=== PATIENT | female | born 1935 | race Caucasian/White ===

== ENCOUNTER 2018-02-26 10:01 | Inpatient (IN) ==
--- NOTE | 2018-02-26 10:15 | ED ---
HPI General Chief Complaint: Altered Mental Status Stated Complaint: Poss AMS Time Seen by Provider: 02/26/18 10:09 History of Present Illness HPI narrative: Patient is 82-year-old male was brought from longterm. Mental status, patient is responsible for pain stimuli, lethargic, oriented to her name only. She has history of dementia COPD CHF. Presented to us saturation of 84 on room air. She complained about pain all over. She has diminished breath sounds in both sides. Poor historian. Related Data Home Medications Medication Instructions Recorded Confirmed acetaminophen [Tylenol] 650 mg PO Q4H PRN 02/26/18 02/26/18 amlodipine [Norvasc] 5 mg PO DAILY 02/26/18 02/26/18 bisacodyl [Dulcolax (bisacodyl)] 10 mg MI DAILY PRN 02/26/18 02/26/18 furosemide [Lasix] 20 mg PO DAILY 02/26/18 02/26/18 ipratropium-albuterol 3 ml INHALATION BID 02/26/18 02/26/18 magnesium citrate [Citroma] 296 ml PO DAILY PRN 02/26/18 02/26/18 magnesium hydroxide [Milk Of 30 ml PO HS PRN 02/26/18 02/26/18 Magnesia Concentrated] mupirocin calcium [Bactroban Nasal] 1 applic INTRANASAL BID 02/26/18 02/26/18 nitroglycerin 0.4 mg SUBLINGUAL Q5-15M PRN 02/26/18 02/26/18 omeprazole 20 mg PO DAILY 02/26/18 02/26/18 quetiapine [Seroquel] 25 mg PO HS 02/26/18 02/26/18 sodium phosphates [Enema 118 ml MI DAILY PRN 02/26/18 02/26/18 Disposable] Allergies Allergy/AdvReac Type Severity Reaction Status Date / Time No Known Allergies Allergy Unverified 02/26/18 10:10 Review of Systems ROS: all other systems reviewed are negative Respiratory Reports as per HPI and Reports dyspnea PMFSH Medical History Medical History Sarbjit's disease (Acute) Adrenocortical insufficiency (Acute) Anxiety (Acute) Atrial fibrillation (Acute) COPD (chronic obstructive pulmonary disease) (Acute) Chronic kidney disease (Acute) 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) Constipation (Acute) Dementia (Acute) Dysphagia (Acute) GERD (gastroesophageal reflux disease) (Acute) Gastritis (Acute) HTN (hypertension) (Acute) Hyperlipidemia (Acute) Hypothyroidism (Acute) Pneumonia (Acute) Sleep apnea (Acute) Surgical history unknown (Acute) Social History Social History Substance History: Unable to Obtain Smoking Status: Unknown if ever smoked How Often Do You Have a Drink Containing Alcohol: Unable to Obtain Recent Travel in [facility] within the Last 8 Weeks: No Recent Out of Country Travel within the Last 8 Weeks: No Exam Narrative Exam Narrative: GENERAL: [-Patient is a 83-year-old female, altered, in respiratory distress] SKIN: Focused skin assessment warm/dry. HEAD: Atraumatic. Normocephalic. EYES: Pupils equal and round. No scleral icterus. No injection or drainage. ENT: No nasal bleeding or discharge. Mucous membranes pink and moist. NECK: Trachea midline. No JVD. CARDIOVASCULAR: Regular rate and rhythm. No murmur appreciated. RESPIRATORY: No accessory muscle use. Diffuse rhonchi no wheezing. Breath sounds diminished bilaterally. GASTROINTESTINAL: Abdomen soft, non-tender, nondistended. Hepatic and splenic margins not palpable. MUSCULOSKELETAL: No obvious deformities. No clubbing. No cyanosis. No edema. NEUROLOGICAL: Awake and alert. No obvious cranial nerve deficits. Motor grossly within normal limits. Normal speech. PSYCHIATRIC: Appropriate mood and affect; insight and judgment normal. Course Initial Documented Vital Signs Pulse Rate 91 H 02/26/18 10:06 Respiratory Rate 24 02/26/18 10:06 Pulse Oximetry 86 L 02/26/18 10:06 Last Documented Vital Signs Temperature 98.5 F 02/26/18 10:15 Pulse Rate 85 02/26/18 12:15 Respiratory Rate 26 H 02/26/18 12:15 Blood Pressure 78/56 L 02/26/18 12:15 Pulse Oximetry 100 02/26/18 12:15 Critical Care Time Critical Care Time: Yes Total Critical Care Time: 35 Attestation: Patient is septic, needs attention to vitals, 2 L of IV fluids given, blood pressure improved, patient was admitted for further evaluation and treatment. Case discussed with Dr. Mayen team, Dr. Aparicio oncologist. Medical Decision Making MDM Narrative Medical decision making narrative: Patient presented in respiratory distress Respiratory therapist will treat with DuoNeb Labs ordered Chest x-ray ordered Patient is septic most likely due to UTI and pneumonia treated with IV fluids and antibiotics Case discussed with Dr. Don team, accepted for admission Also spoke with Dr. Aparicio who was covering Dr. Zamorano patient oncologist and informing both admission Medical Screen Exam Complete: Yes Emergency Medical Condition: Yes Differential Diagnosis Differential Diagnosis: Pneumonia versus COPD exacerbation versus CHF exacerbation versus UTI versus CVA Lab Data Result diagrams: 02/26/18 10:50 02/26/18 10:50 Lab Results 02/26/18 02/26/18 02/26/18 Range/Units 10:15 10:45 10:50 WBC 6.6 (4.0-11.0) th/mm3 RBC 2.30 L (4.00-5.30) mil/mm3 Hgb 8.0 L (11.6-15.3) gm/dL Hct 24.4 L (35.0-46.0) % MCV 106.1 H (80.0-100.0) fL MCH 34.9 H (27.0-34.0) pg MCHC 32.9 (32.0-36.0) % RDW 26.0 H (11.6-17.2) % Plt Count 290 (150-450) th/mm3 MPV 9.4 (7.0-11.0) fL Prelim Diff (Auto) Slide review pending Neut % (Auto) 76.6 H (16.0-70.0) % Lymph % (Auto) 16.6 (9.0-44.0) % [place] % (Auto) 3.4 (0.0-8.0) % Eos % (Auto) 1.9 (0.0-4.0) % Baso % (Auto) 1.5 (0.0-2.0) % Neut # (Auto) 5.0 (1.8-7.7) th/mm3 Lymph # (Auto) 1.1 (1.0-4.8) th/mm3 [place] # (Auto) 0.2 (0.0-0.9) th/mm3 Eos # (Auto) 0.1 (0.0-0.4) th/mm3 Baso # (Auto) 0.1 (0.0-0.2) th/mm3 WBC Differential Manual diff final Seg Neuts % (Manual) 61 (16-70) % Band Neuts % (Manual) 24 H (0-6) % Lymphocytes % (Manual) 12 (9-44) % Eosinophils % (Manual) 1 (0-4) % Basophils % (Manual) 1 (0-2) % Myelocytes % (Man) 1 H (0-0) % Abs Neuts (Manual) 5.7 (1.8-7.7) th/mm3 Differential Comment . Platelet Estimate Normal (Normal) Platelet Morphology Enlarged H (Normal) Ovalocytes 1+ H (None) Keratocytes Occ H (None) PT (9.8-11.6) sec INR Ratio APTT (24.3-30.1) sec Puncture Site Right brachial Patient Temperature 98.6 O2 Saturation 98 (90-100) % ABG pH 7.47 H (7.380-7.420) ABG pCO2 46 H (38-42) mmHg ABG pO2 272 H (61-120) mmHg ABG HCO3 33 H (22-26) mmol/L ABG O2 Content 11.7 L (12.0-20.0) Vol % ABG Base Excess 8.9 H (-2-2) mmol/L ABG Methemoglobin 0.5 (0-2) % Betito Test Y Hemoglobin 8.0 L (12.0-16.0) G/DL Carboxyhemoglobin 1.5 (0-4) % O2 Delivery Device Nrb Liter Flow 15.00 L/M Critical Value No Sodium (136-145) meq/L Potassium (3.5-5.1) meq/L Chloride (98-107) meq/L Carbon Dioxide (21.0-32.0) meq/L Anion Gap (5-15) meq/L BUN (7-18) mg/dL Creatinine (0.50-1.00) mg/dL Estimated GFR (>89) mL/min POC Glucose (68-110) mg/dl Random Glucose (74-106) mg/dL Lactic Acid (0.4-2.0) mmol/L Calcium (8.5-10.1) mg/dL Total Bilirubin (0.2-1.0) mg/dL AST (15-37) U/L ALT (10-53) U/L Alkaline Phosphatase (45-117) U/L Troponin I (0.02-0.05) ng/mL B-Natriuretic Peptide (0-100) pg/mL Total Protein (6.4-8.2) g/dL Albumin (3.4-5.0) g/dL Urine Color Vickie (Yellw/Straw) Urine Clarity Hazy H (Clear) Urine pH 5.0 (5.0-8.5) Ur Specific [place] 1.013 (1.002-1.035) Urine Protein Negative (Neg-Trace) mg/dL Urine Glucose (UA) Negative (Negative) mg/dL Urine Ketones Negative (Negative) mg/dL Urine Occult Blood Negative (Negative) Urine Nitrate Negative (Negative) Urine Bilirubin Negative (Negative) Urine Urobilinogen Less than 2 (Less than 2) mg/dL Ur Leukocyte Esterase Moderate H (Negative) Urine RBC 2 (0-3) /hpf Urine WBC 28 H (0-5) /hpf Urine WBC Clumps Few H (None) Ur Squamous Epith Cells 9 (0-5) /hpf Ur Transition Epith Cell 4 (None) /hpf Amorphous Sediment Few H (None) /hpf Urine Bacteria Few H (None) /hpf Hyaline Casts 19 (0-3) /lpf Urine Mucus Few H (Occasional) /lpf Micro UA Comment Cath-culture ind Ur Microscopic Review Not Reportable Urine Culture Comments Cath-cult indicated 02/26/18 02/26/18 02/26/18 Range/Units 10:50 10:50 10:50 WBC (4.0-11.0) th/mm3 RBC (4.00-5.30) mil/mm3 Hgb (11.6-15.3) gm/dL Hct (35.0-46.0) % MCV (80.0-100.0) fL MCH (27.0-34.0) pg MCHC (32.0-36.0) % RDW (11.6-17.2) % Plt Count (150-450) th/mm3 MPV (7.0-11.0) fL Prelim Diff (Auto) Neut % (Auto) (16.0-70.0) % Lymph % (Auto) (9.0-44.0) % [place] % (Auto) (0.0-8.0) % Eos % (Auto) (0.0-4.0) % Baso % (Auto) (0.0-2.0) % Neut # (Auto) (1.8-7.7) th/mm3 Lymph # (Auto) (1.0-4.8) th/mm3 [place] # (Auto) (0.0-0.9) th/mm3 Eos # (Auto) (0.0-0.4) th/mm3 Baso # (Auto) (0.0-0.2) th/mm3 WBC Differential Seg Neuts % (Manual) (16-70) % Band Neuts % (Manual) (0-6) % Lymphocytes % (Manual) (9-44) % Eosinophils % (Manual) (0-4) % Basophils % (Manual) (0-2) % Myelocytes % (Man) (0-0) % Abs Neuts (Manual) (1.8-7.7) th/mm3 Differential Comment Platelet Estimate (Normal) Platelet Morphology (Normal) Ovalocytes (None) Keratocytes (None) PT 11.8 H (9.8-11.6) sec INR 1.2 Ratio APTT 29.1 (24.3-30.1) sec Puncture Site Patient Temperature O2 Saturation (90-100) % ABG pH (7.380-7.420) ABG pCO2 (38-42) mmHg ABG pO2 (61-120) mmHg ABG HCO3 (22-26) mmol/L ABG O2 Content (12.0-20.0) Vol % ABG Base Excess (-2-2) mmol/L ABG Methemoglobin (0-2) % Betito Test Hemoglobin (12.0-16.0) G/DL Carboxyhemoglobin (0-4) % O2 Delivery Device Liter Flow L/M Critical Value Sodium 142 (136-145) meq/L Potassium 2.8 L* (3.5-5.1) meq/L Chloride 100 (98-107) meq/L Carbon Dioxide 32.0 (21.0-32.0) meq/L Anion Gap 10 (5-15) meq/L BUN 17 (7-18) mg/dL Creatinine 2.97 H (0.50-1.00) mg/dL Estimated GFR 15 L (>89) mL/min POC Glucose (68-110) mg/dl Random Glucose 120 H (74-106) mg/dL Lactic Acid 0.5 (0.4-2.0) mmol/L Calcium 7.5 L (8.5-10.1) mg/dL Total Bilirubin 0.6 (0.2-1.0) mg/dL AST 11 L (15-37) U/L ALT 18 (10-53) U/L Alkaline Phosphatase 59 (45-117) U/L Troponin I 0.03 (0.02-0.05) ng/mL B-Natriuretic Peptide (0-100) pg/mL Total Protein 5.9 L (6.4-8.2) g/dL Albumin 2.6 L (3.4-5.0) g/dL Urine Color (Yellw/Straw) Urine Clarity (Clear) Urine pH (5.0-8.5) Ur Specific [place] (1.002-1.035) Urine Protein (Neg-Trace) mg/dL Urine Glucose (UA) (Negative) mg/dL Urine Ketones (Negative) mg/dL Urine Occult Blood (Negative) Urine Nitrate (Negative) Urine Bilirubin (Negative) Urine Urobilinogen (Less than 2) mg/dL Ur Leukocyte Esterase (Negative) Urine RBC (0-3) /hpf Urine WBC (0-5) /hpf Urine WBC Clumps (None) Ur Squamous Epith Cells (0-5) /hpf Ur Transition Epith Cell (None) /hpf Amorphous Sediment (None) /hpf Urine Bacteria (None) /hpf Hyaline Casts (0-3) /lpf Urine Mucus (Occasional) /lpf Micro UA Comment Ur Microscopic Review Urine Culture Comments 02/26/18 02/26/18 Range/Units 10:50 10:50 WBC (4.0-11.0) th/mm3 RBC (4.00-5.30) mil/mm3 Hgb (11.6-15.3) gm/dL Hct (35.0-46.0) % MCV (80.0-100.0) fL MCH (27.0-34.0) pg MCHC (32.0-36.0) % RDW (11.6-17.2) % Plt Count (150-450) th/mm3 MPV (7.0-11.0) fL Prelim Diff (Auto) Neut % (Auto) (16.0-70.0) % Lymph % (Auto) (9.0-44.0) % [place] % (Auto) (0.0-8.0) % Eos % (Auto) (0.0-4.0) % Baso % (Auto) (0.0-2.0) % Neut # (Auto) (1.8-7.7) th/mm3 Lymph # (Auto) (1.0-4.8) th/mm3 [place] # (Auto) (0.0-0.9) th/mm3 Eos # (Auto) (0.0-0.4) th/mm3 Baso # (Auto) (0.0-0.2) th/mm3 WBC Differential Seg Neuts % (Manual) (16-70) % Band Neuts % (Manual) (0-6) % Lymphocytes % (Manual) (9-44) % Eosinophils % (Manual) (0-4) % Basophils % (Manual) (0-2) % Myelocytes % (Man) (0-0) % Abs Neuts (Manual) (1.8-7.7) th/mm3 Differential Comment Platelet Estimate (Normal) Platelet Morphology (Normal) Ovalocytes (None) Keratocytes (None) PT (9.8-11.6) sec INR Ratio APTT (24.3-30.1) sec Puncture Site Patient Temperature O2 Saturation (90-100) % ABG pH (7.380-7.420) ABG pCO2 (38-42) mmHg ABG pO2 (61-120) mmHg ABG HCO3 (22-26) mmol/L ABG O2 Content (12.0-20.0) Vol % ABG Base Excess (-2-2) mmol/L ABG Methemoglobin (0-2) % [place] Test Hemoglobin (12.0-16.0) G/DL Carboxyhemoglobin (0-4) % O2 Delivery Device Liter Flow L/M Critical Value Sodium (136-145) meq/L Potassium (3.5-5.1) meq/L Chloride (98-107) meq/L Carbon Dioxide (21.0-32.0) meq/L Anion Gap (5-15) meq/L BUN (7-18) mg/dL Creatinine (0.50-1.00) mg/dL Estimated GFR (>89) mL/min POC Glucose 131 H (68-110) mg/dl Random Glucose (74-106) mg/dL Lactic Acid (0.4-2.0) mmol/L Calcium (8.5-10.1) mg/dL Total Bilirubin (0.2-1.0) mg/dL AST (15-37) U/L ALT (10-53) U/L Alkaline Phosphatase (45-117) U/L Troponin I (0.02-0.05) ng/mL B-Natriuretic Peptide 10 (0-100) pg/mL Total Protein (6.4-8.2) g/dL Albumin (3.4-5.0) g/dL Urine Color (Yellw/Straw) Urine Clarity (Clear) Urine pH (5.0-8.5) Ur Specific [place] (1.002-1.035) Urine Protein (Neg-Trace) mg/dL Urine Glucose (UA) (Negative) mg/dL Urine Ketones (Negative) mg/dL Urine Occult Blood (Negative) Urine Nitrate (Negative) Urine Bilirubin (Negative) Urine Urobilinogen (Less than 2) mg/dL Ur Leukocyte Esterase (Negative) Urine RBC (0-3) /hpf Urine WBC (0-5) /hpf Urine WBC Clumps (None) Ur Squamous Epith Cells (0-5) /hpf Ur Transition Epith Cell (None) /hpf Amorphous Sediment (None) /hpf Urine Bacteria (None) /hpf Hyaline Casts (0-3) /lpf Urine Mucus (Occasional) /lpf Micro UA Comment Ur Microscopic Review Urine Culture Comments Imaging Data Radiologist's impression: Chest X-Ray 02/26/18 10:15 CONCLUSION: Mild pulmonary vascular congestion. Heart is enlarged. Head CT 02/26/18 10:15 CONCLUSION: 1. 1.1 x 0.8 cm hyperdense mass in the right CP angle which likely reflects a meningioma. This does not have the typical appearance for hemorrhage although hemorrhage cannot be entirely excluded. Comparisons with prior exams if they can be made available would be beneficial in further evaluation. Alternatively, MRI examination with contrast may be obtained for better characterization. . Discharge Plan Discharge Disposition Patient Disposition: 30 Still Patient Discharge Condition Condition: Serious Discharge Details Diagnosis: Altered mental status, Sepsis, Aspiration pneumonia, Acute UTI Physicians Team ED Provider: Wilbert Kim Primary Care Provider: Woody Don Rxs /Orders / Referrals /Forms Prescriptions: No Action quetiapine [Seroquel] 25 mg Tablet 25 mg PO HS RF: 0 acetaminophen [Tylenol] 325 mg Tablet 650 mg PO Q4H PRN (Reason: Pain/Temp elevation) RF: 0 ipratropium-albuterol 0.5 mg-3 mg(2.5 mg base)/3 mL Solution For Nebulization 3 ml INHALATION BID RF: 0 amlodipine [Norvasc] 5 mg Tablet 5 mg PO DAILY RF: 0 bisacodyl [Dulcolax (bisacodyl)] 10 mg Suppository 10 mg MI DAILY PRN (Reason: If no reults 1 day after MOM) RF: 0 sodium phosphates [Enema Disposable] 19-7 gram/118 mL Enema 118 ml MI DAILY PRN (Reason: If no results 1 day after supp) RF: 0 nitroglycerin 0.4 mg Tablet, Sublingual 0.4 mg SUBLINGUAL Q5-15M PRN (Reason: Chest Pain) RF: 0 magnesium citrate [Citroma] Solution 296 ml PO DAILY PRN (Reason: If no results from enema) RF: 0 furosemide [Lasix] 20 mg Tablet 20 mg PO DAILY RF: 0 mupirocin calcium [Bactroban Nasal] 2 % Ointment 1 applic INTRANASAL BID RF: 0 magnesium hydroxide [Milk Of Magnesia Concentrated] 2,400 mg/10 mL Suspension 30 ml PO HS PRN (Reason: If no BM in 3 days) RF: 0 omeprazole 20 mg Tablet,Delayed Release (Dr/Ec) 20 mg PO DAILY RF: 0 Discharge Interventions Interventions: Vital Signs Last Done: 02/26/18 12:15 Status ED Status: With Doctor
[2018-02-26] MEDS ORDERED: Piperacil/Tazo 3.375 GM Premix 50 ML IV.SIG ONE (10:23)
[2018-02-26] MEDS: Sod Chloride 0.9% Inj 1,000 ML IV.CONT SCH ×8 (10:26→21:15)
[2018-02-26] MEDS ORDERED: Sod Chloride 0.9% Inj 1,000 ML IV.CONT SCH (10:30)
--- NOTE | 2018-02-26 10:45 | XR ---
EXAM DATE: 02/26/2018 10:41 AM EDT AGE/SEX: 82 years / Female INDICATIONS: Unresponsive CLINICAL DATA: This is the patient's initial encounter. Patient reports that signs and symptoms have been present for 1 day and indicates a pain score of Nonresponsive. MEDICAL/SURGICAL HISTORY: Chronic obstructive pulmonary disease. Non-responsive. COMPARISON: No prior exams available for comparison. FINDINGS: Single view the chest centered the heart is enlarged. There is mild pulmonary vascular prominence. Th ere is no visible pneumothorax. No infiltrate or mass is seen. Marked osteoarthritis left shoulder CONCLUSION: Mild pulmonary vascular congestion. Heart is enlarged. Electronically signed by: Aurelio Vera MD 02/26/2018 10:44 AM EDT
[2018-02-26 10:57] LABS: ABG Base Excess 8.9 mmol/L (-2-2); ABG PCO2 46 mmHg (38-42); ABG PO2 272 mmHg (61-120)
[2018-02-26] MEDS: Vancomycin Inj 1,000 MG in Sodium Chlor 0.9% Inj 250 ML IV.SIG SCH ×2 (11:06→23:42)
[2018-02-26 11:25] LABS: Amorphous Sediment,Urine Few /hpf; Bacteria,Urine Few /hpf; Bilirubin,Urine Negative (Negative); Color,Urine Amber (Yellw/Straw); Glucose,Urine (UA) Negative (Negative); Hyaline Casts,Urine 19 /lpf (0-3); Leukocyte Esterase,Urine Moderate (Negative); Mucus,Urine Few /lpf (Occasional); Nitrite,Urine Negative (Negative); Specific Gravity,Urine 1.013 (1.002-1.035); Squamous Epithelial Cell,Urine 9 /hpf (0-5); Transitional Epi Cells,Urine 4 /hpf
[2018-02-26 11:26] LABS: Clarity,Urine Hazy (Clear)
[2018-02-26 11:27] LABS: Baso # (Auto) 0.1 th/mm3 (0.0-0.2); Baso % (Auto) 1.5 % (0.0-2.0); Eos # (Auto) 0.1 th/mm3 (0.0-0.4); Eos % (Auto) 1.9 % (0.0-4.0); Hematocrit 24.4 % (35.0-46.0); Lymph # (Auto) 1.1 th/mm3 (1.0-4.8); Lymph % (Auto) 16.6 % (9.0-44.0); Mean Corpuscular HGB Conc 32.9 % (32.0-36.0); Mean Corpuscular Hemoglobin 34.9 pg (27.0-34.0); Mean Corpuscular Volume 106.1 fL (80.0-100.0); Mean Platelet Volume 9.4 fL (7.0-11.0); Mono # (Auto) 0.2 th/mm3 (0.0-0.9); Mono % (Auto) 3.4 % (0.0-8.0); Neut % (Auto) 76.6 % (16.0-70.0); Platelet Count 290 th/mm3 (150-450); White Blood Count 6.6 th/mm3 (4.0-11.0)
[2018-02-26 11:29] LABS: Activated Partial Thrombo Time 29.1 sec (24.3-30.1); INR 1.2 Ratio; Prothrombin Time 11.8 sec (9.8-11.6)
--- NOTE | 2018-02-26 11:41 | CT ---
EXAM DATE: 02/26/2018 11:35 AM EDT AGE/SEX: 82 years / Female INDICATIONS: Altered mental status CLINICAL DATA: This is the patient's initial encounter. Patient reports that signs and symptoms have been present for 1 day and indicates a pain score of Nonresponsive. MEDICAL/SURGICAL HISTORY: Chronic obstructive pulmonary disease. Dementia. None. RADIATION DOSE: 33.68 CTDI (mGy) COMPARISON: No prior exams available for comparison. TECHNIQUE: CT of the head without contrast. Using automated exposure control and adjustment of the mA and/or kV according to patient size, radiation dose was kept as low as reasonably achievable to ob tain optimal diagnostic quality images. DICOM format image data is available electronically for revi ew and comparison. FINDINGS: Cerebrum: Moderate diffuse cerebral atrophy. The ventricles are normal for degree of atrophy. Modera te periventricular white matter hypodensities. No evidence of midline shift, mass lesion, hemorrhage or acute infarction. No extraaxial fluid collections are seen. Posterior Fossa: There is a 1.1 x 0.8 cm hyperdense mass in the right CP angle which is incompletely imaged due to motion artifact. Does appear to potentially have a dural tail superiorly. The cerebell um and brainstem are intact. The 4th ventricle is midline. The cerebellopontine angle is unremarkab le. Extracranial: The visualized portion of the orbits is intact. Skull: The calvaria is intact. No evidence of skull fracture. CONCLUSION: 1. 1.1 x 0.8 cm hyperdense mass in the right CP angle which likely reflects a meningioma. This does not have the typical appearance for hemorrhage although hemorrhage cannot be entirely excluded. Fabio risons with prior exams if they can be made available would be beneficial in further evaluation. Alte rnatively, MRI examination with contrast may be obtained for better characterization. . Electronically signed by: Anthony De La Paz MD 02/26/2018 11:40 AM EDT
[2018-02-26 11:53] LABS: Albumin 2.6 g/dL (3.4-5.0); Anion Gap 10 meq/L (5-15); Aspartate Aminotransferase 11 U/L (15-37); Blood Urea Nitrogen 17 mg/dL (7-18); Calcium 7.5 mg/dL (8.5-10.1); Chloride 100 meq/L (98-107); Glomerular Filtration Rate 15 mL/min (>89); Glucose,Random 120 mg/dL (74-106); Sodium 142 meq/L (136-145)
[2018-02-26 11:58] LABS: Potassium 2.8 meq/L (3.5-5.1)
[2018-02-26 12:15] LABS: Alanine Aminotransferase 18 U/L (10-53); Alkaline Phosphatase 59 U/L (45-117); Total Protein 5.9 g/dL (6.4-8.2); Troponin I 0.03 ng/mL (0.02-0.05)
[2018-02-26 12:17] LABS: Eosinophils 1 % (0-4); Lymphocytes 12 % (9-44); Myelocytes 1 % (0-0)
[2018-02-26] MEDS ORDERED: Potassium Chlor 40 mEq Premix 40 MEQ/100 ML PIGGYBACK IV.SIG ONE (12:17)
[2018-02-26 12:20] LABS: Ovalocytes 1+; Platelet Estimate Normal (Normal)
[2018-02-26] MEDS ORDERED: Nitroglycerin SL (Override) 0.4 MG Tab SL PRN (13:18)
[2018-02-26] MEDS: Potassium Chlor 10 mEq Premix 10 MEQ/100 ML PIGGYBACK IV.SIG SCH ×4 (14:06→18:22)
[2018-02-26] MEDS ORDERED: Bisacodyl 10 MG Supp RECTAL PRN (14:38)
--- NOTE | 2018-02-26 17:33 | P.HPFP ---
History of Present Illness Service: [facility] Primary Care Physician: Woody Don DO Chief Complaint: altered mental status confused History of Present Illness: pt has had recurrent pneumoniae may be aspiration or a resistant organism not identified - Diagnosis (1) Aspiration pneumonia Inpatient Certification: I certify that the inpatient services were ordered in accordance with Medicare regulations governing the order. This includes certification that hospital inpatient services are reasonable and necessary and in the case of services not specified as inpatient-only under 42 CFR 419.22(n), that they are appropriately provided as inpatient services in accordance to with the 2-midnight benchmark under 43 CFR 412.3(e) Estimated Total Length of Stay (Days): 3 Plans for Post Hospital Care: SNF Review of Systems All other systems reviewed negative except as stated in HPI Respiratory: Reports cough, Reports shortness of breath PMFSH - History History Provided By: Medical Record - Medical History Medical History: Medical History (Last Updated 02/26/18 @ 10:52 by Meera Rhodes) Sarbjit's disease Adrenocortical insufficiency Anxiety Atrial fibrillation COPD (chronic obstructive pulmonary disease) Chronic kidney disease Congenital stenosis and stricture of esophagus Constipation Dementia Dysphagia GERD (gastroesophageal reflux disease) Gastritis HTN (hypertension) Hyperlipidemia Hypothyroidism Pneumonia Sleep apnea Surgical history unknown - Tobacco History Smoking Status: Unknown if ever smoked - Alcohol History How Often Do You Have a Drink Containing Alcohol: Unable to Obtain - Substance Use History Substance History: Unable to Obtain - Travel History Recent Travel in the [place] Within the Last 8 Weeks: No Recent Travel Out of the Country Within the Last 8 Weeks: No - Immunization History Tetanus Immunization: Unable to Assess Hx Influenza Vaccine This Season: Unable to Assess Medications and Allergies Active Medications: Active Medications Acetaminophen (Tylenol) 650 mg PO Q4H PRN PRN Reason: Pain 1-10/Temp elevation Albuterol (Duoneb Neb (Mirian)) 1 ampul NEB BID NEB [facility] Bisacodyl (Dulcolax Supp) 10 mg RECTAL DAILY PRN PRN Reason: If no reults 1 day after MOM Sodium Chloride (Ns Inj) 1,000 mls @ 150 mls/hr IV.CONT .Q6H40M [facility] Last Admin: 02/26/18 10:26 Dose: 125 mls/hr Vancomycin HCl 1,000 mg/ (Sodium Chloride) 250 mls @ 250 mls/hr IV.SIG Q12H [facility] Stop: 02/26/18 23:59 Last Infusion: 02/26/18 12:15 Dose: Infused Sodium Chloride (Ns Inj) 1,000 mls @ 1,000 mls/hr IV.CONT .Q1H [facility] Last Admin: 02/26/18 17:18 Dose: Not Given Nitroglycerin (Nitrostat Sl (Override)) 0.4 mg SL Q5M PRN PRN Reason: Chest Pain Pantoprazole Sodium (Protonix) 20 mg PO DAILY [facility]IAN Quetiapine Fumarate (Seroquel) 25 mg PO HS [facility] Sodium Chloride (Ns Flush) 2 ml IV.FLUSH PRN PRN PRN Reason: FLUSH AFTER USING IV ACCESS Sodium Chloride (Ns Flush) 2 ml IV.FLUSH PRN PRN PRN Reason: FLUSH AFTER USING IV ACCESS Allergies Allergy/AdvReac Type Severity Reaction Status Date / Time No Known Allergies Allergy Unverified 02/26/18 10:10 Home Medications Medication Instructions Recorded Confirmed Type acetaminophen [Tylenol] 650 mg PO Q4H PRN 02/26/18 02/26/18 History amlodipine [Norvasc] 5 mg PO DAILY 02/26/18 02/26/18 History bisacodyl [Dulcolax (bisacodyl)] 10 mg MI DAILY PRN 02/26/18 02/26/18 History furosemide [Lasix] 20 mg PO DAILY 02/26/18 02/26/18 History ipratropium-albuterol 3 ml INHALATION BID 02/26/18 02/26/18 History magnesium citrate [Citroma] 296 ml PO DAILY PRN 02/26/18 02/26/18 History magnesium hydroxide [Milk Of 30 ml PO HS PRN 02/26/18 02/26/18 History Magnesia Concentrated] mupirocin calcium [Bactroban Nasal] 1 applic INTRANASAL BID 02/26/18 02/26/18 History nitroglycerin 0.4 mg SUBLINGUAL Q5-15M PRN 02/26/18 02/26/18 History omeprazole 20 mg PO DAILY 02/26/18 02/26/18 History quetiapine [Seroquel] 25 mg PO HS 02/26/18 02/26/18 History sodium phosphates [Enema 118 ml MI DAILY PRN 02/26/18 02/26/18 History Disposable] Exam Vital signs: Vital Signs 02/26/18 10:06 02/26/18 10:15 02/26/18 10:25 Temperature 98.5 F Pulse Rate 91 H 93 H 98 H Respiratory Rate 24 24 14 Blood Pressure 74/45 L Pulse Oximetry 86 L 96 02/26/18 10:30 02/26/18 10:32 02/26/18 10:55 Temperature Pulse Rate 87 Respiratory Rate 24 24 Blood Pressure 109/54 L Pulse Oximetry 96 97 97 02/26/18 11:00 02/26/18 11:53 02/26/18 12:15 Temperature Pulse Rate 82 82 85 Respiratory Rate 26 H 26 H 26 H Blood Pressure 93/62 L 102/50 L 78/56 L Pulse Oximetry 98 98 100 02/26/18 12:30 02/26/18 13:30 02/26/18 14:00 Temperature Pulse Rate 80 82 91 H Respiratory Rate 24 24 24 Blood Pressure 84/47 L 94/54 L 113/56 L Pulse Oximetry 100 100 100 02/26/18 15:08 02/26/18 15:27 Temperature Pulse Rate 85 Respiratory Rate 22 21 Blood Pressure 104/68 Pulse Oximetry 100 Intake & Output 02/25/18 02/26/18 02/26/18 18:59 06:59 18:59 Intake Total 1450 / 1450 Balance 1450 / 1450 Weight 77.111 kg Intake: IV 1450 / 1450 NS Inj 1,000 ML @ 1000 mls/hr 1000 / 1000 IV.CONT .Q1H [facility] Rx#:[id number] KCl 10 mEq Premix Inj 10 meq In 200 / 200 100 ml @ 100 mls/hr IV.SIG Q1H [facility] Rx#:[id number] Vancomycin Inj 1,000 MG In NS 250 / 250 Inj 250 ML @ 250 mls/hr IV.SIG Q12H [facility] Rx#:[id number] - Routine Neurological Exam Present: altered mental status Results - Labs Result diagrams: 02/26/18 10:50 02/26/18 10:50 Abnormal lab results 02/26/18 02/26/18 02/26/18 Range/Units 10:15 10:45 10:50 RBC 2.30 L (4.00-5.30) mil/mm3 Hgb 8.0 L (11.6-15.3) gm/dL Hct 24.4 L (35.0-46.0) % MCV 106.1 H (80.0-100.0) fL MCH 34.9 H (27.0-34.0) pg RDW 26.0 H (11.6-17.2) % Neut % (Auto) 76.6 H (16.0-70.0) % Band Neuts % (Manual) 24 H (0-6) % Myelocytes % (Man) 1 H (0-0) % Platelet Morphology Enlarged H (Normal) Ovalocytes 1+ H (None) Keratocytes Occ H (None) PT (9.8-11.6) sec ABG pH 7.47 H (7.380-7.420) ABG pCO2 46 H (38-42) mmHg ABG pO2 272 H (61-120) mmHg ABG HCO3 33 H (22-26) mmol/L ABG O2 Content 11.7 L (12.0-20.0) Vol % ABG Base Excess 8.9 H (-2-2) mmol/L Hemoglobin 8.0 L (12.0-16.0) G/DL Potassium (3.5-5.1) meq/L Creatinine (0.50-1.00) mg/dL Estimated GFR (>89) mL/min POC Glucose (68-110) mg/dl Random Glucose (74-106) mg/dL Calcium (8.5-10.1) mg/dL AST (15-37) U/L Total Protein (6.4-8.2) g/dL Albumin (3.4-5.0) g/dL Urine Clarity Hazy H (Clear) Ur Leukocyte Esterase Moderate H (Negative) Urine WBC 28 H (0-5) /hpf Urine WBC Clumps Few H (None) Amorphous Sediment Few H (None) /hpf Urine Bacteria Few H (None) /hpf Urine Mucus Few H (Occasional) /lpf 02/26/18 02/26/18 02/26/18 Range/Units 10:50 10:50 10:50 RBC (4.00-5.30) mil/mm3 Hgb (11.6-15.3) gm/dL Hct (35.0-46.0) % MCV (80.0-100.0) fL MCH (27.0-34.0) pg RDW (11.6-17.2) % Neut % (Auto) (16.0-70.0) % Band Neuts % (Manual) (0-6) % Myelocytes % (Man) (0-0) % Platelet Morphology (Normal) Ovalocytes (None) Keratocytes (None) PT 11.8 H (9.8-11.6) sec ABG pH (7.380-7.420) ABG pCO2 (38-42) mmHg ABG pO2 (61-120) mmHg ABG HCO3 (22-26) mmol/L ABG O2 Content (12.0-20.0) Vol % ABG Base Excess (-2-2) mmol/L Hemoglobin (12.0-16.0) G/DL Potassium 2.8 L* (3.5-5.1) meq/L Creatinine 2.97 H (0.50-1.00) mg/dL Estimated GFR 15 L (>89) mL/min POC Glucose 131 H (68-110) mg/dl Random Glucose 120 H (74-106) mg/dL Calcium 7.5 L (8.5-10.1) mg/dL AST 11 L (15-37) U/L Total Protein 5.9 L (6.4-8.2) g/dL Albumin 2.6 L (3.4-5.0) g/dL Urine Clarity (Clear) Ur Leukocyte Esterase (Negative) Urine WBC (0-5) /hpf Urine WBC Clumps (None) Amorphous Sediment (None) /hpf Urine Bacteria (None) /hpf Urine Mucus (Occasional) /lpf Short CBC 02/26/18 Range/Units 10:50 WBC 6.6 (4.0-11.0) th/mm3 Hgb 8.0 L (11.6-15.3) gm/dL Hct 24.4 L (35.0-46.0) % Plt Count 290 (150-450) th/mm3 BMP 02/26/18 10:50 Sodium 142 Potassium 2.8 L* Chloride 100 Carbon Dioxide 32.0 BUN 17 Creatinine 2.97 H Calcium 7.5 L Cardiac Enzymes 02/26/18 Range/Units 10:50 Troponin I 0.03 (0.02-0.05) ng/mL Liver Function 02/26/18 Range/Units 10:50 Total Bilirubin 0.6 (0.2-1.0) mg/dL AST 11 L (15-37) U/L ALT 18 (10-53) U/L Alkaline Phosphatase 59 (45-117) U/L Albumin 2.6 L (3.4-5.0) g/dL Urine 02/26/18 Range/Units 10:45 Urine Color Vickie (Yellw/Straw) Urine Clarity Hazy H (Clear) Urine pH 5.0 (5.0-8.5) Ur Specific [place] 1.013 (1.002-1.035) Urine Protein Negative (Neg-Trace) mg/dL Urine Glucose (UA) Negative (Negative) mg/dL - Imaging Impressions Chest X-Ray 02/26/18 10:15 CONCLUSION: Mild pulmonary vascular congestion. Heart is enlarged. Head CT 02/26/18 10:15 CONCLUSION: 1. 1.1 x 0.8 cm hyperdense mass in the right CP angle which likely reflects a meningioma. This does not have the typical appearance for hemorrhage although hemorrhage cannot be entirely excluded. Comparisons with prior exams if they can be made available would be beneficial in further evaluation. Alternatively, MRI examination with contrast may be obtained for better characterization. . Caprini VTE Risk Assessment Caprini VTE Risk Assessment: No/Low Risk (score <= 1) Caprini Risk Assessment Model: Point Value = 1 Point Value = 2 Point Value = 3 Point Value = 5 Age 41-60 Minor surgery BMI > 25 kg/m2 Swollen legs Varicose veins or History of unexplained or recurrent spontaneous Oral contraceptives or hormone replacement Sepsis (< 1 month) Serious lung disease, including pneumonia (< 1 month) Abnormal pulmonary function Acute myocardial infarction Congestive heart failure (< 1 month) History of inflammatory bowel disease Medical patient at bed rest Age 61-74 Arthroscopic surgery Major open surgery (> 45 min) Laparoscopic surgery (> 45 min) Malignancy Confined to bed (> 72 hours) Immobilizing plaster cast Central venous access Age >= 75 History of VTE Family history of VTE Factor V Leiden Prothrombin [id number] Lupus anticoagulant Anticardiolipin antibodies Elevated serum homocysteine Heparin-induced thrombocytopenia Other congenital or acquired thrombophilia Stroke (< 1 month) Elective arthroplasty Hip, pelvis, or leg fracture Acute spinal cord injury (< 1 month) Prophylaxis Regimen: Total Risk Factor Score Risk Level Prophylaxis Regimen 0-1 Low Early ambulation 2 Moderate Order ONE of the following: *Sequential Compression Device (SCD) *Heparin 5000 units SQ BID 3-4 Higher Order ONE of the following medications: *Heparin 5000 units SQ TID *Enoxaparin/Lovenox 40 mg SQ daily (WT < 150 kg, CrCl > 30 mL/min) *Enoxaparin/Lovenox 30 mg SQ daily (WT < 150 kg, CrCl > 10-29 mL/min) *Enoxaparin/Lovenox 30 mg SQ BID (WT < 150 kg, CrCl > 30 mL/min) AND/OR *Sequential Compression Device (SCD) 5 or more Highest Order ONE of the following medications: *Heparin 5000 units SQ TID (Preferred with Epidurals) *Enoxaparin/Lovenox 40 mg SQ daily (WT < 150 kg, CrCl > 30 mL/min) *Enoxaparin/Lovenox 30 mg SQ daily (WT < 150 kg, CrCl > 10-29 mL/min) *Enoxaparin/Lovenox 30 mg SQ BID (WT < 150 kg, CrCl > 30 mL/min) AND *Sequential Compression Device (SCD) Assessment and Plan - Assessment (1) Aspiration pneumonia Code(s): J69.0 - Pneumonitis due to inhalation of food and vomit Status: Acute - Assessment and Plan iv abx pulmonary and ID consult
--- NOTE | 2018-02-26 17:40 | ECG ---
Date Performed: 02/26/2018 Time Performed: 10:40:33 PTAGE: 82 years EKG: Sinus rhythm ST DEVIATION AND MODERATE T-WAVE ABNORMALITY, CONSIDER ANTEROLATERAL ISCHEMIA ABNORMAL ECG NO PREVIOUS TRACING DOCTOR: Sae German Interpretating Date/Time 02/26/2018 17:37:30
[2018-02-26 20:05] LABS: Hematocrit 26.1 % (35.0-46.0); Hemoglobin 8.3 gm/dL (11.6-15.3); Mean Corpuscular Hemoglobin 34.8 pg (27.0-34.0); Mean Corpuscular Volume 108.7 fL (80.0-100.0); Mean Platelet Volume 9.9 fL (7.0-11.0); Platelet Count 280 th/mm3 (150-450); Red Cell Distribution Width 26.3 % (11.6-17.2); White Blood Count 6.7 th/mm3 (4.0-11.0)
[2018-02-26 20:20] LABS: Calcium 6.8 mg/dL (8.5-10.1); Carbon Dioxide 31.7 meq/L (21.0-32.0); Potassium 3.4 meq/L (3.5-5.1)
[2018-02-26 20:38] LABS: Total Protein 6.3 g/dL (6.4-8.2)
[2018-02-26] MEDS ORDERED: QUEtiapine 25 MG Tablet PO SCH (21:00)
--- NOTE | 2018-02-26 21:31 | MB ---
cc: Romario Wilks MD DATE: 02/26/2018 REQUESTING PHYSICIAN: Woody Don DO REASON FOR CONSULTATION: Pneumonia. HISTORY OF PRESENT ILLNESS: Mrs. Cano is an 82-year-old female who lives in the residential. She was brought from the residential because of less responsiveness. She was very lethargic, barely responding to painful stimuli. The patient was evaluated in the emergency room. She had a workup done. Her CBC shows WBC count of 6.6, hemoglobin 8, hematocrit 24.4, MCV 96, platelet count 290. Sodium 142, potassium 2.8, chloride 100, CO2 32, BUN 17, creatinine 2.97. Blood gas on 15 liter nonrebreather mask, pH 7.47, pCO2 of 46, pO2 272, bicarbonate 33, saturation 98%. Her chest x-ray shows mild vascular congestion and cardiomegaly. She had a CT scan of the head done, which shows moderate diffuse cerebral atrophy. The patient is obtunded. There is some response to sternal rubs. PAST MEDICAL HISTORY: As per record is significant for history of chronic obstructive pulmonary disease, CHF, recurrent pneumonia, dementia. MEDICATIONS: She is currently takin. Tylenol 2. Albuterol. 3. Atrovent nebulizer treatment. 4. Nitroglycerin. 4. Protonix 20 mg a day. 5. Seroquel 25 mg a day. 6. Vancomycin IV. 7. Zosyn IV. ALLERGIES: NO KNOWN DRUG ALLERGIES. FAMILY HISTORY: Noncontributory. PHYSICAL EXAMINATION: GENERAL: Elderly female, minimal response to sternal rub. VITAL SIGNS: Her blood pressure 104/68, heart rate 84, respirations 22, saturation 100%. HEENT: Pupils reactive to light. NECK: Supple. JVD not raised. CHEST: Equal bilaterally. No rhonchi. HEART: S1, S2 normal. ABDOMEN: Soft, nondistended. Bowel sounds are present. EXTREMITIES: No edema. IMPRESSION: 1. Respiratory failure. 2. Pneumonia, possible aspiration. 3. Dementia. 4. Anemia. 5. Renal insufficiency. 6. Hypokalemia. PLAN: We will continue antibiotics vancomycin and Zosyn. Check her cultures. Supplemental oxygen and wean oxygen to keep the saturation greater than 90%. Her potassium is being replaced. Monitor electrolytes. Further treatment pending the course in the hospital. Thank you Dr. Don for this consult. MD GIL Almeida/ns/do , 05:47 PM , 05:56 PM HERMILA
[2018-02-26] MEDS ORDERED: Custom Consult Pharmacy OTHER PRN (21:45)
[2018-02-26 21:48] LABS: Eosinophils 4 % (0-4); Lymphocytes 7 % (9-44); Metamyelocytes 1 % (0-1); Monocytes 2 % (0-8)
[2018-02-26] MEDS ORDERED: Calcium Chloride Inj 1 GM in Sodium Chlor 0.9% Inj 100 ML IV.SIG ONE (22:00)
[2018-02-26 22:13] LABS: Dimorphic RBC Present
[2018-02-26 22:15] LABS: Platelet Estimate Normal (Normal)
[2018-02-27] MEDS: Sod Chloride 0.9% Inj 1,000 ML IV.CONT SCH ×3 (02:23→16:45)
[2018-02-27 07:39] LABS: Calcium 7.6 mg/dL (8.5-10.1); Carbon Dioxide 28.2 meq/L (21.0-32.0); Potassium 3.4 meq/L (3.5-5.1)
[2018-02-27 07:51] LABS: Hematocrit 25.6 % (35.0-46.0); Hemoglobin 8.2 gm/dL (11.6-15.3); Mean Corpuscular HGB Conc 31.8 % (32.0-36.0); Mean Corpuscular Hemoglobin 34.4 pg (27.0-34.0); Mean Corpuscular Volume 108.1 fL (80.0-100.0); Mean Platelet Volume 9.7 fL (7.0-11.0); Platelet Count 235 th/mm3 (150-450); Red Blood Count 2.37 mil/mm3 (4.00-5.30); Red Cell Distribution Width 26.8 % (11.6-17.2); White Blood Count 5.7 th/mm3 (4.0-11.0)
[2018-02-27] MEDS: Pantoprazole Sodium 20 MG DR Tablet PO SCH ×2 (08:53→11:12)
--- NOTE | 2018-02-27 08:57 | P.PNFP ---
Subjective Interval history: No apparent distress Somnolent Results - Labs Result diagrams: 02/27/18 07:06 02/27/18 07:06 Abnormal lab results 02/26/18 02/26/18 02/26/18 Range/Units 10:15 10:45 10:50 RBC 2.30 L (4.00-5.30) mil/mm3 Hgb 8.0 L (11.6-15.3) gm/dL Hct 24.4 L (35.0-46.0) % MCV 106.1 H (80.0-100.0) fL MCH 34.9 H (27.0-34.0) pg MCHC (32.0-36.0) % RDW 26.0 H (11.6-17.2) % Neut % (Auto) 76.6 H (16.0-70.0) % Band Neuts % (Manual) 24 H (0-6) % Lymphocytes % (Manual) (9-44) % Myelocytes % (Man) 1 H (0-0) % Platelet Morphology Enlarged H (Normal) Dimorphic RBCs (None) Basophilic Stippling (None) Ovalocytes 1+ H (None) Keratocytes Occ H (None) PT (9.8-11.6) sec ABG pH 7.47 H (7.380-7.420) ABG pCO2 46 H (38-42) mmHg ABG pO2 272 H (61-120) mmHg ABG HCO3 33 H (22-26) mmol/L ABG O2 Content 11.7 L (12.0-20.0) Vol % ABG Base Excess 8.9 H (-2-2) mmol/L Hemoglobin 8.0 L (12.0-16.0) G/DL Sodium (136-145) meq/L Potassium (3.5-5.1) meq/L Creatinine (0.50-1.00) mg/dL Estimated GFR (>89) mL/min POC Glucose (68-110) mg/dl Random Glucose (74-106) mg/dL Calcium (8.5-10.1) mg/dL Prot Corrected Calcium (8.5-10.1) mg/dL AST (15-37) U/L Total Protein (6.4-8.2) g/dL Albumin (3.4-5.0) g/dL Urine Clarity Hazy H (Clear) Ur Leukocyte Esterase Moderate H (Negative) Urine WBC 28 H (0-5) /hpf Urine WBC Clumps Few H (None) Amorphous Sediment Few H (None) /hpf Urine Bacteria Few H (None) /hpf Urine Mucus Few H (Occasional) /lpf 02/26/18 02/26/18 02/26/18 Range/Units 10:50 10:50 10:50 RBC (4.00-5.30) mil/mm3 Hgb (11.6-15.3) gm/dL Hct (35.0-46.0) % MCV (80.0-100.0) fL MCH (27.0-34.0) pg MCHC (32.0-36.0) % RDW (11.6-17.2) % Neut % (Auto) (16.0-70.0) % Band Neuts % (Manual) (0-6) % Lymphocytes % (Manual) (9-44) % Myelocytes % (Man) (0-0) % Platelet Morphology (Normal) Dimorphic RBCs (None) Basophilic Stippling (None) Ovalocytes (None) Keratocytes (None) PT 11.8 H (9.8-11.6) sec ABG pH (7.380-7.420) ABG pCO2 (38-42) mmHg ABG pO2 (61-120) mmHg ABG HCO3 (22-26) mmol/L ABG O2 Content (12.0-20.0) Vol % ABG Base Excess (-2-2) mmol/L Hemoglobin (12.0-16.0) G/DL Sodium (136-145) meq/L Potassium 2.8 L* (3.5-5.1) meq/L Creatinine 2.97 H (0.50-1.00) mg/dL Estimated GFR 15 L (>89) mL/min POC Glucose 131 H (68-110) mg/dl Random Glucose 120 H (74-106) mg/dL Calcium 7.5 L (8.5-10.1) mg/dL Prot Corrected Calcium (8.5-10.1) mg/dL AST 11 L (15-37) U/L Total Protein 5.9 L (6.4-8.2) g/dL Albumin 2.6 L (3.4-5.0) g/dL Urine Clarity (Clear) Ur Leukocyte Esterase (Negative) Urine WBC (0-5) /hpf Urine WBC Clumps (None) Amorphous Sediment (None) /hpf Urine Bacteria (None) /hpf Urine Mucus (Occasional) /lpf 02/26/18 02/26/18 02/27/18 Range/Units 19:17 19:17 07:06 RBC 2.40 L 2.37 L (4.00-5.30) mil/mm3 Hgb 8.3 L 8.2 L (11.6-15.3) gm/dL Hct 26.1 L 25.6 L (35.0-46.0) % MCV 108.7 H 108.1 H (80.0-100.0) fL MCH 34.8 H 34.4 H (27.0-34.0) pg MCHC 31.8 L (32.0-36.0) % RDW 26.3 H 26.8 H (11.6-17.2) % Neut % (Auto) (16.0-70.0) % Band Neuts % (Manual) 19 H (0-6) % Lymphocytes % (Manual) 7 L (9-44) % Myelocytes % (Man) (0-0) % Platelet Morphology (Normal) Dimorphic RBCs Present H (None) Basophilic Stippling Faint H (None) Ovalocytes (None) Keratocytes Occ H (None) PT (9.8-11.6) sec ABG pH (7.380-7.420) ABG pCO2 (38-42) mmHg ABG pO2 (61-120) mmHg ABG HCO3 (22-26) mmol/L ABG O2 Content (12.0-20.0) Vol % ABG Base Excess (-2-2) mmol/L Hemoglobin (12.0-16.0) G/DL Sodium (136-145) meq/L Potassium 3.4 L (3.5-5.1) meq/L Creatinine 2.88 H (0.50-1.00) mg/dL Estimated GFR 16 L (>89) mL/min POC Glucose (68-110) mg/dl Random Glucose 124 H (74-106) mg/dL Calcium 6.8 L* (8.5-10.1) mg/dL Prot Corrected Calcium 7.2 L* (8.5-10.1) mg/dL AST (15-37) U/L Total Protein 6.3 L (6.4-8.2) g/dL Albumin (3.4-5.0) g/dL Urine Clarity (Clear) Ur Leukocyte Esterase (Negative) Urine WBC (0-5) /hpf Urine WBC Clumps (None) Amorphous Sediment (None) /hpf Urine Bacteria (None) /hpf Urine Mucus (Occasional) /lpf 02/27/18 Range/Units 07:06 RBC (4.00-5.30) mil/mm3 Hgb (11.6-15.3) gm/dL Hct (35.0-46.0) % MCV (80.0-100.0) fL MCH (27.0-34.0) pg MCHC (32.0-36.0) % RDW (11.6-17.2) % Neut % (Auto) (16.0-70.0) % Band Neuts % (Manual) (0-6) % Lymphocytes % (Manual) (9-44) % Myelocytes % (Man) (0-0) % Platelet Morphology (Normal) Dimorphic RBCs (None) Basophilic Stippling (None) Ovalocytes (None) Keratocytes (None) PT (9.8-11.6) sec ABG pH (7.380-7.420) ABG pCO2 (38-42) mmHg ABG pO2 (61-120) mmHg ABG HCO3 (22-26) mmol/L ABG O2 Content (12.0-20.0) Vol % ABG Base Excess (-2-2) mmol/L Hemoglobin (12.0-16.0) G/DL Sodium 146 H (136-145) meq/L Potassium 3.4 L (3.5-5.1) meq/L Creatinine 2.39 H (0.50-1.00) mg/dL Estimated GFR 19 L (>89) mL/min POC Glucose (68-110) mg/dl Random Glucose 118 H (74-106) mg/dL Calcium 7.6 L D (8.5-10.1) mg/dL Prot Corrected Calcium (8.5-10.1) mg/dL AST (15-37) U/L Total Protein (6.4-8.2) g/dL Albumin (3.4-5.0) g/dL Urine Clarity (Clear) Ur Leukocyte Esterase (Negative) Urine WBC (0-5) /hpf Urine WBC Clumps (None) Amorphous Sediment (None) /hpf Urine Bacteria (None) /hpf Urine Mucus (Occasional) /lpf Short CBC 02/26/18 02/26/18 02/27/18 Range/Units 10:50 19:17 07:06 WBC 6.6 6.7 5.7 (4.0-11.0) th/mm3 Hgb 8.0 L 8.3 L 8.2 L (11.6-15.3) gm/dL Hct 24.4 L 26.1 L 25.6 L (35.0-46.0) % Plt Count 290 280 235 (150-450) th/mm3 BMP 02/26/18 02/26/18 02/27/18 10:50 19:17 07:06 Sodium 142 142 146 H Potassium 2.8 L* 3.4 L 3.4 L Chloride 100 102 106 Carbon Dioxide 32.0 31.7 28.2 BUN 17 17 16 Creatinine 2.97 H 2.88 H 2.39 H Calcium 7.5 L 6.8 L* 7.6 L D Cardiac Enzymes 02/26/18 Range/Units 10:50 Troponin I 0.03 (0.02-0.05) ng/mL Liver Function 02/26/18 Range/Units 10:50 Total Bilirubin 0.6 (0.2-1.0) mg/dL AST 11 L (15-37) U/L ALT 18 (10-53) U/L Alkaline Phosphatase 59 (45-117) U/L Albumin 2.6 L (3.4-5.0) g/dL Urine 02/26/18 Range/Units 10:45 Urine Color Vickie (Yellw/Straw) Urine Clarity Hazy H (Clear) Urine pH 5.0 (5.0-8.5) Ur Specific [place] 1.013 (1.002-1.035) Urine Protein Negative (Neg-Trace) mg/dL Urine Glucose (UA) Negative (Negative) mg/dL - Imaging Impressions Chest X-Ray 02/26/18 10:15 CONCLUSION: Mild pulmonary vascular congestion. Heart is enlarged. Head CT 02/26/18 10:15 CONCLUSION: 1. 1.1 x 0.8 cm hyperdense mass in the right CP angle which likely reflects a meningioma. This does not have the typical appearance for hemorrhage although hemorrhage cannot be entirely excluded. Comparisons with prior exams if they can be made available would be beneficial in further evaluation. Alternatively, MRI examination with contrast may be obtained for better characterization. . Physical Exam Vital signs: Vital Signs 02/26/18 10:06 02/26/18 10:15 02/26/18 10:25 Temperature 98.5 F Pulse Rate 91 H 93 H 98 H Respiratory Rate 24 24 14 Blood Pressure 74/45 L Pulse Oximetry 86 L 96 02/26/18 10:30 02/26/18 10:32 02/26/18 10:55 Temperature Pulse Rate 87 Respiratory Rate 24 24 Blood Pressure 109/54 L Pulse Oximetry 96 97 97 02/26/18 11:00 02/26/18 11:53 02/26/18 12:15 Temperature Pulse Rate 82 82 85 Respiratory Rate 26 H 26 H 26 H Blood Pressure 93/62 L 102/50 L 78/56 L Pulse Oximetry 98 98 100 02/26/18 12:30 02/26/18 13:30 02/26/18 14:00 Temperature Pulse Rate 80 82 91 H Respiratory Rate 24 24 24 Blood Pressure 84/47 L 94/54 L 113/56 L Pulse Oximetry 100 100 100 02/26/18 15:08 02/26/18 15:27 02/26/18 16:00 Temperature 97.5 F L Pulse Rate 85 78 Respiratory Rate 22 21 18 Blood Pressure 104/68 110/56 L Pulse Oximetry 100 96 02/26/18 20:00 02/26/18 20:50 02/26/18 21:05 Temperature 97.1 F L Pulse Rate 81 82 Respiratory Rate 16 17 Blood Pressure 99/50 L Pulse Oximetry 100 98 02/26/18 23:44 02/27/18 00:00 02/27/18 04:00 Temperature 97.1 F L 97.1 F L Pulse Rate 75 75 85 Respiratory Rate 16 16 Blood Pressure 122/58 L 98/56 L Pulse Oximetry 100 98 02/27/18 08:29 Temperature Pulse Rate 68 Respiratory Rate Blood Pressure Pulse Oximetry 99 Intake & Output 02/26/18 02/27/18 02/27/18 18:59 06:59 18:59 Intake Total 2600 / 2600 2460 / 2460 1000 / 1000 Output Total 200 / 200 Balance 2600 / 2600 2260 / 2260 1000 / 1000 Weight 77.111 kg 77.1 kg Intake: IV 2600 / 2600 2460 / 2460 1000 / 1000 NS Inj 1,000 ML @ 150 mls/hr IV 2000 / 2000 1000 / 1000 1000 / 1000 .CONT .Q6H40M [facility] Rx#:[id number] Calcium Chloride Inj 1 GM In NS 110 / 110 Inj 100 ML @ 110 mls/hr IV.SIG ONCE ONE Rx#:[id number] KCl 10 mEq Premix Inj 10 meq In 300 / 300 100 / 100 100 ml @ 100 mls/hr IV.SIG Q1H [facility] Rx#:[id number] Vancomycin Inj 1,000 MG In NS 250 / 250 250 / 250 Inj 250 ML @ 250 mls/hr IV.SIG Q12H [facility] Rx#:[id number] Output: Urine Amount (Catheter) 200 / 200 Indwelling Urethral Catheter 200 / 200 - Constitutional no acute distress, somnolent - Routine HEENT Exam ENT: Present: mucous membranes moist - Routine Respiratory Exam Present: rhonchi, diminished air movement - Routine Cardiovascular Exam Present: S1, S2 - Routine Abdominal Exam Present: soft, normoactive bowel sounds - Routine Extremities Exam Present: pulses intact - Routine Skin Exam Present: dry, warm - Urinary Catheter Management Straight Cath placed during this visit: yes, but has since been removed by the nurse Reason for continuing: Hourly intake/output Insertion date: 02/27/18 Insertion time: 05:20 Removal date: 02/26/18 Removal time: 10:30 Indwelling Urethral Catheter Cath placed during this visit: no Assessment and Plan - Assessment (1) Aspiration pneumonia Code(s): J69.0 - Pneumonitis due to inhalation of food and vomit Status: Acute Plan: Cont Zosyn, pulmonary consult, swallow eval bronchodilators, oxygen support (2) Acute UTI Code(s): N39.0 - Urinary tract infection, site not specified Status: Acute Plan: Follow sensitivity (3) Hypokalemia Code(s): E87.6 - Hypokalemia Status: Acute Plan: 3.4 today, replace as needed. - Assessment and Plan iv abx pulmonary and ID consult Will get swallow eval Await for urinary sensitivity Patient voices that she had [place] disease as child ACTH pending. Will hold Seroquel for lethargy Cont to monitor
[2018-02-27] MEDS ORDERED: Piperacil/Tazo 3.375 GM Premix 50 ML IV.SIG SCH (11:00)
--- NOTE | 2018-02-27 12:56 | P.CONID ---
History of Present Illness Service: ID Consult date: 02/27/18 Requesting Physician: Woody Don Reason for Consult: pneumonia Primary Care Provider: Woody Don DO Chief Complaint: altered mental status confused History of Present Illness: Pt has advanced dementia and unable to provide meaningful history She was admitted with altered mental status and resp distress CT head w/o contrast was unremarkable except for meningioma CBC notable for prominent bandemia (19-24%) She was initially on O2 Mask and earlier this am was switched to NC O2 It was noted by her PCP that she might have recurrent PNA< however no CXR/CT available in EMR to compare Pt also has abnormal UA and is already growing GNB from urine clx P med hx from the chart 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 HTN PSH: L knee sx cholecystectomy Review of Systems unobtainable due to mental condition (demenia), unobtainable due to mental status (lethargy) PMFSH - History History Provided By: Family Member - Medical History Medical History: Medical History (Last Reviewed 02/27/18 @ 13:01 by Kenia Mcclain MD) Sarbjit's disease Adrenocortical insufficiency Anxiety Atrial fibrillation COPD (chronic obstructive pulmonary disease) Chronic kidney disease Congenital stenosis and stricture of esophagus Constipation Dementia Dysphagia GERD (gastroesophageal reflux disease) Gastritis HTN (hypertension) Hyperlipidemia Hypothyroidism Pneumonia Sleep apnea Surgical history unknown - Family History Family History: Family History (Last Updated 02/27/18 @ 13:02 by Kenia Mcclain MD) Other No pertinent family history - Social History I have reviewed the patient's Social History: Yes - Tobacco History Second Hand Smoke Exposure: No Tobacco Use In Past 30 Days: No Smoking Status: Never smoker - Alcohol History How Often Do You Have a Drink Containing Alcohol: Never - Substance Use History Substance History: No History of Abuse - Travel History Recent Travel in the [place] Within the Last 8 Weeks: No Recent Travel Out of the Country Within the Last 8 Weeks: No - Immunization History Tetanus Immunization: Unable to Assess Hx Influenza Vaccine This Season: No Medications and Allergies Active Medications: Active Medications Acetaminophen (Tylenol) 650 mg PO Q4H PRN PRN Reason: Pain 1-10/Temp elevation Albuterol (Duoneb Neb (Mirian)) 1 ampul NEB BID NEB [facility] Last Admin: 02/27/18 08:28 Dose: 1 ampul Bisacodyl (Dulcolax Supp) 10 mg RECTAL DAILY PRN PRN Reason: If no reults 1 day after MOM Sodium Chloride (Ns Inj) 1,000 mls @ 150 mls/hr IV.CONT .Q6H40M [facility] Last Admin: 02/27/18 08:50 Dose: 125 mls/hr Piperacillin/Tazobactam/Dextrose (Zosyn 3.375 Gm Premix) 50 mls @ 100 mls/hr IV.SIG Q12H [facility] Last Infusion: 02/27/18 12:24 Dose: Infused Nitroglycerin (Nitrostat Sl (Override)) 0.4 mg SL Q5M PRN PRN Reason: Chest Pain Pantoprazole Sodium (Protonix) 20 mg PO DAILY [facility] Last Admin: 02/27/18 11:12 Dose: 20 mg Pharmacy Profile Note ([facility]) 1 each OTHER UNSCH PRN PRN Reason: PHARMACY DOCUMENTATION Quetiapine Fumarate (Seroquel) 25 mg PO [facility] Last Admin: 02/26/18 20:04 Dose: 25 mg Sodium Chloride (Ns Flush) 2 ml IV.FLUSH PRN PRN PRN Reason: FLUSH AFTER USING IV ACCESS Sodium Chloride (Ns Flush) 2 ml IV.FLUSH PRN PRN PRN Reason: FLUSH AFTER USING IV ACCESS Allergies Allergy/AdvReac Type Severity Reaction Status Date / Time No Known Allergies Allergy Unverified 02/26/18 10:10 Home Medications Medication Instructions Recorded Confirmed Type acetaminophen [Tylenol] 650 mg PO Q4H PRN 02/26/18 02/26/18 History amlodipine [Norvasc] 5 mg PO DAILY 02/26/18 02/26/18 History bisacodyl [Dulcolax (bisacodyl)] 10 mg [place] DAILY PRN 02/26/18 02/26/18 History furosemide [Lasix] 20 mg PO DAILY 02/26/18 02/26/18 History ipratropium-albuterol 3 ml INHALATION BID 02/26/18 02/26/18 History magnesium citrate [Citroma] 296 ml PO DAILY PRN 02/26/18 02/26/18 History magnesium hydroxide [Milk Of 30 ml PO HS PRN 02/26/18 02/26/18 History Magnesia Concentrated] mupirocin calcium [Bactroban Nasal] 1 applic INTRANASAL BID 02/26/18 02/26/18 History nitroglycerin 0.4 mg SUBLINGUAL Q5-15M PRN 02/26/18 02/26/18 History omeprazole 20 mg PO DAILY 02/26/18 02/26/18 History quetiapine [Seroquel] 25 mg PO HS 02/26/18 02/26/18 History sodium phosphates [Enema 118 ml [place] DAILY PRN 02/26/18 02/26/18 History Disposable] Exam Vital signs: Vital Signs 02/26/18 13:30 02/26/18 14:00 02/26/18 15:08 Temperature Pulse Rate 82 91 H 85 Respiratory Rate 24 24 22 Blood Pressure 94/54 L 113/56 L 104/68 Pulse Oximetry 100 100 100 02/26/18 15:27 02/26/18 16:00 02/26/18 20:00 Temperature 97.5 F L 97.1 F L Pulse Rate 78 81 Respiratory Rate 21 18 16 Blood Pressure 110/56 L 99/50 L Pulse Oximetry 96 100 02/26/18 20:50 02/26/18 21:05 02/26/18 23:44 Temperature Pulse Rate 82 75 Respiratory Rate 17 Blood Pressure Pulse Oximetry 98 02/27/18 00:00 02/27/18 04:00 02/27/18 08:29 Temperature 97.1 F L 97.1 F L Pulse Rate 75 85 68 Respiratory Rate 16 16 Blood Pressure 122/58 L 98/56 L Pulse Oximetry 100 98 99 Intake & Output 02/26/18 02/27/18 02/27/18 18:59 06:59 18:59 Intake Total 2600 / 2600 2460 / 2460 1050 / 1050 Output Total 200 / 200 Balance 2600 / 2600 2260 / 2260 1050 / 1050 Weight 77.111 kg 77.1 kg Intake: IV 2600 / 2600 2460 / 2460 1050 / 1050 NS Inj 1,000 ML @ 150 mls/hr IV 2000 / 2000 1000 / 1000 1000 / 1000 .CONT .Q6H40M [facility] Rx#:[id number] Calcium Chloride Inj 1 GM In NS 110 / 110 Inj 100 ML @ 110 mls/hr IV.SIG ONCE ONE Rx#:[id number] Zosyn 3.375 GM Premix 50 ML @ 50 / 50 100 mls/hr IV.SIG Q12H [facility] Rx#: [id number] KCl 10 mEq Premix Inj 10 meq In 300 / 300 100 / 100 100 ml @ 100 mls/hr IV.SIG Q1H [facility] Rx#:[id number] Vancomycin Inj 1,000 MG In NS 250 / 250 250 / 250 Inj 250 ML @ 250 mls/hr IV.SIG Q12H [facility] Rx#:[id number] Output: Urine Amount (Catheter) 200 / 200 Indwelling Urethral Catheter 200 / 200 - Constitutional mild distress (resp), obese - Routine HEENT Exam Head: Present: normocephalic, atraumatic Eye: Present: EOMI, PERRL ENT: Present: mucous membranes dry, oropharynx clear - Routine Neck Exam Present: supple, full ROM. Absent: JVD - Routine Respiratory Exam Present: accessory muscle use (+ prominent abd breathing), decreased breath sounds, prolonged expiratory phase, wheezes (end expiratory wheezing) - Routine Cardiovascular Exam Present: RRR, S1, S2. Absent: murmur, gallop, rubs - Routine Abdominal Exam Present: soft, normoactive bowel sounds, distended. Absent: tenderness, guarding, organomegaly, mass - Routine Extremities Exam Present: edema (1+). Absent: cyanosis, clubbing - Routine Skin Exam Present: intact. Absent: cyanosis, erythema, rash - Routine Neurological Exam Present: altered mental status (lethargic, arousable), moving all extremities, hearing grossly intact, normal speech - Routine Psychiatric Exam Present: unable to assess Results - Labs CBC & Chem 7: 02/27/18 07:06 02/27/18 07:06 Labs: Laboratory Results - last 24 hr 02/26/18 02/26/18 02/26/18 10:45 19:17 19:17 WBC 6.7 RBC 2.40 L Hgb 8.3 L Hct 26.1 L MCV 108.7 H MCH 34.8 H MCHC 32.0 RDW 26.3 H Plt Count 280 MPV 9.9 Prelim Diff (Auto) Manual diff required WBC Differential Manual diff final Seg Neuts % (Manual) 66 Band Neuts % (Manual) 19 H Lymphocytes % (Manual) 7 L Monocytes % (Manual) 2 Eosinophils % (Manual) 4 Basophils % (Manual) 1 Metamyelocytes % (Man) 1 Abs Neuts (Manual) 5.8 Differential Comment . Platelet Estimate Normal Platelet Morphology Dimorphic RBCs Present H Basophilic Stippling Faint H Keratocytes Occ H Sodium 142 Potassium 3.4 L Chloride 102 Carbon Dioxide 31.7 Anion Gap 8 BUN 17 Creatinine 2.88 H Estimated GFR 16 L Random Glucose 124 H Calcium 6.8 L* Prot Corrected Calcium 7.2 L* Total Protein 6.3 L Urine Color Vickie Urine Clarity Hazy H Urine pH 5.0 Ur Specific [place] 1.013 Urine Protein Negative Urine Glucose (UA) Negative Urine Ketones Negative Urine Occult Blood Negative Urine Nitrate Negative Urine Bilirubin Negative Urine Urobilinogen Less than 2 Ur Leukocyte Esterase Moderate H Urine RBC 2 Urine WBC 28 H Urine WBC Clumps Few H Ur Squamous Epith Cells 9 Ur Transition Epith Cell 4 Amorphous Sediment Few H Urine Bacteria Few H Hyaline Casts 19 Urine Mucus Few H Micro UA Comment Cath-culture ind Urine Culture Comments Cath-cult indicated 02/27/18 02/27/18 07:06 07:06 WBC 5.7 RBC 2.37 L Hgb 8.2 L Hct 25.6 L MCV 108.1 H MCH 34.4 H MCHC 31.8 L RDW 26.8 H Plt Count 235 MPV 9.7 Prelim Diff (Auto) WBC Differential Seg Neuts % (Manual) Band Neuts % (Manual) Lymphocytes % (Manual) Monocytes % (Manual) Eosinophils % (Manual) Basophils % (Manual) Metamyelocytes % (Man) Abs Neuts (Manual) Differential Comment Platelet Estimate Platelet Morphology Dimorphic RBCs Basophilic Stippling Keratocytes Sodium 146 H Potassium 3.4 L Chloride 106 Carbon Dioxide 28.2 Anion Gap 12 BUN 16 Creatinine 2.39 H Estimated GFR 19 L Random Glucose 118 H Calcium 7.6 L D Prot Corrected Calcium Total Protein Urine Color Urine Clarity Urine pH Ur Specific Dennis Urine Protein Urine Glucose (UA) Urine Ketones Urine Occult Blood Urine Nitrate Urine Bilirubin Urine Urobilinogen Ur Leukocyte Esterase Urine RBC Urine WBC Urine WBC Clumps Ur Squamous Epith Cells Ur Transition Epith Cell Amorphous Sediment Urine Bacteria Hyaline Casts Urine Mucus Micro UA Comment Urine Culture Comments - Imaging Chest X-Ray 02/26/18 10:15 CONCLUSION: Mild pulmonary vascular congestion. Heart is enlarged. Head CT 02/26/18 10:15 CONCLUSION: 1. 1.1 x 0.8 cm hyperdense mass in the right CP angle which likely reflects a meningioma. This does not have the typical appearance for hemorrhage although hemorrhage cannot be entirely excluded. Comparisons with prior exams if they can be made available would be beneficial in further evaluation. Alternatively, MRI examination with contrast may be obtained for better characterization. . Assessment and Plan - Plan resp distress (whhez, abd breathing) ?sepsis (mental status change, bandemia) Likely PNA ? aspiration UTI, GNB add levaquine: that will cover both UTI and atypical PNA CT chest dw RN
[2018-02-27] MEDS ORDERED: Levofloxacin 500 mg Premix Inj 500 MG/100 ML PIGGYBACK IV.SIG SCH (15:00)
--- NOTE | 2018-02-27 17:46 | CT ---
EXAM DATE: 02/27/2018 5:02 PM EDT AGE/SEX: 82 years / Female INDICATIONS: Shortness of breath. CLINICAL DATA: This is the patient's initial encounter. Patient reports that signs and symptoms have been present for 1 day and indicates a pain score of Nonresponsive. MEDICAL/SURGICAL HISTORY: Chronic obstructive pulmonary disease. Hypertension. Cardiovascular dis ease. None. RADIATION DOSE: 17.27 CTDI (mGy) COMPARISON: No prior exams available for comparison. TECHNIQUE: Multiple contiguous axial images were obtained through the chest without contrast. Image s were obtained in suspended respiration using multiple row detector helical technique. Using automa ghada exposure control and adjustment of the mA and/or kV according to patient size, radiation dose was kept as low as reasonably achievable to obtain optimal diagnostic quality images. DICOM format imag e data is available electronically for review and comparison. FINDINGS: Lungs: The lungs are symmetrically aerated. Mild generalized interstitial prominence is noted. No i nfiltrates or nodular densities are seen. Mediastinum: Heart is mildly enlarged. There is no evidence of mass or lymphadenopathy. Pleurae: No evidence of focal thickening or pleural effusion. Axillae: Unremarkable. Bony Structures: Old compression deformities are seen in the mid to upper thoracic spine. Miscellaneous: The examination was extended to include the upper abdomen, and both adrenal glands ar e normal in size and configuration. CONCLUSION: 1. Chronic lung changes without evidence of consolidating airspace disease or significant edema. 2. Mild cardiomegaly 3. Old compression fractures of the thoracic spine. Electronically signed by: Tin Montaño MD 02/27/2018 5:45 PM EDT
[2018-02-27] MEDS: Piperacil/Tazo 2.25 GM Premix 50 ML IV.SIG SCH ×2 (17:55→23:33)
--- NOTE | 2018-02-27 18:16 | P.PNPL ---
Subjective Interval history: 82 YOWF with Dementia, Pn Mental status much improved Alert, awake, follows commands Weaned to [place] Sister and niece at BS Physical Exam Vital signs: Vital Signs 02/26/18 20:00 02/26/18 20:50 02/26/18 21:05 Temperature 97.1 F L Pulse Rate 81 82 Respiratory Rate 16 17 Blood Pressure 99/50 L Pulse Oximetry 100 98 02/26/18 23:44 02/27/18 00:00 02/27/18 04:00 Temperature 97.1 F L 97.1 F L Pulse Rate 75 75 85 Respiratory Rate 16 16 Blood Pressure 122/58 L 98/56 L Pulse Oximetry 100 98 02/27/18 08:00 02/27/18 08:29 02/27/18 12:00 Temperature 97.2 F L 97.1 F L Pulse Rate 80 68 80 Respiratory Rate 16 14 Blood Pressure 104/50 L 103/52 L Pulse Oximetry 100 99 100 02/27/18 12:44 02/27/18 16:00 Temperature 97.9 F Pulse Rate 114 H Respiratory Rate 18 Blood Pressure 94/50 L Pulse Oximetry 100 96 Intake & Output 02/26/18 02/27/18 02/27/18 18:59 06:59 18:59 Intake Total 2600 / 2600 2460 / 2460 2150 / 2150 Output Total 200 / 200 150 / 150 Balance 2600 / 2600 2260 / 2260 1999 Weight 77.111 kg 77.1 kg Intake: IV 2600 / 2600 2460 / 2460 2150 / 2150 NS Inj 1,000 ML @ 150 mls/hr IV 1999 1000 / 1000 1999 .CONT .Q6H40M [facility] Rx#:[id number] Calcium Chloride Inj 1 GM In NS 110 / 110 Inj 100 ML @ 110 mls/hr IV.SIG ONCE ONE Rx#:[id number] Levaquin 500 mg Premix Inj 500 100 / 100 mg In 100 ml @ 100 mls/hr IV. SIG Q48H [facility] Rx#:[id number] Zosyn 3.375 GM Premix 50 ML @ 50 / 50 100 mls/hr IV.SIG Q12H [facility] Rx#: [id number] KCl 10 mEq Premix Inj 10 meq In 300 / 300 100 / 100 100 ml @ 100 mls/hr IV.SIG Q1H [facility] Rx#:[id number] Vancomycin Inj 1,000 MG In NS 250 / 250 250 / 250 Inj 250 ML @ 250 mls/hr IV.SIG Q12H [facility] Rx#:[id number] Output: Urine 150 / 150 Urine Amount (Catheter) 200 / 200 Indwelling Urethral Catheter 200 / 200 Other: # Bowel Movements 0 GENERAL: Elderly Wf, NAD SKIN: Warm and dry. HEAD: Normocephalic. EYES: No scleral icterus. No injection or drainage. NECK: Supple, trachea midline. No JVD or lymphadenopathy. CARDIOVASCULAR: Regular rate and rhythm without murmurs, gallops, or rubs. RESPIRATORY: Breath sounds equal bilaterally. No accessory muscle use. GASTROINTESTINAL: Abdomen soft, non-tender, nondistended. MUSCULOSKELETAL: No cyanosis, or edema. BACK: Nontender without obvious deformity. No CVA tenderness. - Urinary Catheter Management Straight Cath placed during this visit: yes, but has since been removed by the nurse Reason for continuing: Hourly intake/output Insertion date: 02/27/18 Insertion time: 05:20 Removal date: 02/26/18 Removal time: 10:30 Indwelling Urethral Catheter Cath placed during this visit: no Reason for continuing: Acute urinary retention Assessment and Plan - Plan IMPRESSION: 1. Respiratory failure. 2. Pneumonia, possible aspiration. 3. Dementia. 4. Anemia. 5. Renal insufficiency. 6. Hypokalemia. PLAN: Cont Abx Levaquin added , ID following Supplement 02 Check Cultures Aerosol nebs DW Family at BS
[2018-02-27] MEDS: Acetaminophen 325 MG Tablet PO PRN (22:23)
[2018-02-28] MEDS: Piperacil/Tazo 2.25 GM Premix 50 ML IV.SIG SCH ×3 (05:27→17:02)
[2018-02-28] MEDS: Sod Chloride 0.9% Inj 1,000 ML IV.SIG SCH ×3 (06:15→15:39)
[2018-02-28] MEDS: Hydrocortisone 10 MG Tablet PO SCH ×2 (08:34→20:31)
[2018-02-28] MEDS: Pantoprazole Sodium 20 MG DR Tablet PO SCH (08:34)
[2018-02-28 09:31] LABS: Hematocrit 21.6 % (35.0-46.0); Mean Corpuscular HGB Conc 32.3 % (32.0-36.0); Mean Corpuscular Hemoglobin 34.8 pg (27.0-34.0); Mean Corpuscular Volume 107.6 fL (80.0-100.0); Mean Platelet Volume 9.8 fL (7.0-11.0); Platelet Count 283 th/mm3 (150-450); Red Cell Distribution Width 26.1 % (11.6-17.2); White Blood Count 5.8 th/mm3 (4.0-11.0)
--- NOTE | 2018-02-28 09:49 | P.PNFP ---
Subjective Interval history: Awake and alert this am B/P low improving with fluids Afebrile Results - Labs Result diagrams: 02/27/18 07:06 02/27/18 07:06 Abnormal lab results 02/26/18 Range/Units 10:45 Urine Clarity Hazy H (Clear) Ur Leukocyte Esterase Moderate H (Negative) Urine WBC 28 H (0-5) /hpf Urine WBC Clumps Few H (None) Amorphous Sediment Few H (None) /hpf Urine Bacteria Few H (None) /hpf Urine Mucus Few H (Occasional) /lpf Urine 02/26/18 Range/Units 10:45 Urine Color Vickie (Yellw/Straw) Urine Clarity Hazy H (Clear) Urine pH 5.0 (5.0-8.5) Ur Specific [place] 1.013 (1.002-1.035) Urine Protein Negative (Neg-Trace) mg/dL Urine Glucose (UA) Negative (Negative) mg/dL - Imaging Impressions Chest CT 02/27/18 13:34 CONCLUSION: 1. Chronic lung changes without evidence of consolidating airspace disease or significant edema. 2. Mild cardiomegaly 3. Old compression fractures of the thoracic spine. Physical Exam Vital signs: Vital Signs 02/27/18 12:00 02/27/18 12:44 02/27/18 16:00 Temperature 97.1 F L 97.9 F Pulse Rate 80 114 H Respiratory Rate 14 18 Blood Pressure 103/52 L 94/50 L Pulse Oximetry 100 100 96 02/27/18 20:00 02/27/18 20:49 02/27/18 22:53 Temperature 97.8 F Pulse Rate 80 87 Respiratory Rate 18 20 18 Blood Pressure 103/53 L Pulse Oximetry 96 96 02/27/18 23:44 02/28/18 00:00 02/28/18 04:00 Temperature 98.2 F 98.1 F Pulse Rate 87 113 H 83 Respiratory Rate 20 18 Blood Pressure 98/54 L 80/53 L Pulse Oximetry 98 100 02/28/18 08:00 02/28/18 08:54 02/28/18 08:55 Temperature 97.7 F Pulse Rate 82 82 Respiratory Rate 16 14 Blood Pressure 95/51 L Pulse Oximetry 98 97 Intake & Output 02/27/18 02/28/18 02/28/18 18:59 06:59 18:59 Intake Total 2450 / 2450 430 / 430 Output Total 200 / 200 150 / 150 Balance 2250 / 2250 280 / 280 Weight 74.2 kg Intake: IV 2200 / 2200 430 / 430 NS Inj 1,000 ML @ KVO IV.CONT . 1999 / 1999 330 / 330 Q0M [facility] Rx#:[id number] Levaquin 500 mg Premix Inj 500 100 / 100 mg In 100 ml @ 100 mls/hr IV. SIG Q48H [facility] Rx#:[id number] Zosyn 2.25 GM Premix 50 ML @ 50 / 50 100 / 100 100 mls/hr IV.SIG Q6H [facility] Rx#: [id number] Zosyn 3.375 GM Premix 50 ML @ 50 / 50 100 mls/hr IV.SIG Q12H [facility] Rx#: [id number] Oral 250 / 250 Output: Urine 150 / 150 150 / 150 Urine Amount (Catheter) 50 / 50 Indwelling Urethral Catheter 50 / 50 Other: Date of Last Bowel Movement 02/27/18 # Bowel Movements 0 - Constitutional no acute distress - Routine HEENT Exam ENT: Present: mucous membranes moist - Routine Neck Exam Present: supple - Routine Respiratory Exam Present: decreased breath sounds - Routine Cardiovascular Exam Present: S1, S2 - Routine Abdominal Exam Present: soft - Routine Extremities Exam Present: edema - Routine Skin Exam Present: intact, dry, warm - Routine Neurological Exam Present: alert - Routine Psychiatric Exam Present: cooperative - Urinary Catheter Management Straight Cath placed during this visit: yes, but has since been removed by the nurse Reason for continuing: Hourly intake/output Insertion date: 02/27/18 Insertion time: 05:20 Removal date: 02/26/18 Removal time: 10:30 Indwelling Urethral Catheter Cath placed during this visit: yes Reason for continuing: Acute urinary retention Insertion date: 02/27/18 Insertion time: 05:00 Assessment and Plan - Assessment (1) Aspiration pneumonia Code(s): J69.0 - Pneumonitis due to inhalation of food and vomit Status: Acute Plan: Cont Zosyn, Levaquin pulmonary consult bronchodilators, oxygen support (2) Acute UTI Code(s): N39.0 - Urinary tract infection, site not specified Status: Acute Plan: Urine grew Klebsiella pneumoniae sensitive to Zosyn. cont zosyn, ID following, cont to follow rec's (3) Hypokalemia Code(s): E87.6 - Hypokalemia Status: Acute Plan: 3.4 today, replace as needed. - Assessment and Plan 02/27/18 iiv abx pulmonary and ID consult Will get swallow eval Await for urinary sensitivity Patient voices that she had [place] disease as child ACTH pending. Will hold Seroquel for lethargy Cont to monitor 02/28/18- low urine out put reported on IVF 100/hr. B/P low throughout night 80/ 53, 51/51 this am. Renal consulted will order Ultrasound HX of Sarbjit disease, cortisol level 5.7, cortef 10mg bid ordered. Family voices she should be on levothyroxine, records reviewed from [facility], was not in in past facility. Will get Thyroid level. Hx chf, monitor fluid closely. no sign of fluid overload, will get cardiac on board if needed. Pna- on Levaquin, Zosyn, bronchodilators, oxygen support. Pulmonary following, Blood cultures negative x 24h.
[2018-02-28 10:08] LABS: Anion Gap 9 meq/L (5-15); Blood Urea Nitrogen 14 mg/dL (7-18); Calcium 7.3 mg/dL (8.5-10.1); Chloride 106 meq/L (98-107); Glomerular Filtration Rate 23 mL/min (>89); Glucose,Random 106 mg/dL (74-106); Potassium 3.2 meq/L (3.5-5.1); Sodium 142 meq/L (136-145)
[2018-02-28 10:33] LABS: Free T4 (Free Thyroxine) 0.15 ng/dL (0.76-1.46); Total Protein 5.6 g/dL (6.4-8.2)
--- NOTE | 2018-02-28 11:43 | US ---
EXAM DATE: 02/28/2018 12:00 AM EDT AGE/SEX: 82 years / Female INDICATIONS: Low urine output. CLINICAL DATA: This is the patient's initial encounter. Patient reports that signs and symptoms have been present for 1 day and indicates a pain score of 0/10. MEDICAL/SURGICAL HISTORY: Chronic obstructive pulmonary disease. Gastroesophageal reflux disea se. Hypothyroidism. Sarbjit's disease. Adrenocortical insufficiency. Afib. CKD. Congenital stenosis /stricture of esophagus. HTN. Hyperlipidemia. Sleep apnea. . Surgical history unknown. COMPARISON: [facility], CT CHEST W/O CONTRAST, 02/27/2018. . MEASUREMENTS: Right Kidney:__9.4 x 3.9 x 4.6 cm Left Kidney:__9.0 x 4.4 x 4.5 cm FINDINGS: Right Kidney: Increased echotexture. Diffuse cortical thinning. Uniformly anechoic cystic lesion in t he inferior pole measuring 2.3 x 2.4 x 2.5 cm. Left Kidney: Increased echotexture. Diffuse cortical thinning. No mass or hydronephrosis. Bladder: Mccrary catheter is present. Bladder decompressed. Other: None. CONCLUSION: 1. Small echogenic kidneys consistent with medical renal disease. 2. 2.5 cm cyst in the inferior pole of the right kidney. Electronically signed by: Anthony De La Paz MD 02/28/2018 11:42 AM EDT
[2018-02-28] MEDS: Acetaminophen 325 MG Tablet PO PRN (16:11)
--- NOTE | 2018-02-28 17:33 | P.PNPL ---
Subjective Interval history: 82 YOWF with Dementia, Pn Mental status much improved Alert, awake, follows commands Weaned to [place] Appetite improved Physical Exam Vital signs: Vital Signs 02/27/18 20:00 02/27/18 20:49 02/27/18 22:53 Temperature 97.8 F Pulse Rate 80 87 Respiratory Rate 18 20 18 Blood Pressure 103/53 L Pulse Oximetry 96 96 02/27/18 23:44 02/28/18 00:00 02/28/18 04:00 Temperature 98.2 F 98.1 F Pulse Rate 87 113 H 83 Respiratory Rate 20 18 Blood Pressure 98/54 L 80/53 L Pulse Oximetry 98 100 02/28/18 08:00 02/28/18 08:54 02/28/18 08:55 Temperature 97.7 F Pulse Rate 82 82 Respiratory Rate 16 14 Blood Pressure 95/51 L Pulse Oximetry 98 97 02/28/18 12:00 02/28/18 16:00 Temperature 97.9 F 98.0 F Pulse Rate 79 95 H Respiratory Rate 16 16 Blood Pressure 114/56 L 99/50 L Pulse Oximetry 98 99 Intake & Output 02/27/18 02/28/18 02/28/18 18:59 06:59 18:59 Intake Total 2450 / 2450 430 / 430 1100 / 1100 Output Total 200 / 200 150 / 150 250 / 250 Balance 2250 / 2250 280 / 280 850 / 850 Weight 74.2 kg Intake: IV 2200 / 2200 430 / 430 1100 / 1100 NS Inj 1,000 ML @ KVO IV.CONT . 1999 / 1999 330 / 330 Q0M [facility] Rx#:[id number] Levaquin 500 mg Premix Inj 500 100 / 100 mg In 100 ml @ 100 mls/hr IV. SIG Q48H [facility] Rx#:[id number] Zosyn 2.25 GM Premix 50 ML @ 50 / 50 100 / 100 100 / 100 100 mls/hr IV.SIG Q6H [facility] Rx#: [id number] Zosyn 3.375 GM Premix 50 ML @ 50 / 50 100 mls/hr IV.SIG Q12H [facility] Rx#: [id number] NS Inj 1,000 ML @ 100 mls/hr IV 1000 / 1000 .SIG .Q10H [facility] Rx#:[id number] Oral 250 / 250 Output: Urine 150 / 150 150 / 150 Urine Amount (Catheter) 50 / 50 250 / 250 Indwelling Urethral Catheter 50 / 50 250 / 250 Other: Date of Last Bowel Movement 02/27/18 # Bowel Movements 0 GENERAL: Elderly WF, NAD SKIN: Warm and dry. HEAD: Normocephalic. EYES: No scleral icterus. No injection or drainage. NECK: Supple, trachea midline. No JVD or lymphadenopathy. CARDIOVASCULAR: Regular rate and rhythm without murmurs, gallops, or rubs. RESPIRATORY: Breath sounds equal bilaterally. No accessory muscle use. GASTROINTESTINAL: Abdomen soft, non-tender, nondistended. MUSCULOSKELETAL: No cyanosis, or edema. BACK: Nontender without obvious deformity. No CVA tenderness. - Urinary Catheter Management Straight Cath placed during this visit: yes, but has since been removed by the nurse Reason for continuing: Hourly intake/output Insertion date: 02/27/18 Insertion time: 05:20 Removal date: 02/26/18 Removal time: 10:30 Indwelling Urethral Catheter Cath placed during this visit: yes Reason for continuing: Acute urinary retention Insertion date: 02/27/18 Insertion time: 05:00 Assessment and Plan - Plan IMPRESSION: 1. Respiratory failure. 2. Pneumonia, possible aspiration. 3. Dementia. 4. Anemia. 5. Renal insufficiency. 6. Hypokalemia. PLAN: Cont Abx Levaquin added , ID following Supplement 02 Aerosol nebs
--- NOTE | 2018-02-28 18:13 | P.CONNP ---
<IgnacioVirginia sprague - Last Filed: 02/28/18 17:50> History of Present Illness Service: Nephrology Consult date: 02/28/18 Requesting Physician: Woody Don Reason for Consult: Acute kidney injury Primary Care Provider: Woody Don DO Chief Complaint: altered mental status confused History of Present Illness: Patient is a very pleasant 82-year-old female with a past medical history of COPD, CHF, Ouachita disease, recurrent pneumonia, and dementia. She presented to the emergency department from care home with lethargy barely responsive to painful stimulus. Patient was found to be hypotensive with systolic blood pressure in the 70's. Nephrology is consulted for Acute kidney injury with a creatinine of 2.07 on day of consult. On admission creatinine at 2.97 with improvement with IVF administration. Renal ultrasound: Small echogenic kidneys consistent with medical renal disease, 2.5 cm cyst in the inferior pole of the right kidney. Baseline creatinine noted to be 1.08 in July 2017. [facility] - History History Provided By: Family Member - Medical History Medical History: Medical History (Last Reviewed 02/27/18 @ 13:01 by Kenia Mcclain MD) Sarbjit's disease Adrenocortical insufficiency Anxiety Atrial fibrillation COPD (chronic obstructive pulmonary disease) Chronic kidney disease Congenital stenosis and stricture of esophagus Constipation Dementia Dysphagia GERD (gastroesophageal reflux disease) Gastritis HTN (hypertension) Hyperlipidemia Hypothyroidism Pneumonia Sleep apnea Surgical history unknown - Family History Family History: Family History (Last Updated 02/27/18 @ 13:02 by Kenia Mcclain MD) Other No pertinent family history - Tobacco History Second Hand Smoke Exposure: No Tobacco Use In Past 30 Days: No Smoking Status: Never smoker - Alcohol History How Often Do You Have a Drink Containing Alcohol: Never - Substance Use History Substance History: No History of Abuse - Travel History Recent Travel in the [place] Within the Last 8 Weeks: No Recent Travel Out of the Country Within the Last 8 Weeks: No - Immunization History Tetanus Immunization: Unable to Assess Hx Influenza Vaccine This Season: No Medications and Allergies Allergies Allergy/AdvReac Type Severity Reaction Status Date / Time No Known Allergies Allergy Unverified 02/26/18 10:10 Home Medications Medication Instructions Recorded Confirmed Type acetaminophen [Tylenol] 650 mg PO Q4H PRN 02/26/18 02/26/18 History amlodipine [Norvasc] 5 mg PO DAILY 02/26/18 02/26/18 History bisacodyl [Dulcolax (bisacodyl)] 10 mg NV DAILY PRN 02/26/18 02/26/18 History furosemide [Lasix] 20 mg PO DAILY 02/26/18 02/26/18 History ipratropium-albuterol 3 ml INHALATION BID 02/26/18 02/26/18 History magnesium citrate [Citroma] 296 ml PO DAILY PRN 02/26/18 02/26/18 History magnesium hydroxide [Milk Of 30 ml PO HS PRN 02/26/18 02/26/18 History Magnesia Concentrated] mupirocin calcium [Bactroban Nasal] 1 applic INTRANASAL BID 02/26/18 02/26/18 History nitroglycerin 0.4 mg SUBLINGUAL Q5-15M PRN 02/26/18 02/26/18 History omeprazole 20 mg PO DAILY 02/26/18 02/26/18 History quetiapine [Seroquel] 25 mg PO HS 02/26/18 02/26/18 History sodium phosphates [Enema 118 ml NV DAILY PRN 02/26/18 02/26/18 History Disposable] hydroxyurea 500 mg PO DAILY 02/28/18 02/28/18 History levothyroxine 150 mcg PO DAILY 02/28/18 02/28/18 History warfarin [Coumadin] 1 dose PO 02/28/18 History Active Medications: Active Medications Acetaminophen (Tylenol) 650 mg PO Q4H PRN PRN Reason: Pain 1-10/Temp elevation Last Admin: 02/28/18 16:11 Dose: 650 mg Albuterol (Duoneb Neb (Mirian)) 1 ampul NEB BID NEB [facility] Last Admin: 02/28/18 08:54 Dose: 1 ampul Bisacodyl (Dulcolax Supp) 10 mg RECTAL DAILY PRN PRN Reason: If no reults 1 day after MOM Calcium Carbonate (Tums Chew) 1,000 mg PO DAILY@1100 [facility] Last Admin: 02/28/18 11:40 Dose: 1,000 mg Hydrocortisone Acetate (Cortef) 10 mg PO BID [facility] Last Admin: 02/28/18 08:34 Dose: 10 mg Levofloxacin/Dextrose (Levaquin 500 Mg Premix Inj) 500 mg in 100 mls @ 100 mls/ hr IV.SIG Q48H [facility] Last Infusion: 02/27/18 17:54 Dose: Infused Piperacillin/Tazobactam/Dextrose (Zosyn 2.25 Gm Premix) 50 mls @ 100 mls/hr IV.SIG Q6H [facility] Last Infusion: 02/28/18 17:22 Dose: Infused Sodium Chloride (Ns Inj) 1,000 mls @ 100 mls/hr IV.SIG .Q10H [facility] Last Admin: 02/28/18 15:39 Dose: Not Given Nitroglycerin (Nitrostat Sl (Override)) 0.4 mg SL Q5M PRN PRN Reason: Chest Pain Pantoprazole Sodium (Protonix) 20 mg PO DAILY [facility] Last Admin: 02/28/18 08:34 Dose: 20 mg Pharmacy Profile Note (Custom Consult Pharmacy) 1 each OTHER UNSCH PRN PRN Reason: PHARMACY DOCUMENTATION Sodium Chloride (Ns Flush) 2 ml IV.FLUSH PRN PRN PRN Reason: FLUSH AFTER USING IV ACCESS Sodium Chloride (Ns Flush) 2 ml IV.FLUSH PRN PRN PRN Reason: FLUSH AFTER USING IV ACCESS Exam Vital signs: Vital Signs 02/27/18 20:00 02/27/18 20:49 02/27/18 22:53 Temperature 97.8 F Pulse Rate 80 87 Respiratory Rate 18 20 18 Blood Pressure 103/53 L Pulse Oximetry 96 96 02/27/18 23:44 02/28/18 00:00 02/28/18 04:00 Temperature 98.2 F 98.1 F Pulse Rate 87 113 H 83 Respiratory Rate 20 18 Blood Pressure 98/54 L 80/53 L Pulse Oximetry 98 100 02/28/18 08:00 02/28/18 08:54 02/28/18 08:55 Temperature 97.7 F Pulse Rate 82 82 Respiratory Rate 16 14 Blood Pressure 95/51 L Pulse Oximetry 98 97 02/28/18 12:00 02/28/18 16:00 Temperature 97.9 F 98.0 F Pulse Rate 79 95 H Respiratory Rate 16 16 Blood Pressure 114/56 L 99/50 L Pulse Oximetry 98 99 Intake & Output 02/27/18 02/28/18 02/28/18 18:59 06:59 18:59 Intake Total 2450 / 2450 430 / 430 1100 / 1100 Output Total 200 / 200 150 / 150 250 / 250 Balance 2250 / 2250 280 / 280 850 / 850 Weight 74.2 kg Intake: IV 2200 / 2200 430 / 430 1100 / 1100 NS Inj 1,000 ML @ KVO IV.CONT . 1999 330 / 330 Q0M [facility] Rx#:[id number] Levaquin 500 mg Premix Inj 500 100 / 100 mg In 100 ml @ 100 mls/hr IV. SIG Q48H [facility] Rx#:[id number] Zosyn 2.25 GM Premix 50 ML @ 50 / 50 100 / 100 100 / 100 100 mls/hr IV.SIG Q6H [facility] Rx#: [id number] Zosyn 3.375 GM Premix 50 ML @ 50 / 50 100 mls/hr IV.SIG Q12H [facility] Rx#: [id number] NS Inj 1,000 ML @ 100 mls/hr IV 1000 / 1000 .SIG .Q10H [facility] Rx#:[id number] Oral 250 / 250 Output: Urine 150 / 150 150 / 150 Urine Amount (Catheter) 50 / 50 250 / 250 Indwelling Urethral Catheter 50 / 50 250 / 250 Other: Date of Last Bowel Movement 02/27/18 # Bowel Movements 0 Narrative: GENERAL: Alert and oriented to self SKIN: Warm and dry. HEAD: Normocephalic. EYES: No scleral icterus. No injection or drainage. NECK: Supple, trachea midline. No JVD or lymphadenopathy. CARDIOVASCULAR: Regular rate and rhythm without murmurs, gallops, or rubs. RESPIRATORY: Breath sounds equal bilaterally. No accessory muscle use. GASTROINTESTINAL: Abdomen soft, non-tender, nondistended. MUSCULOSKELETAL: No cyanosis, or edema. BACK: Nontender without obvious deformity. No CVA tenderness. Results - Lab Results 02/28/18 08:05 02/28/18 08:05 Most recent lab results ABG pH 7.47 (7.380-7.420) H 02/26/18 10:15 ABG pCO2 46 mmHg (38-42) H 02/26/18 10:15 ABG pO2 272 mmHg (61-120) H 02/26/18 10:15 ABG HCO3 33 mmol/L (22-26) H 02/26/18 10:15 Calcium 7.3 mg/dL (8.5-10.1) L* 02/28/18 08:05 - Image Kidney/bladder ultrasound: pending Assessment and Plan - Assessment (1) Acute kidney injury Code(s): N17.9 - Acute kidney failure, unspecified Status: Acute Plan: Acute kidney injury with a creatinine of 2.07 on day of consult. On admission creatinine at 2.97 Acute kidney injury possible prerenal vs ATN from poor intake, sepsis, or from hypotension Renal ultrasound: Small echogenic kidneys consistent with medical renal disease , 2.5 cm cyst in the inferior pole of the right kidney. Creatinine at 2.07, oliguric with urinary output of 300 ml/24 hours. Plan Continue IVF's, oral fluids encouraged Maintain MAP for 65 mmhg, started on cortef for possible adrenal insufficiency, AM cortisol at 5.7 Hypocalcemia, on oral calcium replacement Avoid nephrotoxins including IV contrast and NSAIDS Will monitor urinary output and BMP (2) Anemia Code(s): D64.9 - Anemia, unspecified Status: Acute Plan: HGB at 7.0 Will order Iron studies (3) Acute UTI Code(s): N39.0 - Urinary tract infection, site not specified Status: Acute Plan: On antibiotics, renal dose as appropriate <John Bartholomew Q - Last Filed: 03/01/18 18:17> History of Present Illness Primary Care Provider: Woody Don DO [facility] - Medical History Medical History: Medical History (Last Reviewed 02/27/18 @ 13:01 by Kenia Mcclain MD) Ouachita's disease Adrenocortical insufficiency Anxiety Atrial fibrillation COPD (chronic obstructive pulmonary disease) Chronic kidney disease Congenital stenosis and stricture of esophagus Constipation Dementia Dysphagia GERD (gastroesophageal reflux disease) Gastritis HTN (hypertension) Hyperlipidemia Hypothyroidism Pneumonia Sleep apnea Surgical history unknown - Family History Family History: Family History (Last Updated 02/27/18 @ 13:02 by Kenia Mcclain MD) Other No pertinent family history Medications and Allergies Active Medications: Active Medications Acetaminophen (Tylenol) 650 mg PO Q4H PRN PRN Reason: Pain 1-10/Temp elevation Last Admin: 02/28/18 16:11 Dose: 650 mg Albuterol (Duoneb Neb ([facility]ian)) 1 ampul NEB BID NEB [facility] Last Admin: 03/01/18 07:51 Dose: 1 ampul Bisacodyl (Dulcolax Supp) 10 mg RECTAL DAILY PRN PRN Reason: If no reults 1 day after MOM Calcium Carbonate (Tums Chew) 1,000 mg PO DAILY@1100 [facility] Last Admin: 03/01/18 10:07 Dose: 1,000 mg Hydrocortisone Acetate (Cortef) 10 mg PO BID [facility] Last Admin: 03/01/18 10:03 Dose: 10 mg Sodium Chloride (Ns Inj) 1,000 mls @ 100 mls/hr IV.SIG .Q10H [facility] Last Admin: 03/01/18 15:29 Dose: 100 mls/hr Ceftriaxone Sodium 1,000 mg/ (Sodium Chloride) 100 mls @ 200 mls/hr IV.SIG Q24H [facility] Last Infusion: 02/28/18 20:06 Dose: Infused Levothyroxine Sodium (Synthroid) 100 mcg PO DAILY@0600 [facility] Last Admin: 03/01/18 05:25 Dose: 100 mcg Nitroglycerin (Nitrostat Sl (Override)) 0.4 mg SL Q5M PRN PRN Reason: Chest Pain Pantoprazole Sodium (Protonix) 20 mg PO DAILY [facility] Last Admin: 03/01/18 10:04 Dose: 20 mg Pharmacy Profile Note (Custom Consult Pharmacy) 1 each OTHER UNSCH PRN PRN Reason: PHARMACY DOCUMENTATION Sodium Chloride (Ns Flush) 2 ml IV.FLUSH PRN PRN PRN Reason: FLUSH AFTER USING IV ACCESS Sodium Chloride (Ns Flush) 2 ml IV.FLUSH PRN PRN PRN Reason: FLUSH AFTER USING IV ACCESS Exam Vital signs: Vital Signs 02/28/18 19:30 02/28/18 20:00 02/28/18 20:27 Temperature 97.2 F L Pulse Rate 105 H 79 74 Respiratory Rate 17 16 Blood Pressure 108/50 L Pulse Oximetry 100 99 02/28/18 23:57 03/01/18 00:00 03/01/18 01:27 Temperature 98.3 F 98.0 F Pulse Rate 70 79 73 Respiratory Rate 18 20 Blood Pressure 100/54 L 104/57 L Pulse Oximetry 98 99 03/01/18 01:42 03/01/18 03:45 03/01/18 04:00 Temperature 97.9 F 97.9 F 97.9 F Pulse Rate 75 72 71 Respiratory Rate 20 18 18 Blood Pressure 94/52 L 105/56 L 105/56 L Pulse Oximetry 100 100 03/01/18 07:52 03/01/18 08:00 03/01/18 12:00 Temperature 98.0 F 98.2 F Pulse Rate 73 74 79 Respiratory Rate 16 16 16 Blood Pressure 130/62 116/65 Pulse Oximetry 99 96 98 Intake & Output 02/28/18 03/01/18 03/01/18 18:59 06:59 18:59 Intake Total 1100 / 1100 1900 / 1900 1000 / 1000 Output Total 250 / 250 575 / 575 800 / 800 Balance 850 / 850 1325 / 1325 200 / 200 Weight 74.4 kg Intake: IV 1100 / 1100 1100 / 1100 Zosyn 2.25 GM Premix 50 ML @ 100 / 100 100 mls/hr IV.SIG Q6H [facility] Rx#: [id number] NS Inj 1,000 ML @ 100 mls/hr IV 1000 / 1000 1000 / 1000 .SIG .Q10H [facility] Rx#:[id number] Rocephin Inj 1,000 MG In NS Inj 100 / 100 100 ML @ 200 mls/hr IV.SIG Q24H [facility] Rx#:[id number] Oral 400 / 400 1000 / 1000 Intake (Blood Product) Amt 400 / 400 Rbc As-3 Leukoreduced Unit 400 / 400 [id number] Output: Urine 575 / 575 800 / 800 Urine Amount (Catheter) 250 / 250 Indwelling Urethral Catheter 250 / 250 Other: # Bowel Movements 0 Results - Lab Results 03/01/18 06:22 03/01/18 06:22 Most recent lab results ABG pH 7.47 (7.380-7.420) H 02/26/18 10:15 ABG pCO2 46 mmHg (38-42) H 02/26/18 10:15 ABG pO2 272 mmHg (61-120) H 02/26/18 10:15 ABG HCO3 33 mmol/L (22-26) H 02/26/18 10:15 Calcium 6.9 mg/dL (8.5-10.1) L* 03/01/18 06:22 Phosphorus 3.1 mg/dL (2.5-4.9) 03/01/18 06:22 Assessment and Plan - Assessment (1) Acute kidney injury Code(s): N17.9 - Acute kidney failure, unspecified Status: Acute Plan: Patient seen and examined, agree with above. Has JOSE DANIEL, possibly related to ATN, or pre renal. (2) Anemia Code(s): D64.9 - Anemia, unspecified Status: Acute (3) Acute UTI Code(s): N39.0 - Urinary tract infection, site not specified Status: Acute <John Bartholomew Q - Last Filed: 03/01/18 18:17> (2) Anemia Qualifiers: Anemia type: iron deficiency
--- NOTE | 2018-02-28 18:30 | P.PNID ---
Subjective Remarks: pt seen ealier today - delaeyed note pt states she feels better stable afebrile vitals thought with a trend of low BP CT chest showed no PNA urine clx with dillon S Proteus Antibiotics: zosyn levaquin Allergies/Adverse Reactions: Allergies No Known Allergies Allergy (Unverified 02/26/18 10:10) Objective Vital Signs 02/27/18 20:00 02/27/18 20:49 02/27/18 22:53 Temperature 97.8 F Pulse Rate 80 87 Respiratory Rate 18 20 18 Blood Pressure 103/53 L Pulse Oximetry 96 96 02/27/18 23:44 02/28/18 00:00 02/28/18 04:00 Temperature 98.2 F 98.1 F Pulse Rate 87 113 H 83 Respiratory Rate 20 18 Blood Pressure 98/54 L 80/53 L Pulse Oximetry 98 100 02/28/18 08:00 02/28/18 08:54 02/28/18 08:55 Temperature 97.7 F Pulse Rate 82 82 Respiratory Rate 16 14 Blood Pressure 95/51 L Pulse Oximetry 98 97 02/28/18 12:00 02/28/18 16:00 Temperature 97.9 F 98.0 F Pulse Rate 79 95 H Respiratory Rate 16 16 Blood Pressure 114/56 L 99/50 L Pulse Oximetry 98 99 Intake & Output 02/27/18 02/28/18 02/28/18 18:59 06:59 18:59 Intake Total 2450 / 2450 430 / 430 1100 / 1100 Output Total 200 / 200 150 / 150 250 / 250 Balance 2250 / 2250 280 / 280 850 / 850 Weight 74.2 kg Intake: IV 2200 / 2200 430 / 430 1100 / 1100 NS Inj 1,000 ML @ KVO IV.CONT . 1999 / 1999 330 / 330 Q0M [facility] Rx#:[id number] Levaquin 500 mg Premix Inj 500 100 / 100 mg In 100 ml @ 100 mls/hr IV. SIG Q48H [facility] Rx#:[id number] Zosyn 2.25 GM Premix 50 ML @ 50 / 50 100 / 100 100 / 100 100 mls/hr IV.SIG Q6H [facility] Rx#: [id number] Zosyn 3.375 GM Premix 50 ML @ 50 / 50 100 mls/hr IV.SIG Q12H [facility] Rx#: [id number] NS Inj 1,000 ML @ 100 mls/hr IV 1000 / 1000 .SIG .Q10H [facility] Rx#:[id number] Oral 250 / 250 Output: Urine 150 / 150 150 / 150 Urine Amount (Catheter) 50 / 50 250 / 250 Indwelling Urethral Catheter 50 / 50 250 / 250 Other: Date of Last Bowel Movement 02/27/18 # Bowel Movements 0 02/26/18 10:45 Blood - Line Aerobic Blood Culture - Preliminary No growth in 2 days 02/26/18 10:45 Blood - Line Anaerobic Blood Culture - Preliminary No growth in 2 days 02/26/18 10:50 Blood - Line Aerobic Blood Culture - Preliminary No growth in 2 days 02/26/18 10:50 Blood - Line Anaerobic Blood Culture - Preliminary No growth in 2 days 02/26/18 10:45 Catheterized Urine Urine Culture - Final Klebsiella pneumoniae Lab - Hematology Results 02/26/18 02/27/18 02/28/18 19:17 07:06 08:05 WBC 6.7 5.7 5.8 RBC 2.40 L 2.37 L 2.00 L Hgb 8.3 L 8.2 L 7.0 L Hct 26.1 L 25.6 L 21.6 L MCV 108.7 H 108.1 H 107.6 H MCH 34.8 H 34.4 H 34.8 H MCHC 32.0 31.8 L 32.3 RDW 26.3 H 26.8 H 26.1 H Plt Count 280 235 283 MPV 9.9 9.7 9.8 Prelim Diff (Auto) Manual diff required WBC Differential Manual diff final Seg Neuts % (Manual) 66 Band Neuts % (Manual) 19 H Lymphocytes % (Manual) 7 L Monocytes % (Manual) 2 Eosinophils % (Manual) 4 Basophils % (Manual) 1 Metamyelocytes % (Man) 1 Abs Neuts (Manual) 5.8 Differential Comment . Platelet Estimate Normal Platelet Morphology Dimorphic RBCs Present H Basophilic Stippling Faint H Keratocytes Occ H Lab - Chemistry Results 02/26/18 02/27/18 02/28/18 19:17 07:06 06:20 Sodium 142 146 H Potassium 3.4 L 3.4 L Chloride 102 106 Carbon Dioxide 31.7 28.2 Anion Gap 8 12 BUN 17 16 Creatinine 2.88 H 2.39 H Estimated GFR 16 L 19 L Random Glucose 124 H 118 H Calcium 6.8 L* 7.6 L D Prot Corrected Calcium 7.2 L* Total Protein 6.3 L TSH Free T4 Free T3 Cortisol 5.7 02/28/18 08:05 Sodium 142 Potassium 3.2 L Chloride 106 Carbon Dioxide 27.0 Anion Gap 9 BUN 14 Creatinine 2.07 H Estimated GFR 23 L Random Glucose 106 Calcium 7.3 L* Prot Corrected Calcium 8.1 L D Total Protein 5.6 L D TSH 21.300 H Free T4 0.15 L Free T3 Less than 0.50 L Cortisol Imaging: ITS Impressions Chest X-Ray 02/26/18 10:15 CONCLUSION: Mild pulmonary vascular congestion. Heart is enlarged. Head CT 02/26/18 10:15 CONCLUSION: 1. 1.1 x 0.8 cm hyperdense mass in the right CP angle which likely reflects a meningioma. This does not have the typical appearance for hemorrhage although hemorrhage cannot be entirely excluded. Comparisons with prior exams if they can be made available would be beneficial in further evaluation. Alternatively, MRI examination with contrast may be obtained for better characterization. . Chest CT 02/27/18 13:34 CONCLUSION: 1. Chronic lung changes without evidence of consolidating airspace disease or significant edema. 2. Mild cardiomegaly 3. Old compression fractures of the thoracic spine. Abdomen/Bladder Ultrasound 02/28/18 00:00 CONCLUSION: 1. Small echogenic kidneys consistent with medical renal disease. 2. 2.5 cm cyst in the inferior pole of the right kidney. Physical Exam: GENERAL: NAD SKIN: Warm and dry. No rash HEAD: Atraumatic. Normocephalic. EYES: Pupils equal and round. No scleral icterus. No injection or drainage. ENT: No nasal bleeding or discharge. Mucous membranes pink and moist. NECK: Trachea midline. No JVD. CARDIOVASCULAR: Regular rate and rhythm. + systolic ejection murmur RESPIRATORY: No accessory muscle use. Clear to auscultation. Breath sounds equal bilaterally. GASTROINTESTINAL: Abdomen soft, non-tender, nondistended. Hepatic and splenic margins not palpable. MUSCULOSKELETAL: Extremities without clubbing, cyanosis, + trace edema. No obvious deformities. NEUROLOGICAL: Awake and alert. Confused PSYCHIATRIC: unable to assess Assessment and Plan - Plan resp distress (whhez, abd breathing) ?sepsis (mental status change, bandemia) Likely PNA no e/o PNA on CT chest UTI, P. mirabilis dillon S dc levaquine, zosyn CFTX for UTI
[2018-02-28] MEDS ORDERED: Epoetin Alfa Inj 20,000 UNIT/ML Vial SQ ONE (22:00)
[2018-02-28] MEDS ORDERED: Sodium Chlor 0.9% Inj 250 ML IV.SIG SCH (22:00)
[2018-02-28 23:02] LABS: Folate 9.6 ng/mL (3.1-17.5)
--- NOTE | 2018-02-28 23:49 | MB ---
cc: Jairo Zamorano MD DATE: 02/28/2018 REASON FOR CONSULTATION: Anemia. PATIENT PROFILE: The patient is an 82-year-old female. She is . She lives in an assisted living facility. She has 1 daughter who resides in [place]. The patient was born in [place]. She has never smoked. There has been minimal alcohol intake in the past. 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 She has been taking hydroxyurea since 2003. This has been successful in controlling her platelet count. It is my understanding that she is taking 500 mg of hydroxyurea 3-4 times a week. I last saw her on 07/14/2017. At that time, she had hemoglobin of 10, white count 8400, and platelets 458,000. BUN was 16 and creatinine 1.0. Arrangements were made for return visit in 6 months with a CBC and platelet count in 3 months. She has significant other medical problems. She has hypothyroidism and according to my records is supposed to be taking levothyroxine 100 mcg a day. It is not clear to me if she is taking this dose, although she states that she is. She has hypertension, gastroesophageal reflux, and early dementia. She has had a DVT involving both lower extremities. First episode in 1999 and second in 2008. She has been on Coumadin. She has an IVC filter. The patient is now hospitalized due to lethargy, weakness, and a change in mental status. She was brought to the emergency room on 02/26/2018. When I look at her home medicines, I do not see Synthroid and suspect that she was not taking the Synthroid. In addition, I suspect that she may not be taking the hydroxyurea. At the time of admission, her hemoglobin was 8, white count 6600, and platelets 290,000. Today, hemoglobin is 7, white count 5800, platelets 280,000, MCV is 107. I believe she likewise was not taking Coumadin. Her INR was 1.2. She was also found to be in renal failure. Her creatinine on admission was 2.97, currently 2.0. TSH 21, again suggesting that she probably did not take her thyroid. She is found to have a urinary tract infection. Her most recent CBC is dated 02/28/2018 with a hemoglobin of 7, white count 5800, and platelets 283,000. Her urine culture is growing Klebsiella. She denies any bleeding, but she is not a good historian. PAST SURGICAL HISTORY: 1. 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 2. Cataract surgery, left eye. 3. IVC filter. 4. Left knee surgery. 5. Cholecystectomy. PAST MEDICAL HISTORY: 1. 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 2. Pituitary tumor at age 17, treated with radiation at [facility]. 3. Adrenal insufficiency requiring hydrocortisone replacement. She sees Dr. Abad, who is an production quality analyst. 4. History of pneumonia. 5. Deep venous thrombosis in lower extremities. CURRENT MEDICATIONS: 1. Albuterol. 2. Rocephin. 3. Cortef 10 b.i.d. 4. Nitrostat. 5. Protonix. ALLERGIES: NO KNOWN ALLERGIES. FAMILY HISTORY: Both parents are . The patient has a sister who I believe is alive. REVIEW OF SYSTEMS: The patient is not precise about giving her review of systems. She really does not complain of anything other than wanting to return home. She does not know why she is here. PHYSICAL EXAMINATION: GENERAL: An elderly female. She recognizes me, and speech is fluent, but her memory for details is very poor. VITAL SIGNS: Blood pressure is 100/50, respiratory rate is 18, pulse 80, afebrile. HEENT: Head is normocephalic. Sclerae and conjunctivae normal. Oropharynx unremarkable. There is no cervical, supraclavicular, axillary, or inguinal adenopathy. BREASTS: Atrophic without masses. HEART: Regular rhythm. No murmur or gallop. LUNGS: Clear. ABDOMEN: Obese. No hepatosplenomegaly. EXTREMITIES: Trace edema. MUSCULOSKELETAL: No bone pain. NEUROLOGIC: Speech fluent. Short-term memory poor. No focal weakness. ASSESSMENT: The patient presents with significant anemia. Last time I saw her, she had a hemoglobin of 10. She has a history of a myeloproliferative disorder, either primary thrombocytosis or possibly polycythemia. The amount of hydroxyurea that she has been taking is minimal and would probably not impact the hemoglobin and hematocrit significantly. I suspect that the reasons for worsening of the anemia are the followin. Renal failure. Her creatinine normally runs 1.0. 2. Recent urinary tract infection with Klebsiella. 3. Hypothyroidism. Her TSH is elevated. I doubt that she is taking her Synthroid. 4. myeloproliferative disorder RECOMMENDATIONS: 1. Would recommend transfusing 1 unit of packed cells. 2. Procrit 20,000 units subcutaneous x1. will help with anemia due to renal failure 3. Iron studies have been ordered as well as B12 and folate. 4. I believe that with the resolution of her urinary tract infection and correction of her anemia, that the hemoglobin will rise. 5. At this point, I see no reason to reintroduce hydroxyurea as her platelet count shows no significant elevation, and it certainly can be allowed to rise. I have written orders for blood transfusion, B12, folate, Procrit, and Synthroid 100 mcg, which she should have been taking but apparently was not. MD CONSTANTINE Proctor/william , 09:38 PM , 09:55 PM MTDD
[2018-03-01] MEDS: Levothyroxine 100 MCG Tablet PO SCH (05:25)
[2018-03-01] MEDS: Sod Chloride 0.9% Inj 1,000 ML IV.SIG SCH ×4 (05:26→23:52)
[2018-03-01 07:17] LABS: Baso # (Auto) 0.1 th/mm3 (0.0-0.2); Baso % (Auto) 1.8 % (0.0-2.0); Eos # (Auto) 0.1 th/mm3 (0.0-0.4); Eos % (Auto) 2.7 % (0.0-4.0); Hematocrit 24.3 % (35.0-46.0); Hemoglobin 7.6 gm/dL (11.6-15.3); Lymph # (Auto) 0.8 th/mm3 (1.0-4.8); Mean Corpuscular HGB Conc 31.3 % (32.0-36.0); Mean Corpuscular Hemoglobin 34.8 pg (27.0-34.0); Mean Platelet Volume 9.3 fL (7.0-11.0); Mono # (Auto) 0.1 th/mm3 (0.0-0.9); Mono % (Auto) 2.3 % (0.0-8.0); Neut # (Auto) 3.8 th/mm3 (1.8-7.7); Neut % (Auto) 76.2 % (16.0-70.0); Platelet Count 299 th/mm3 (150-450); Red Blood Count 2.19 mil/mm3 (4.00-5.30)
[2018-03-01 07:49] LABS: % Iron Saturation 81.5 % (20-50); Albumin 2.4 g/dL (3.4-5.0); Phosphorus 3.1 mg/dL (2.5-4.9); Potassium 3.5 meq/L (3.5-5.1)
[2018-03-01 08:03] LABS: Eosinophils 4 % (0-4); Lymphocytes 8 % (9-44); Monocytes 1 % (0-8)
[2018-03-01 08:04] LABS: Dimorphic RBC Present; Spherocytes Occ
[2018-03-01 08:05] LABS: Ovalocytes 1+; Platelet Estimate Normal (Normal); Platelet Morphology Normal (Normal); Tear Drop Cells 1+
[2018-03-01 08:52] LABS: Calcium 6.9 mg/dL (8.5-10.1)
--- NOTE | 2018-03-01 09:05 | P.PNFP ---
Subjective Interval history: alert this am, no apparent distress voices she is feeling good Denies CP, SOB Results - Labs Result diagrams: 03/01/18 06:22 03/01/18 06:22 Abnormal lab results 02/28/18 02/28/18 02/28/18 Range/Units 08:05 08:05 21:43 RBC 2.00 L (4.00-5.30) mil/mm3 Hgb 7.0 L (11.6-15.3) gm/dL Hct 21.6 L (35.0-46.0) % MCV 107.6 H (80.0-100.0) fL MCH 34.8 H (27.0-34.0) pg MCHC (32.0-36.0) % RDW 26.1 H (11.6-17.2) % Neut % (Auto) (16.0-70.0) % Lymph # (Auto) (1.0-4.8) th/mm3 Seg Neuts % (Manual) (16-70) % Band Neuts % (Manual) (0-6) % Lymphocytes % (Manual) (9-44) % Dimorphic RBCs (None) Spherocytes (None) Tear Drop Cells (None) Ovalocytes (None) Potassium 3.2 L (3.5-5.1) meq/L Chloride (98-107) meq/L Creatinine 2.07 H (0.50-1.00) mg/dL Estimated GFR 23 L (>89) mL/min Random Glucose (74-106) mg/dL Calcium 7.3 L* (8.5-10.1) mg/dL Prot Corrected Calcium 8.1 L D (8.5-10.1) mg/dL TIBC (250-450) mcg/dL % Saturation (20-50) % Ferritin (8-252) ng/mL Total Protein 5.6 L D (6.4-8.2) g/dL Albumin (3.4-5.0) g/dL Vitamin B12 (193-986) pg/mL TSH 21.300 H (0.358-3.740) uIU/mL Free T4 0.15 L (0.76-1.46) ng/dL Free T3 Less than 0.50 L (2.18-3.98) pg/mL MTS Gel Crossmatch See Detail 02/28/18 03/01/18 03/01/18 Range/Units 21:43 06:22 06:22 RBC 2.19 L (4.00-5.30) mil/mm3 Hgb 7.6 L (11.6-15.3) gm/dL Hct 24.3 L (35.0-46.0) % MCV 111.0 H (80.0-100.0) fL MCH 34.8 H (27.0-34.0) pg MCHC 31.3 L (32.0-36.0) % RDW 26.0 H (11.6-17.2) % Neut % (Auto) 76.2 H (16.0-70.0) % Lymph # (Auto) 0.8 L (1.0-4.8) th/mm3 Seg Neuts % (Manual) 71 H (16-70) % Band Neuts % (Manual) 14 H (0-6) % Lymphocytes % (Manual) 8 L (9-44) % Dimorphic RBCs Present H (None) Spherocytes Occ H (None) Tear Drop Cells 1+ H (None) Ovalocytes 1+ H (None) Potassium (3.5-5.1) meq/L Chloride 109 H (98-107) meq/L Creatinine 2.00 H (0.50-1.00) mg/dL Estimated GFR 24 L (>89) mL/min Random Glucose 111 H (74-106) mg/dL Calcium 6.9 L* (8.5-10.1) mg/dL Prot Corrected Calcium (8.5-10.1) mg/dL TIBC 158 L (250-450) mcg/dL % Saturation 81.5 H (20-50) % Ferritin 600 H (8-252) ng/mL Total Protein (6.4-8.2) g/dL Albumin 2.4 L (3.4-5.0) g/dL Vitamin B12 1025 H (193-986) pg/mL TSH (0.358-3.740) uIU/mL Free T4 (0.76-1.46) ng/dL Free T3 (2.18-3.98) pg/mL MTS Gel Crossmatch Short CBC 02/28/18 03/01/18 Range/Units 08:05 06:22 WBC 5.8 5.0 (4.0-11.0) th/mm3 Hgb 7.0 L 7.6 L (11.6-15.3) gm/dL Hct 21.6 L 24.3 L (35.0-46.0) % Plt Count 283 299 (150-450) th/mm3 BMP 02/28/18 03/01/18 08:05 06:22 Sodium 142 143 Potassium 3.2 L 3.5 Chloride 106 109 H Carbon Dioxide 27.0 26.0 BUN 14 12 Creatinine 2.07 H 2.00 H Calcium 7.3 L* 6.9 L* Liver Function 03/01/18 Range/Units 06:22 Albumin 2.4 L (3.4-5.0) g/dL - Imaging Impressions Abdomen/Bladder Ultrasound 02/28/18 00:00 CONCLUSION: 1. Small echogenic kidneys consistent with medical renal disease. 2. 2.5 cm cyst in the inferior pole of the right kidney. Physical Exam Vital signs: Vital Signs 02/28/18 12:00 02/28/18 16:00 02/28/18 19:30 Temperature 97.9 F 98.0 F Pulse Rate 79 95 H 105 H Respiratory Rate 16 16 Blood Pressure 114/56 L 99/50 L Pulse Oximetry 98 99 02/28/18 20:00 02/28/18 20:27 02/28/18 23:57 Temperature 97.2 F L Pulse Rate 79 74 70 Respiratory Rate 17 16 Blood Pressure 108/50 L Pulse Oximetry 100 99 03/01/18 00:00 03/01/18 01:27 03/01/18 01:42 Temperature 98.3 F 98.0 F 97.9 F Pulse Rate 79 73 75 Respiratory Rate 18 20 20 Blood Pressure 100/54 L 104/57 L 94/52 L Pulse Oximetry 98 99 03/01/18 03:45 03/01/18 04:00 03/01/18 07:52 Temperature 97.9 F 97.9 F Pulse Rate 72 71 73 Respiratory Rate 18 18 16 Blood Pressure 105/56 L 105/56 L Pulse Oximetry 100 100 99 03/01/18 08:00 Temperature 98.0 F Pulse Rate 74 Respiratory Rate 16 Blood Pressure 130/62 Pulse Oximetry 96 Intake & Output 02/28/18 03/01/18 03/01/18 18:59 06:59 18:59 Intake Total 1100 / 1100 1900 / 1900 Output Total 250 / 250 575 / 575 Balance 850 / 850 1325 / 1325 Weight 74.4 kg Intake: IV 1100 / 1100 1100 / 1100 Zosyn 2.25 GM Premix 50 ML @ 100 / 100 100 mls/hr IV.SIG Q6H FUAD Rx#: [id number] NS Inj 1,000 ML @ 100 mls/hr IV 1000 / 1000 1000 / 1000 .SIG .Q10H FUAD Rx#:[id number] Rocephin Inj 1,000 MG In NS Inj 100 / 100 100 ML @ 200 mls/hr IV.SIG Q24H FUAD Rx#:[id number] Oral 400 / 400 Intake (Blood Product) Amt 400 / 400 Rbc As-3 Leukoreduced Unit 400 / 400 [id number] Output: Urine 575 / 575 Urine Amount (Catheter) 250 / 250 Indwelling Urethral Catheter 250 / 250 - Constitutional no acute distress - Routine HEENT Exam Eye: Present: PERRL ENT: Present: mucous membranes moist - Routine Neck Exam Present: supple - Routine Respiratory Exam Present: CTA bilaterally - Routine Cardiovascular Exam Present: S1, S2 - Routine Abdominal Exam Present: soft, normoactive bowel sounds - Routine Extremities Exam Present: pulses intact Comments: trace b/l le edema - Routine Skin Exam Present: dry, warm - Routine Neurological Exam Present: alert - Routine Psychiatric Exam Present: cooperative - Urinary Catheter Management Straight Cath placed during this visit: yes, but has since been removed by the nurse Reason for continuing: Hourly intake/output Insertion date: 02/27/18 Insertion time: 05:20 Removal date: 02/26/18 Removal time: 10:30 Indwelling Urethral Catheter Cath placed during this visit: yes Reason for continuing: Acute urinary retention Insertion date: 02/27/18 Insertion time: 05:00 Assessment and Plan - Assessment (1) Aspiration pneumonia Code(s): J69.0 - Pneumonitis due to inhalation of food and vomit Status: Acute Plan: Cont Zosyn, Levaquin pulmonary consult bronchodilators, oxygen support (2) Acute UTI Code(s): N39.0 - Urinary tract infection, site not specified Status: Acute Plan: Urine grew Klebsiella pneumoniae sensitive to Zosyn. cont zosyn, ID following, cont to follow rec's (3) Hypokalemia Code(s): E87.6 - Hypokalemia Status: Acute Plan: 3.4 today, replace as needed. (4) Anemia Code(s): D64.9 - Anemia, unspecified Status: Acute Plan: Seen by Dr Zamorano, known to patient for thrombocythemia Transfused 1 unit, Procrit started, B12, folate. cont to monitor - Assessment and Plan 02/27/18 iiv abx pulmonary and ID consult Will get swallow eval Await for urinary sensitivity Patient voices that she had [place] disease as child ACTH pending. Will hold Seroquel for lethargy Cont to monitor 02/28/18- low urine out put reported on IVF 100/hr. B/P low throughout night 80/ 53, 51/51 this am. Renal consulted will order Ultrasound HX of [place] disease, cortisol level 5.7, cortef 10mg bid ordered. Family voices she should be on levothyroxine, records reviewed from detention, was not in in past facility. Will get Thyroid level. Hx chf, monitor fluid closely. no sign of fluid overload, will get cardiac on board if needed. Pna- on Levaquin, Zosyn, bronchodilators, oxygen support. Pulmonary following, Blood cultures negative x 24h.
[2018-03-01] MEDS: Hydrocortisone 10 MG Tablet PO SCH ×2 (10:03→21:43)
[2018-03-01] MEDS: Pantoprazole Sodium 20 MG DR Tablet PO SCH (10:04)
[2018-03-01 10:27] LABS: Reticulocyte Percent 1.8 % (0.4-3.0)
--- NOTE | 2018-03-01 13:58 | P.PNNP ---
Subjective Interval history: Mental status has improved. Creatinine is stable at 2.0 and urinary output improving. Denies any shortness of breath, chest pain, nausea, or vomiting. <Virginia Rubio - Last Filed: 03/01/18 13:51> Physical Exam Vital signs: Vital Signs 02/28/18 16:00 02/28/18 19:30 02/28/18 20:00 Temperature 98.0 F 97.2 F L Pulse Rate 95 H 105 H 79 Respiratory Rate 16 17 Blood Pressure 99/50 L 108/50 L Pulse Oximetry 99 100 02/28/18 20:27 02/28/18 23:57 03/01/18 00:00 Temperature 98.3 F Pulse Rate 74 70 79 Respiratory Rate 16 18 Blood Pressure 100/54 L Pulse Oximetry 99 98 03/01/18 01:27 03/01/18 01:42 03/01/18 03:45 Temperature 98.0 F 97.9 F 97.9 F Pulse Rate 73 75 72 Respiratory Rate 20 20 18 Blood Pressure 104/57 L 94/52 L 105/56 L Pulse Oximetry 99 100 03/01/18 04:00 03/01/18 07:52 03/01/18 08:00 Temperature 97.9 F 98.0 F Pulse Rate 71 73 74 Respiratory Rate 18 16 16 Blood Pressure 105/56 L 130/62 Pulse Oximetry 100 99 96 03/01/18 12:00 Temperature 98.2 F Pulse Rate 79 Respiratory Rate 16 Blood Pressure 116/65 Pulse Oximetry 98 Intake & Output 02/28/18 03/01/18 03/01/18 18:59 06:59 18:59 Intake Total 1100 / 1100 1900 / 1900 Output Total 250 / 250 575 / 575 Balance 850 / 850 1325 / 1325 Weight 74.4 kg Intake: IV 1100 / 1100 1100 / 1100 Zosyn 2.25 GM Premix 50 ML @ 100 / 100 100 mls/hr IV.SIG Q6H FUAD Rx#: [id number] NS Inj 1,000 ML @ 100 mls/hr IV 1000 / 1000 1000 / 1000 .SIG .Q10H FUAD Rx#:[id number] Rocephin Inj 1,000 MG In NS Inj 100 / 100 100 ML @ 200 mls/hr IV.SIG Q24H FUAD Rx#:[id number] Oral 400 / 400 Intake (Blood Product) Amt 400 / 400 Rbc As-3 Leukoreduced Unit 400 / 400 [id number] Output: Urine 575 / 575 Urine Amount (Catheter) 250 / 250 Indwelling Urethral Catheter 250 / 250 Narrative: GENERAL: Alert and oriented to self SKIN: Warm and dry. HEAD: Normocephalic. EYES: No scleral icterus. No injection or drainage. NECK: Supple, trachea midline. No JVD or lymphadenopathy. CARDIOVASCULAR: Regular rate and rhythm without murmurs, gallops, or rubs. RESPIRATORY: Breath sounds equal bilaterally. No accessory muscle use. GASTROINTESTINAL: Abdomen soft, non-tender, nondistended. MUSCULOSKELETAL: No cyanosis, or edema. BACK: Nontender without obvious deformity. No CVA tenderness. - Urinary Catheter Management Straight Cath placed during this visit: yes, but has since been removed by the nurse Reason for continuing: Hourly intake/output Insertion date: 02/27/18 Insertion time: 05:20 Removal date: 02/26/18 Removal time: 10:30 Indwelling Urethral Catheter Cath placed during this visit: yes Reason for continuing: Acute urinary retention Insertion date: 02/27/18 Insertion time: 05:00 <Virginia Rubio - Last Filed: 03/01/18 13:51> Vital signs: Vital Signs 02/28/18 19:30 02/28/18 20:00 02/28/18 20:27 Temperature 97.2 F L Pulse Rate 105 H 79 74 Respiratory Rate 17 16 Blood Pressure 108/50 L Pulse Oximetry 100 99 02/28/18 23:57 03/01/18 00:00 03/01/18 01:27 Temperature 98.3 F 98.0 F Pulse Rate 70 79 73 Respiratory Rate 18 20 Blood Pressure 100/54 L 104/57 L Pulse Oximetry 98 99 03/01/18 01:42 03/01/18 03:45 03/01/18 04:00 Temperature 97.9 F 97.9 F 97.9 F Pulse Rate 75 72 71 Respiratory Rate 20 18 18 Blood Pressure 94/52 L 105/56 L 105/56 L Pulse Oximetry 100 100 03/01/18 07:52 03/01/18 08:00 03/01/18 12:00 Temperature 98.0 F 98.2 F Pulse Rate 73 74 79 Respiratory Rate 16 16 16 Blood Pressure 130/62 116/65 Pulse Oximetry 99 96 98 Intake & Output 02/28/18 03/01/18 03/01/18 18:59 06:59 18:59 Intake Total 1100 / 1100 1900 / 1900 1000 / 1000 Output Total 250 / 250 575 / 575 800 / 800 Balance 850 / 850 1325 / 1325 200 / 200 Weight 74.4 kg Intake: IV 1100 / 1100 1100 / 1100 Zosyn 2.25 GM Premix 50 ML @ 100 / 100 100 mls/hr IV.SIG Q6H FUAD Rx#: [id number] NS Inj 1,000 ML @ 100 mls/hr IV 1000 / 1000 1000 / 1000 .SIG .Q10H FUAD Rx#:[id number] Rocephin Inj 1,000 MG In NS Inj 100 / 100 100 ML @ 200 mls/hr IV.SIG Q24H FUAD Rx#:[id number] Oral 400 / 400 1000 / 1000 Intake (Blood Product) Amt 400 / 400 Rbc As-3 Leukoreduced Unit 400 / 400 [id number] Output: Urine 575 / 575 800 / 800 Urine Amount (Catheter) 250 / 250 Indwelling Urethral Catheter 250 / 250 Other: # Bowel Movements 0 - Urinary Catheter Management Straight Cath placed during this visit: no Indwelling Urethral Catheter Cath placed during this visit: no <Ana Lilia Bartholomew - Last Filed: 03/01/18 18:26> Assessment and Plan - Assessment (1) Acute kidney injury Code(s): N17.9 - Acute kidney failure, unspecified Status: Acute Plan: Acute kidney injury with a creatinine of 2.07 on day of consult. On admission creatinine at 2.97 Acute kidney injury possible prerenal vs ATN from poor intake, sepsis, or from hypotension Renal ultrasound: Small echogenic kidneys consistent with medical renal disease , 2.5 cm cyst in the inferior pole of the right kidney. Creatinine at 2.0, urinary output is improving. Plan Continue IVF's, oral fluids encouraged if tolerating well can be discontinued Maintain MAP for 65 mmhg, started on cortef for possible adrenal insufficiency, AM cortisol at 5.7 Blood pressure has improved Hypocalcemia corrected calcium at 8.1, on oral calcium replacement Avoid nephrotoxins including IV contrast and NSAIDS Will monitor urinary output and BMP (2) Anemia Code(s): D64.9 - Anemia, unspecified Status: Acute Qualifiers: Anemia type: iron deficiency Plan: HGB at improved at 7.6 Plan to transfuse 1 unit of PRBC (3) Acute UTI Code(s): N39.0 - Urinary tract infection, site not specified Status: Acute Plan: On antibiotics, renal dose as appropriate <Virginia Rubio - Last Filed: 03/01/18 13:51> - Assessment (1) Acute kidney injury Code(s): N17.9 - Acute kidney failure, unspecified Status: Acute Plan: Patient seen and examined, agree with above. Calcium is better, Creatinine is now 2.0. Continue IVF. (2) Anemia Code(s): D64.9 - Anemia, unspecified Status: Acute Qualifiers: Anemia type: iron deficiency (3) Acute UTI Code(s): N39.0 - Urinary tract infection, site not specified Status: Acute <Ana Lilia Bartholomew - Last Filed: 03/01/18 18:26>
[2018-03-01 14:17] LABS: % Iron Saturation 81.8 % (20-50)
--- NOTE | 2018-03-01 16:00 | P.PNONC ---
Subjective Interval history: Afebrile. Patient sitting up in bed, states that she feels great. She has no complaints at this time. Objective Vital Signs/Intake & Output: Vital Signs 02/28/18 16:00 02/28/18 19:30 02/28/18 20:00 Temperature 98.0 F 97.2 F L Pulse Rate 95 H 105 H 79 Respiratory Rate 16 17 Blood Pressure 99/50 L 108/50 L Pulse Oximetry 99 100 02/28/18 20:27 02/28/18 23:57 03/01/18 00:00 Temperature 98.3 F Pulse Rate 74 70 79 Respiratory Rate 16 18 Blood Pressure 100/54 L Pulse Oximetry 99 98 03/01/18 01:27 03/01/18 01:42 03/01/18 03:45 Temperature 98.0 F 97.9 F 97.9 F Pulse Rate 73 75 72 Respiratory Rate 20 20 18 Blood Pressure 104/57 L 94/52 L 105/56 L Pulse Oximetry 99 100 03/01/18 04:00 03/01/18 07:52 03/01/18 08:00 Temperature 97.9 F 98.0 F Pulse Rate 71 73 74 Respiratory Rate 18 16 16 Blood Pressure 105/56 L 130/62 Pulse Oximetry 100 99 96 03/01/18 12:00 Temperature 98.2 F Pulse Rate 79 Respiratory Rate 16 Blood Pressure 116/65 Pulse Oximetry 98 Intake & Output 02/28/18 03/01/18 03/01/18 18:59 06:59 18:59 Intake Total 1100 / 1100 1900 / 1900 Output Total 250 / 250 575 / 575 Balance 850 / 850 1325 / 1325 Weight 74.4 kg Intake: IV 1100 / 1100 1100 / 1100 Zosyn 2.25 GM Premix 50 ML @ 100 / 100 100 mls/hr IV.SIG Q6H MIRIAN Rx#: [id number] NS Inj 1,000 ML @ 100 mls/hr IV 1000 / 1000 1000 / 1000 .SIG .Q10H MIRIAN Rx#:[id number] Rocephin Inj 1,000 MG In NS Inj 100 / 100 100 ML @ 200 mls/hr IV.SIG Q24H MIRIAN Rx#:[id number] Oral 400 / 400 Intake (Blood Product) Amt 400 / 400 Rbc As-3 Leukoreduced Unit 400 / 400 [id number] Output: Urine 575 / 575 Urine Amount (Catheter) 250 / 250 Indwelling Urethral Catheter 250 / 250 Result Diagrams: 03/01/18 06:22 03/01/18 06:22 Laboratory Results: Laboratory Results - last 24 hr 02/28/18 02/28/18 02/28/18 21:43 21:43 21:43 WBC RBC Hgb Hct MCV MCH MCHC RDW Plt Count MPV Prelim Diff (Auto) Neut % (Auto) Lymph % (Auto) [place] % (Auto) Eos % (Auto) Baso % (Auto) Neut # (Auto) Lymph # (Auto) [place] # (Auto) Eos # (Auto) Baso # (Auto) WBC Differential Seg Neuts % (Manual) Band Neuts % (Manual) Lymphocytes % (Manual) Monocytes % (Manual) Eosinophils % (Manual) Basophils % (Manual) Abs Neuts (Manual) Differential Comment Platelet Estimate Platelet Morphology Dimorphic RBCs Spherocytes Tear Drop Cells Ovalocytes Retic Count Absolute Retic Hematology Comments Sodium Potassium Chloride Carbon Dioxide Anion Gap BUN Creatinine Estimated GFR Random Glucose Calcium Phosphorus Iron TIBC % Saturation Ferritin Albumin Vitamin B12 1025 H Folate 9.6 Blood Type A Positive Blood Type Recheck Required Antibody Screen Negative MTS Gel Crossmatch See Detail 03/01/18 03/01/18 03/01/18 06:22 06:22 06:22 WBC 5.0 RBC 2.19 L Hgb 7.6 L Hct 24.3 L MCV 111.0 H MCH 34.8 H MCHC 31.3 L RDW 26.0 H Plt Count 299 MPV 9.3 Prelim Diff (Auto) Slide review pending Neut % (Auto) 76.2 H Lymph % (Auto) 17.0 [place] % (Auto) 2.3 Eos % (Auto) 2.7 Baso % (Auto) 1.8 Neut # (Auto) 3.8 Lymph # (Auto) 0.8 L [place] # (Auto) 0.1 Eos # (Auto) 0.1 Baso # (Auto) 0.1 WBC Differential Manual diff final Seg Neuts % (Manual) 71 H Band Neuts % (Manual) 14 H Lymphocytes % (Manual) 8 L Monocytes % (Manual) 1 Eosinophils % (Manual) 4 Basophils % (Manual) 2 Abs Neuts (Manual) 4.3 Differential Comment . Platelet Estimate Normal Platelet Morphology Normal Dimorphic RBCs Present H Spherocytes Occ H Tear Drop Cells 1+ H Ovalocytes 1+ H Retic Count 1.8 Absolute Retic 38.7 Hematology Comments Sodium 143 Potassium 3.5 Chloride 109 H Carbon Dioxide 26.0 Anion Gap 8 BUN 12 Creatinine 2.00 H Estimated GFR 24 L Random Glucose 111 H Calcium 6.9 L* Phosphorus 3.1 Iron 129 TIBC 158 L % Saturation 81.5 H Ferritin 600 H Albumin 2.4 L Vitamin B12 Folate Blood Type Blood Type Recheck Antibody Screen MTS Gel Crossmatch 03/01/18 06:22 WBC RBC Hgb Hct MCV MCH MCHC RDW Plt Count MPV Prelim Diff (Auto) Neut % (Auto) Lymph % (Auto) [place] % (Auto) Eos % (Auto) Baso % (Auto) Neut # (Auto) Lymph # (Auto) [place] # (Auto) Eos # (Auto) Baso # (Auto) WBC Differential Seg Neuts % (Manual) Band Neuts % (Manual) Lymphocytes % (Manual) Monocytes % (Manual) Eosinophils % (Manual) Basophils % (Manual) Abs Neuts (Manual) Differential Comment Platelet Estimate Platelet Morphology Dimorphic RBCs Spherocytes Tear Drop Cells Ovalocytes Retic Count Absolute Retic Hematology Comments Sodium Potassium Chloride Carbon Dioxide Anion Gap BUN Creatinine Estimated GFR Random Glucose Calcium Phosphorus Iron 134 TIBC 164 L % Saturation 81.8 H Ferritin Albumin Vitamin B12 Folate Blood Type Blood Type Recheck Antibody Screen MTS Gel Crossmatch Culture Results: Microbiology 02/26/18 10:45 Aerobic Blood Culture - Preliminary Blood - Line No growth in 3 days Anaerobic Blood Culture - Preliminary No growth in 3 days 02/26/18 10:50 Aerobic Blood Culture - Preliminary Blood - Line No growth in 3 days Anaerobic Blood Culture - Preliminary No growth in 3 days 02/26/18 10:45 Urine Culture - Final Catheterized Urine Klebsiella pneumoniae Medications: Active Medications Generic Name Dose Route Start Last Admin Trade Name Freq PRN Reason Stop Dose Admin Acetaminophen 650 mg 02/26/18 13:18 02/28/18 16:11 Tylenol PO 650 mg Q4H PRN Administration Pain 1-10/Temp elevation Albuterol 1 ampul 02/26/18 20:00 03/01/18 07:51 Duoneb Neb (Mirian) NEB 1 ampul BID NEB MIRIAN Administration Calcium Carbonate 1,000 mg 02/28/18 11:00 03/01/18 10:07 Tums Chew PO 1,000 mg DAILY@1100 MIRIAN Administration Hydrocortisone Acetate 10 mg 02/28/18 09:00 03/01/18 10:03 Cortef PO 10 mg BID MIRIAN Administration Sodium Chloride 1,000 mls @ 100 mls/hr 02/28/18 06:15 03/01/18 15:29 Ns Inj IV.SIG 100 mls/hr .Q10H MIRIAN Administration Ceftriaxone Sodium 1,000 mg/ 100 mls @ 200 mls/hr 02/28/18 20:00 02/28/18 20: 06 Sodium Chloride IV.SIG Infused Q24H MIRIAN Infusion Levothyroxine Sodium 100 mcg 03/01/18 06:00 03/01/18 05:25 Synthroid PO 100 mcg DAILY@0600 MIRIAN Administration Pantoprazole Sodium 20 mg 02/27/18 09:00 03/01/18 10:04 Protonix PO 20 mg DAILY MIRIAN Administration Objective Remarks: GENERAL: Elderly female patient, sitting in bed, in no acute distress. SKIN: Warm and dry. HEAD: Normocephalic. EYES: No scleral icterus. No injection or drainage. NECK: Supple, trachea midline. CARDIOVASCULAR: Regular rate and rhythm without murmurs. RESPIRATORY: Breath sounds equal bilaterally. Nonlabored at rest. GASTROINTESTINAL: Abdomen soft, non-tender, nondistended. EXTREMITIES: No cyanosis, or edema. MUSCULOSKELETAL: Adequate muscle tone. NEUROLOGICAL: No obvious focal deficit. Awake, alert, and oriented x3. PSYCHIATRIC: Appropriate mood and affect; insight and judgment normal. Assessment/Plan - Plan Ms. 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 She has been on hydroxyurea since 2003. 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 She has been on Coumadin and has an IVC filter. The patient is currently admitted to the hospital and being treated for a urinary tract infection with Klebsiella. Hematology consulted for anemia. Plan: 1. Anemia, possibly secondary to renal failure. Status post Procrit 20,000 unit injection and transfusion of 1 unit of PRBC. Iron studies resulted, however this appears to have been resulted off post transfusion lab draw. I have re-ordered the iron studies to be performed on blood drawn prior to blood transfusions. Spoke to lab. 2. Urinary tract infection, management per attending. Continues on ceftriaxone. Patient had previously received Levaquin and Zosyn. 3. Continue supportive care.
[2018-03-01 17:54] LABS: % Iron Saturation 21.8 % (20-50)
--- NOTE | 2018-03-01 18:41 | P.PNPL ---
Subjective Interval history: 82 YOWF with Dementia, Pn Mental status much improved Alert, awake, follows commands Weaned to NC Appetite improved Seen by Hematology Physical Exam Vital signs: Vital Signs 02/28/18 19:30 02/28/18 20:00 02/28/18 20:27 Temperature 97.2 F L Pulse Rate 105 H 79 74 Respiratory Rate 17 16 Blood Pressure 108/50 L Pulse Oximetry 100 99 02/28/18 23:57 03/01/18 00:00 03/01/18 01:27 Temperature 98.3 F 98.0 F Pulse Rate 70 79 73 Respiratory Rate 18 20 Blood Pressure 100/54 L 104/57 L Pulse Oximetry 98 99 03/01/18 01:42 03/01/18 03:45 03/01/18 04:00 Temperature 97.9 F 97.9 F 97.9 F Pulse Rate 75 72 71 Respiratory Rate 20 18 18 Blood Pressure 94/52 L 105/56 L 105/56 L Pulse Oximetry 100 100 03/01/18 07:52 03/01/18 08:00 03/01/18 12:00 Temperature 98.0 F 98.2 F Pulse Rate 73 74 79 Respiratory Rate 16 16 16 Blood Pressure 130/62 116/65 Pulse Oximetry 99 96 98 Intake & Output 02/28/18 03/01/18 03/01/18 18:59 06:59 18:59 Intake Total 1100 / 1100 1900 / 1900 1000 / 1000 Output Total 250 / 250 575 / 575 800 / 800 Balance 850 / 850 1325 / 1325 200 / 200 Weight 74.4 kg Intake: IV 1100 / 1100 1100 / 1100 Zosyn 2.25 GM Premix 50 ML @ 100 / 100 100 mls/hr IV.SIG Q6H FUAD Rx#: [id number] NS Inj 1,000 ML @ 100 mls/hr IV 1000 / 1000 1000 / 1000 .SIG .Q10H FUAD Rx#:[id number] Rocephin Inj 1,000 MG In NS Inj 100 / 100 100 ML @ 200 mls/hr IV.SIG Q24H FUAD Rx#:[id number] Oral 400 / 400 1000 / 1000 Intake (Blood Product) Amt 400 / 400 Rbc As-3 Leukoreduced Unit 400 / 400 [id number] Output: Urine 575 / 575 800 / 800 Urine Amount (Catheter) 250 / 250 Indwelling Urethral Catheter 250 / 250 Other: # Bowel Movements 0 GENERAL: Elderly WF, NAD SKIN: Warm and dry. HEAD: Normocephalic. EYES: No scleral icterus. No injection or drainage. NECK: Supple, trachea midline. No JVD or lymphadenopathy. CARDIOVASCULAR: Regular rate and rhythm without murmurs, gallops, or rubs. RESPIRATORY: Breath sounds equal bilaterally. No accessory muscle use. GASTROINTESTINAL: Abdomen soft, non-tender, nondistended. MUSCULOSKELETAL: No cyanosis, or edema. BACK: Nontender without obvious deformity. No CVA tenderness. - Urinary Catheter Management Straight Cath placed during this visit: yes, but has since been removed by the nurse Reason for continuing: Hourly intake/output Insertion date: 02/27/18 Insertion time: 05:20 Removal date: 02/26/18 Removal time: 10:30 Indwelling Urethral Catheter Cath placed during this visit: yes Reason for continuing: Acute urinary retention Insertion date: 02/27/18 Insertion time: 05:00 Assessment and Plan - Plan IMPRESSION: 1. Respiratory failure. 2. Pneumonia, possible aspiration. 3. Dementia. 4. Anemia. 5. Renal insufficiency. 6. Hypokalemia. PLAN: Cont Abx Levaquin added , ID following Supplement 02 Aerosol nebs Procrit, PRBC per hematology
--- NOTE | 2018-03-01 22:22 | XR ---
EXAM DATE: 03/01/2018 8:09 PM EDT AGE/SEX: 82 years / Female INDICATIONS: Evaluate for aspiration. CLINICAL DATA: This is the patient's subsequent encounter. Patient reports that signs and symptoms h ave been present for 3 days and indicates a pain score of 0/10. MEDICAL/SURGICAL HISTORY: . Chronic obstructive pulmonary disease. Hypertension. Cardiovascular disease. None. COMPARISON: No prior exams available for comparison. FINDINGS: Two-view examination of the soft tissues of the neck demonstrates the hypopharyngeal airway to have a grossly normal configuration. The trachea is midline. No radiopaque foreign bodies are seen. Patie nt is edentulous. CONCLUSION: Negative exam. Electronically signed by: Pillo Harden MD 03/01/2018 10:21 PM EDT
--- NOTE | 2018-03-01 22:22 | XR ---
EXAM DATE: 03/01/2018 8:09 PM EDT AGE/SEX: 82 years / Female INDICATIONS: . Evaluate for pneumonia or aspiration. CLINICAL DATA: This is the patient's subsequent encounter. Patient reports that signs and symptoms h ave been present for 3 days and indicates a pain score of 0/10. MEDICAL/SURGICAL HISTORY: . Chronic obstructive pulmonary disease. Hypertension. Cardiovascular disease. None. COMPARISON: [facility] [place] [facility] [place] 1[place] SINGLE AP, 02/26/2018. . FINDINGS: There are patchy areas of opacity in the right perihilar and left suprahilar region characteristic of nonconsolidative infiltrates. The heart is mildly enlarged, stable from prior. No peribronchial thic kening. Both hemidiaphragms are well delineated. CONCLUSION: Bilateral perihilar infiltrates versus pulmonary edema. Electronically signed by: Pillo Harden MD 03/01/2018 10:20 PM EDT
[2018-03-02 04:05] LABS: Calcium 7.3 mg/dL (8.5-10.1); Carbon Dioxide 26.6 meq/L (21.0-32.0); Potassium 3.8 meq/L (3.5-5.1)
[2018-03-02 04:31] LABS: Total Protein 6.5 g/dL (6.4-8.2)
[2018-03-02] MEDS: Levothyroxine 100 MCG Tablet PO SCH (06:04)
[2018-03-02] MEDS: Pantoprazole Sodium 20 MG DR Tablet PO SCH (10:01)
[2018-03-02] MEDS: Hydrocortisone 10 MG Tablet PO SCH ×2 (10:01→22:04)
--- NOTE | 2018-03-02 10:04 | P.PNFP ---
Subjective Interval history: Feels good, Denies Cp, SOB Episode of choking last night [place] like food was stuck in throat last night Results - Labs Result diagrams: 03/01/18 06:22 03/02/18 02:45 Abnormal lab results 02/27/18 03/01/18 03/02/18 Range/Units 07:06 06:22 02:45 Sodium 146 H (136-145) meq/L Chloride 110 H (98-107) meq/L Creatinine 1.79 H (0.50-1.00) mg/dL Estimated GFR 27 L (>89) mL/min Random Glucose 120 H (74-106) mg/dL Calcium 7.3 L* (8.5-10.1) mg/dL Prot Corrected Calcium 7.6 L (8.5-10.1) mg/dL Iron 40 L (50-170) mcg/dL TIBC 183 L 164 L (250-450) mcg/dL % Saturation 81.8 H (20-50) % BMP 03/02/18 02:45 Sodium 146 H Potassium 3.8 Chloride 110 H Carbon Dioxide 26.6 BUN 10 Creatinine 1.79 H Calcium 7.3 L* - Imaging Impressions Chest X-Ray 03/01/18 20:09 CONCLUSION: Bilateral perihilar infiltrates versus pulmonary edema. Soft Tissue Neck X-Ray 03/01/18 20:09 CONCLUSION: Negative exam. Physical Exam Vital signs: Vital Signs 03/01/18 12:00 03/01/18 20:00 03/01/18 20:56 Temperature 98.2 F 97.7 F Pulse Rate 79 71 Respiratory Rate 16 18 Blood Pressure 116/65 134/65 Pulse Oximetry 98 100 100 03/02/18 00:00 03/02/18 04:00 03/02/18 08:00 Temperature 97.9 F 97.7 F 97.8 F Pulse Rate 80 70 71 Respiratory Rate 19 18 18 Blood Pressure 137/67 138/69 136/82 Pulse Oximetry 93 L 96 97 03/02/18 08:22 Temperature Pulse Rate 67 Respiratory Rate 16 Blood Pressure Pulse Oximetry 95 Intake & Output 03/01/18 03/02/18 03/02/18 18:59 06:59 18:59 Intake Total 1000 / 1000 1580 / 1580 Output Total 800 / 800 950 / 950 Balance 200 / 200 630 / 630 Weight 84.7 kg Intake: IV 1100 / 1100 NS Inj 1,000 ML @ 100 mls/hr IV 1000 / 1000 .SIG .Q10H [facility] Rx#:[id number] Rocephin Inj 1,000 MG In NS Inj 100 / 100 100 ML @ 200 mls/hr IV.SIG Q24H [facility] Rx#:[id number] Oral 1000 / 1000 480 / 480 Output: Urine 800 / 800 950 / 950 Other: Date of Last Bowel Movement 03/01/18 # Bowel Movements 0 - Constitutional no acute distress - Routine HEENT Exam ENT: Present: mucous membranes moist - Routine Neck Exam Present: supple - Routine Respiratory Exam Present: diminished air movement - Routine Cardiovascular Exam Present: S1, S2 - Routine Abdominal Exam Present: soft, normoactive bowel sounds - Routine Extremities Exam Present: edema - Routine Skin Exam Present: warm - Routine Neurological Exam Present: alert - Routine Psychiatric Exam Present: cooperative - Urinary Catheter Management Straight Cath placed during this visit: yes, but has since been removed by the nurse Reason for continuing: Hourly intake/output Insertion date: 02/27/18 Insertion time: 05:20 Removal date: 02/26/18 Removal time: 10:30 Indwelling Urethral Catheter Cath placed during this visit: yes Reason for continuing: Hourly intake/output Insertion date: 02/27/18 Insertion time: 05:00 Assessment and Plan - Assessment (1) Aspiration pneumonia Code(s): J69.0 - Pneumonitis due to inhalation of food and vomit Status: Acute Plan: Cont Zosyn, Levaquin pulmonary following bronchodilators, oxygen support (2) Acute UTI Code(s): N39.0 - Urinary tract infection, site not specified Status: Acute Plan: Urine grew Klebsiella pneumoniae sensitive to Zosyn. cont zosyn, ID following, cont to follow rec's (3) Hypokalemia Code(s): E87.6 - Hypokalemia Status: Acute Plan: resolved (4) Anemia Code(s): D64.9 - Anemia, unspecified Status: Acute Plan: Seen by Dr Zamorano, known to patient for thrombocythemia Transfused 1 unit, Procrit started, B12, folate. cont to monitor - Assessment and Plan 02/27/18 iiv abx pulmonary and ID consult Will get swallow eval Await for urinary sensitivity Patient voices that she had [place] disease as child ACTH pending. Will hold Seroquel for lethargy Cont to monitor 02/28/18- low urine out put reported on IVF 100/hr. B/P low throughout night 80/ 53, 51/51 this am. Renal consulted will order Ultrasound HX of [place] disease, cortisol level 5.7, cortef 10mg bid ordered. Family voices she should be on levothyroxine, records reviewed from snf, was not in in past facility. Will get Thyroid level. Hx chf, monitor fluid closely. no sign of fluid overload, will get cardiac on board if needed. Pna- on Levaquin, Zosyn, bronchodilators, oxygen support. Pulmonary following, Blood cultures negative x 24h. - Received call last evening that she ahd a chokig episodea nd complains of food in her throat. Xary done, no foreign body identified.CXR shows infiltrate vs pulmonary edema. ivf D/C as she is getting edematous. Renal functions cont to improve. UOP imroved. Sat's are maintained on 3 liters. labs pending this am, Likely get back to snf over weekend if cleared bu Pulmonary/ ID
[2018-03-02] MEDS: Sod Chloride 0.9% Inj 1,000 ML IV.SIG SCH (11:15)
[2018-03-02] MEDS: Acetaminophen 325 MG Tablet PO PRN ×2 (14:30→18:32)
--- NOTE | 2018-03-02 17:01 | P.PNPL ---
Subjective Interval history: 82 YOWF with Dementia, Pn Mental status much improved Alert, awake, follows commands Weaned to [place] Appetite improved Anxious to go back to gardens Physical Exam Vital signs: Vital Signs 03/01/18 20:00 03/01/18 20:56 03/02/18 00:00 Temperature 97.7 F 97.9 F Pulse Rate 71 80 Respiratory Rate 18 19 Blood Pressure 134/65 137/67 Pulse Oximetry 100 100 93 L 03/02/18 04:00 03/02/18 08:00 03/02/18 08:22 Temperature 97.7 F 97.8 F Pulse Rate 70 71 67 Respiratory Rate 18 18 16 Blood Pressure 138/69 136/82 Pulse Oximetry 96 97 95 03/02/18 12:00 Temperature 97.1 F L Pulse Rate 79 Respiratory Rate 16 Blood Pressure 134/61 Pulse Oximetry 94 L Intake & Output 03/01/18 03/02/18 03/02/18 18:59 06:59 18:59 Intake Total 1000 / 1000 1580 / 1580 1000 / 1000 Output Total 800 / 800 950 / 950 Balance 200 / 200 630 / 630 1000 / 1000 Weight 84.7 kg Intake: IV 1100 / 1100 1000 / 1000 NS Inj 1,000 ML @ 100 mls/hr IV 1000 / 1000 1000 / 1000 .SIG .Q10H [facility] Rx#:[id number] Rocephin Inj 1,000 MG In NS Inj 100 / 100 100 ML @ 200 mls/hr IV.SIG Q24H [facility] Rx#:[id number] Oral 1000 / 1000 480 / 480 Output: Urine 800 / 800 950 / 950 Other: Date of Last Bowel Movement 03/01/18 # Bowel Movements 0 GENERAL: Elderly Wf NAD SKIN: Warm and dry. HEAD: Normocephalic. EYES: No scleral icterus. No injection or drainage. NECK: Supple, trachea midline. No JVD or lymphadenopathy. CARDIOVASCULAR: Regular rate and rhythm without murmurs, gallops, or rubs. RESPIRATORY: Breath sounds equal bilaterally. No accessory muscle use. GASTROINTESTINAL: Abdomen soft, non-tender, nondistended. MUSCULOSKELETAL: No cyanosis, or edema. BACK: Nontender without obvious deformity. No CVA tenderness. - Urinary Catheter Management Straight Cath placed during this visit: yes, but has since been removed by the nurse Reason for continuing: Hourly intake/output Insertion date: 02/27/18 Insertion time: 05:20 Removal date: 02/26/18 Removal time: 10:30 Indwelling Urethral Catheter Cath placed during this visit: yes Reason for continuing: Hourly intake/output Insertion date: 02/27/18 Insertion time: 05:00 Assessment and Plan - Plan IMPRESSION: 1. Respiratory failure. 2. Pneumonia, possible aspiration. 3. Dementia. 4. Anemia. 5. Renal insufficiency. 6. Hypokalemia. PLAN: Cont Abx Levaquin added , ID following Supplement 02 Aerosol nebs DC plans underway
--- NOTE | 2018-03-02 20:19 | P.PNID ---
Subjective Remarks: Gram positive cocci in 1/4 bl clx bottles + aspiration? Antibiotics: CFTX Allergies/Adverse Reactions: Allergies No Known Allergies Allergy (Unverified 02/26/18 10:10) Objective Vital Signs 03/01/18 20:56 03/02/18 00:00 03/02/18 04:00 Temperature 97.9 F 97.7 F Pulse Rate 80 70 Respiratory Rate 19 18 Blood Pressure 137/67 138/69 Pulse Oximetry 100 93 L 96 03/02/18 08:00 03/02/18 08:22 03/02/18 12:00 Temperature 97.8 F 97.1 F L Pulse Rate 71 67 79 Respiratory Rate 18 16 16 Blood Pressure 136/82 134/61 Pulse Oximetry 97 95 94 L 03/02/18 16:00 03/02/18 19:39 Temperature 98.2 F Pulse Rate 70 74 Respiratory Rate 16 16 Blood Pressure 125/56 L Pulse Oximetry 95 96 Intake & Output 03/02/18 03/02/18 03/03/18 06:59 18:59 06:59 Intake Total 1580 / 1580 2100 / 2100 Output Total 950 / 950 300 / 300 Balance 630 / 630 1800 / 1800 Weight 84.7 kg Intake: IV 1100 / 1100 1000 / 1000 NS Inj 1,000 ML @ 100 mls/hr IV 1000 / 1000 1000 / 1000 .SIG .Q10H [facility] Rx#:[id number] Rocephin Inj 1,000 MG In NS Inj 100 / 100 100 ML @ 200 mls/hr IV.SIG Q24H [facility] Rx#:[id number] Oral 480 / 480 1100 / 1100 Output: Urine 950 / 950 300 / 300 Other: Date of Last Bowel Movement 03/01/18 # Bowel Movements 3 02/26/18 10:45 Blood - Line Aerobic Blood Culture - Preliminary gram positive cocci 02/26/18 10:45 Blood - Line Anaerobic Blood Culture - Preliminary No growth in 4 days 02/26/18 10:50 Blood - Line Aerobic Blood Culture - Preliminary No growth in 4 days 02/26/18 10:50 Blood - Line Anaerobic Blood Culture - Preliminary No growth in 4 days 02/26/18 10:45 Catheterized Urine Urine Culture - Final Klebsiella pneumoniae Lab - Hematology Results 03/01/18 03/01/18 06:22 06:22 WBC 5.0 RBC 2.19 L Hgb 7.6 L Hct 24.3 L MCV 111.0 H MCH 34.8 H MCHC 31.3 L RDW 26.0 H Plt Count 299 MPV 9.3 Prelim Diff (Auto) Slide review pending Neut % (Auto) 76.2 H Lymph % (Auto) 17.0 [place] % (Auto) 2.3 Eos % (Auto) 2.7 Baso % (Auto) 1.8 Neut # (Auto) 3.8 Lymph # (Auto) 0.8 L [place] # (Auto) 0.1 Eos # (Auto) 0.1 Baso # (Auto) 0.1 WBC Differential Manual diff final Seg Neuts % (Manual) 71 H Band Neuts % (Manual) 14 H Lymphocytes % (Manual) 8 L Monocytes % (Manual) 1 Eosinophils % (Manual) 4 Basophils % (Manual) 2 Abs Neuts (Manual) 4.3 Differential Comment . Platelet Estimate Normal Platelet Morphology Normal Dimorphic RBCs Present H Spherocytes Occ H Tear Drop Cells 1+ H Ovalocytes 1+ H Retic Count 1.8 Absolute Retic 38.7 Hematology Comments Lab - Chemistry Results 02/27/18 02/28/18 03/01/18 07:06 21:43 06:22 Sodium 143 Potassium 3.5 Chloride 109 H Carbon Dioxide 26.0 Anion Gap 8 BUN 12 Creatinine 2.00 H Estimated GFR 24 L Random Glucose 111 H Calcium 6.9 L* Prot Corrected Calcium Phosphorus 3.1 Iron 40 L 129 TIBC 183 L 158 L % Saturation 21.8 81.5 H Ferritin 600 H Total Protein Albumin 2.4 L Vitamin B12 1025 H Folate 9.6 03/01/18 03/02/18 06:22 02:45 Sodium 146 H Potassium 3.8 Chloride 110 H Carbon Dioxide 26.6 Anion Gap 9 BUN 10 Creatinine 1.79 H Estimated GFR 27 L Random Glucose 120 H Calcium 7.3 L* Prot Corrected Calcium 7.6 L Phosphorus Iron 134 TIBC 164 L % Saturation 81.8 H Ferritin Total Protein 6.5 D Albumin Vitamin B12 Folate Imaging: ITS Impressions Head CT 02/26/18 10:15 CONCLUSION: 1. 1.1 x 0.8 cm hyperdense mass in the right CP angle which likely reflects a meningioma. This does not have the typical appearance for hemorrhage although hemorrhage cannot be entirely excluded. Comparisons with prior exams if they can be made available would be beneficial in further evaluation. Alternatively, MRI examination with contrast may be obtained for better characterization. . Chest CT 02/27/18 13:34 CONCLUSION: 1. Chronic lung changes without evidence of consolidating airspace disease or significant edema. 2. Mild cardiomegaly 3. Old compression fractures of the thoracic spine. Abdomen/Bladder Ultrasound 02/28/18 00:00 CONCLUSION: 1. Small echogenic kidneys consistent with medical renal disease. 2. 2.5 cm cyst in the inferior pole of the right kidney. Chest X-Ray 03/01/18 20:09 CONCLUSION: Bilateral perihilar infiltrates versus pulmonary edema. Soft Tissue Neck X-Ray 03/01/18 20:09 CONCLUSION: Negative exam. Physical Exam: GENERAL: NAD SKIN: Warm and dry. No rash HEAD: Atraumatic. Normocephalic. EYES: Pupils equal and round. No scleral icterus. No injection or drainage. ENT: No nasal bleeding or discharge. Mucous membranes pink and moist. NECK: Trachea midline. No JVD. CARDIOVASCULAR: Regular rate and rhythm. + systolic ejection murmur RESPIRATORY: No accessory muscle use. Clear to auscultation. Breath sounds equal bilaterally. GASTROINTESTINAL: Abdomen soft, non-tender, nondistended. Hepatic and splenic margins not palpable. MUSCULOSKELETAL: Extremities without clubbing, cyanosis, + trace edema. No obvious deformities. NEUROLOGICAL: Awake and alert. Confused PSYCHIATRIC: unable to assess Assessment and Plan - Plan resp distress (whhez, abd breathing) ?sepsis (mental status change, bandemia) Likely PNA no e/o PNA on CT chest UTI, P. mirabilis dillon S New + blood clx low grade, 1/4 GPC ? significance clincially no s/o ongoing sepsis + alternative diagnoss cont CFTX for UTI fu bl clx unti,l final vanco is MSSA/MRSA or if fever o/w per final ID of the GPC
--- NOTE | 2018-03-02 21:35 | P.PNNP ---
Subjective Interval history: Patient is sleepy, arousable, not in distress, started eating better. Physical Exam Vital signs: Vital Signs 03/02/18 00:00 03/02/18 04:00 03/02/18 08:00 Temperature 97.9 F 97.7 F 97.8 F Pulse Rate 80 70 71 Respiratory Rate 19 18 18 Blood Pressure 137/67 138/69 136/82 Pulse Oximetry 93 L 96 97 03/02/18 08:22 03/02/18 12:00 03/02/18 16:00 Temperature 97.1 F L 98.2 F Pulse Rate 67 79 70 Respiratory Rate 16 16 16 Blood Pressure 134/61 125/56 L Pulse Oximetry 95 94 L 95 03/02/18 19:39 03/02/18 20:00 Temperature 98.0 F Pulse Rate 74 73 Respiratory Rate 16 17 Blood Pressure 144/71 H Pulse Oximetry 96 96 Intake & Output 03/02/18 03/02/18 03/03/18 06:59 18:59 06:59 Intake Total 1580 / 1580 2100 / 2100 Output Total 950 / 950 300 / 300 Balance 630 / 630 1800 / 1800 Weight 84.7 kg Intake: IV 1100 / 1100 1000 / 1000 NS Inj 1,000 ML @ 100 mls/hr IV 1000 / 1000 1000 / 1000 .SIG .Q10H [facility] Rx#:[id number] Rocephin Inj 1,000 MG In NS Inj 100 / 100 100 ML @ 200 mls/hr IV.SIG Q24H [facility] Rx#:[id number] Oral 480 / 480 1100 / 1100 Output: Urine 950 / 950 300 / 300 Other: Date of Last Bowel Movement 03/01/18 # Bowel Movements 3 Narrative: GENERAL: Alert and oriented to self SKIN: Warm and dry. HEAD: Normocephalic. EYES: No scleral icterus. No injection or drainage. NECK: Supple, trachea midline. No JVD or lymphadenopathy. CARDIOVASCULAR: Regular rate and rhythm without murmurs, gallops, or rubs. RESPIRATORY: Breath sounds equal bilaterally. No accessory muscle use. GASTROINTESTINAL: Abdomen soft, non-tender, nondistended. MUSCULOSKELETAL: No cyanosis, or edema. BACK: Nontender without obvious deformity. No CVA tenderness. - Urinary Catheter Management Straight Cath placed during this visit: yes, but has since been removed by the nurse Reason for continuing: Hourly intake/output Insertion date: 02/27/18 Insertion time: 05:20 Removal date: 02/26/18 Removal time: 10:30 Indwelling Urethral Catheter Cath placed during this visit: yes Reason for continuing: Hourly intake/output Insertion date: 02/27/18 Insertion time: 05:00 Assessment and Plan - Assessment (1) Acute kidney injury Code(s): N17.9 - Acute kidney failure, unspecified Status: Acute Plan: (1) Acute kidney injury Code(s): N17.9 - Acute kidney failure, unspecified Status: Acute Plan: Acute kidney injury with a creatinine of 2.07 on day of consult. On admission creatinine at 2.97 Acute kidney injury possible prerenal vs ATN from poor intake, sepsis, or from hypotension Renal ultrasound: Small echogenic kidneys consistent with medical renal disease , 2.5 cm cyst in the inferior pole of the right kidney. Creatinine continue to improve, now 1.7. Plan Continue IVF's, oral fluids encouraged if tolerating well can be discontinued Maintain MAP for 65 mmhg, started on cortef for possible adrenal insufficiency, AM cortisol at 5.7 Blood pressure has improved Hypocalcemia corrected calcium at 8.1, on oral calcium replacement Avoid nephrotoxins including IV contrast and NSAIDS Will monitor urinary output and BMP. One BC positive for Gram Positive Cocci, follow the sensitivity. (2) Anemia Code(s): D64.9 - Anemia, unspecified Status: Acute Qualifiers: Anemia type: iron deficiency Plan: HGB was low, and was transfused, follow the Hgb. (2) Anemia Code(s): D64.9 - Anemia, unspecified Status: Acute Qualifiers: Anemia type: due to chronic kidney disease Chronic kidney disease stage: stage 3 (moderate) Qualified Code(s): N18.3 - Chronic kidney disease, stage 3 (moderate); D63.1 - Anemia in chronic kidney disease Plan: HGB at improved at 7.6 Plan to transfuse 1 unit of PRBC (3) Acute UTI Code(s): N39.0 - Urinary tract infection, site not specified Status: Acute Plan: On antibiotics, renal dose as appropriate
[2018-03-03 06:05] LABS: Hematocrit 27.3 % (35.0-46.0); Hemoglobin 8.8 gm/dL (11.6-15.3); Mean Corpuscular HGB Conc 32.3 % (32.0-36.0); Mean Corpuscular Hemoglobin 34.4 pg (27.0-34.0); Mean Corpuscular Volume 106.5 fL (80.0-100.0); Mean Platelet Volume 8.6 fL (7.0-11.0); Platelet Count 423 th/mm3 (150-450); Red Blood Count 2.56 mil/mm3 (4.00-5.30); Red Cell Distribution Width 25.4 % (11.6-17.2); White Blood Count 5.7 th/mm3 (4.0-11.0)
[2018-03-03] MEDS: Levothyroxine 100 MCG Tablet PO SCH (06:06)
[2018-03-03 06:31] LABS: Calcium 7.6 mg/dL (8.5-10.1); Carbon Dioxide 26.2 meq/L (21.0-32.0); Potassium 3.5 meq/L (3.5-5.1)
[2018-03-03] MEDS: Pantoprazole Sodium 20 MG DR Tablet PO SCH (09:23)
[2018-03-03] MEDS: Hydrocortisone 10 MG Tablet PO SCH ×2 (09:23→20:42)
--- NOTE | 2018-03-03 10:52 | P.PNFP ---
Subjective Interval history: Had wheezing earlier today and received albuteral nebs. Still monitoring and will F/U Pulm recommendations. Results - Labs Result diagrams: 03/03/18 05:34 03/03/18 05:34 Abnormal lab results 03/03/18 03/03/18 Range/Units 05:34 05:34 RBC 2.56 L (4.00-5.30) mil/mm3 Hgb 8.8 L (11.6-15.3) gm/dL Hct 27.3 L (35.0-46.0) % MCV 106.5 H D (80.0-100.0) fL MCH 34.4 H (27.0-34.0) pg RDW 25.4 H (11.6-17.2) % Sodium 148 H (136-145) meq/L Chloride 113 H (98-107) meq/L Creatinine 1.61 H (0.50-1.00) mg/dL Estimated GFR 31 L (>89) mL/min Random Glucose 107 H (74-106) mg/dL Calcium 7.6 L (8.5-10.1) mg/dL Short CBC 03/03/18 Range/Units 05:34 WBC 5.7 (4.0-11.0) th/mm3 Hgb 8.8 L (11.6-15.3) gm/dL Hct 27.3 L (35.0-46.0) % Plt Count 423 D (150-450) th/mm3 BMP 03/03/18 05:34 Sodium 148 H Potassium 3.5 Chloride 113 H Carbon Dioxide 26.2 BUN 9 Creatinine 1.61 H Calcium 7.6 L Physical Exam Vital signs: Vital Signs 03/02/18 12:00 03/02/18 16:00 03/02/18 19:39 Temperature 97.1 F L 98.2 F Pulse Rate 79 70 74 Respiratory Rate 16 16 16 Blood Pressure 134/61 125/56 L Pulse Oximetry 94 L 95 96 03/02/18 20:00 03/03/18 00:00 03/03/18 04:00 Temperature 98.0 F 97.4 F L Pulse Rate 71 74 72 Respiratory Rate 17 18 Blood Pressure 144/71 H 136/70 Pulse Oximetry 96 94 L 03/03/18 06:10 03/03/18 08:00 03/03/18 09:07 Temperature 97.6 F Pulse Rate 74 76 75 Respiratory Rate 16 18 Blood Pressure 152/72 H Pulse Oximetry 95 93 L Intake & Output 03/02/18 03/03/18 03/03/18 18:59 06:59 18:59 Intake Total 2100 / 2100 340 / 340 Output Total 300 / 300 675 / 675 Balance 1800 / 1800 -335 / -335 Weight 84.7 kg Intake: IV 1000 / 1000 100 / 100 NS Inj 1,000 ML @ 100 mls/hr IV 1000 / 1000 .SIG .Q10H [facility] Rx#:[id number] Rocephin Inj 1,000 MG In NS Inj 100 / 100 100 ML @ 200 mls/hr IV.SIG Q24H [facility] Rx#:[id number] Oral 1100 / 1100 240 / 240 Output: Urine 300 / 300 Urine Amount (Catheter) 675 / 675 Indwelling Urethral Catheter / 675 Other: # Voids 600 # Bowel Movements 3 - Constitutional no acute distress - Routine HEENT Exam Head: Present: normocephalic Eye: Present: PERRL ENT: Present: mucous membranes moist - Routine Neck Exam Present: supple - Routine Respiratory Exam Present: wheezes - Routine Cardiovascular Exam Present: RRR, S1, S2 - Routine Abdominal Exam Present: soft, normoactive bowel sounds - Routine Extremities Exam Present: full ROM - Routine Skin Exam Present: intact - Routine Neurological Exam Present: alert - Detailed Neurological Exam: Coma Scale Eye Opening: Spontaneous Verbal Response: Oriented Motor Response: Obey commands Ruth Coma Scale Total: 15 - Routine Psychiatric Exam Present: normal affect - Urinary Catheter Management Straight Cath placed during this visit: yes, but has since been removed by the nurse Reason for continuing: Hourly intake/output Insertion date: 02/27/18 Insertion time: 05:20 Removal date: 02/26/18 Removal time: 10:30 Indwelling Urethral Catheter Cath placed during this visit: yes Reason for continuing: Hourly intake/output Insertion date: 02/27/18 Insertion time: 05:00 Assessment and Plan - Assessment (1) Aspiration pneumonia Code(s): J69.0 - Pneumonitis due to inhalation of food and vomit Status: Acute Plan: Cont antibiotics Zosyn, Levaquin and F/U pulmonary recommendations bronchodilators, oxygen support (2) Acute UTI Code(s): N39.0 - Urinary tract infection, site not specified Status: Acute Plan: Urine grew Klebsiella pneumoniae sensitive to Zosyn. cont zosyn, ID following, cont to follow rec's (3) Hypokalemia Code(s): E87.6 - Hypokalemia Status: Acute Plan: resolved (4) Anemia Code(s): D64.9 - Anemia, unspecified Status: Acute Plan: Seen by Dr Zamorano, known to patient for thrombocythemia Transfused 1 unit, Procrit started, B12, folate. cont to monitor - Assessment and Plan 02/27/18 iiv abx pulmonary and ID consult Will get swallow eval Await for urinary sensitivity Patient voices that she had [place] disease as child ACTH pending. Will hold Seroquel for lethargy Cont to monitor 02/28/18- low urine out put reported on IVF 100/hr. B/P low throughout night 80/ 53, 51/51 this am. Renal consulted will order Ultrasound HX of [place] disease, cortisol level 5.7, cortef 10mg bid ordered. Family voices she should be on levothyroxine, records reviewed from care home, was not in in past facility. Will get Thyroid level. Hx chf, monitor fluid closely. no sign of fluid overload, will get cardiac on board if needed. Pna- on Levaquin, Zosyn, bronchodilators, oxygen support. Pulmonary following, Blood cultures negative x 24h. - Received call last evening that she ahd a chokig episodea nd complains of food in her throat. Xary done, no foreign body identified.CXR shows infiltrate vs pulmonary edema. ivf D/C as she is getting edematous. Renal functions cont to improve. UOP imroved. Sat's are maintained on 3 liters. labs pending this am, Likely get back to snf over weekend if cleared bu Pulmonary/ ID 03/03/18 - Renal and Pulm are following. She C/O SOB earlier and received albuteral neb with improvement. Renal following and GFR up to 30 + ml/min. Will cont to monitor and F/U Pulm, ID and renal recommendations. (4) Anemia Qualifiers: Chronic kidney disease stage: stage 3 (moderate) Qualified Code(s): N18.3 - Chronic kidney disease, stage 3 (moderate); D63.1 - Anemia in chronic kidney disease
--- NOTE | 2018-03-03 11:07 | P.PNNP ---
Subjective Interval history: Patient is alert, now eating better, has mild SOB, with nasal canula. Physical Exam Vital signs: Vital Signs 03/02/18 12:00 03/02/18 16:00 03/02/18 19:39 Temperature 97.1 F L 98.2 F Pulse Rate 79 70 74 Respiratory Rate 16 16 16 Blood Pressure 134/61 125/56 L Pulse Oximetry 94 L 95 96 03/02/18 20:00 03/03/18 00:00 03/03/18 04:00 Temperature 98.0 F 97.4 F L Pulse Rate 71 74 72 Respiratory Rate 17 18 Blood Pressure 144/71 H 136/70 Pulse Oximetry 96 94 L 03/03/18 06:10 03/03/18 08:00 03/03/18 09:07 Temperature 97.6 F Pulse Rate 74 76 75 Respiratory Rate 16 18 Blood Pressure 152/72 H Pulse Oximetry 95 93 L Intake & Output 03/02/18 03/03/18 03/03/18 18:59 06:59 18:59 Intake Total 2100 / 2100 340 / 340 Output Total 300 / 300 675 / 675 Balance 1800 / 1800 -335 / -335 Weight 84.7 kg Intake: IV 1000 / 1000 100 / 100 NS Inj 1,000 ML @ 100 mls/hr IV 1000 / 1000 .SIG .Q10H FUAD Rx#:[id number] Rocephin Inj 1,000 MG In NS Inj 100 / 100 100 ML @ 200 mls/hr IV.SIG Q24H FUAD Rx#:[id number] Oral 1100 / 1100 240 / 240 Output: Urine 300 / 300 Urine Amount (Catheter) 675 / 675 Indwelling Urethral Catheter 675 / 675 Other: # Voids 600 # Bowel Movements 3 Narrative: GENERAL: Alert and oriented to self SKIN: Warm and dry. HEAD: Normocephalic. EYES: No scleral icterus. No injection or drainage. NECK: Supple, trachea midline. No JVD or lymphadenopathy. CARDIOVASCULAR: Regular rate and rhythm without murmurs, gallops, or rubs. RESPIRATORY: Breath sounds equal bilaterally. No accessory muscle use. GASTROINTESTINAL: Abdomen soft, non-tender, nondistended. MUSCULOSKELETAL: No cyanosis, or edema. BACK: Nontender without obvious deformity. No CVA tenderness. - Urinary Catheter Management Straight Cath placed during this visit: yes, but has since been removed by the nurse Reason for continuing: Hourly intake/output Insertion date: 02/27/18 Insertion time: 05:20 Removal date: 02/26/18 Removal time: 10:30 Indwelling Urethral Catheter Cath placed during this visit: yes Reason for continuing: Hourly intake/output Insertion date: 02/27/18 Insertion time: 05:00 Assessment and Plan - Assessment (1) Acute kidney injury Code(s): N17.9 - Acute kidney failure, unspecified Status: Acute Plan: (1) Acute kidney injury Code(s): N17.9 - Acute kidney failure, unspecified Status: Acute Plan: Acute kidney injury with a creatinine of 2.07 on day of consult. On admission creatinine at 2.97 Acute kidney injury possible prerenal vs ATN from poor intake, sepsis, or from hypotension Renal ultrasound: Small echogenic kidneys consistent with medical renal disease , 2.5 cm cyst in the inferior pole of the right kidney. Creatinine continue to improve, now 1.6. Encourage oral intake. Plan Continue IVF's, oral fluids encouraged if tolerating well can be discontinued Maintain MAP for 65 mmhg, started on cortef for possible adrenal insufficiency, AM cortisol at 5.7 Blood pressure has improved Hypocalcemia corrected calcium at 8.1, on oral calcium replacement Avoid nephrotoxins including IV contrast and NSAIDS Will monitor urinary output and BMP. One BC positive for Gram Positive Cocci, follow the sensitivity. (2) Anemia Code(s): D64.9 - Anemia, unspecified Status: Acute Qualifiers: Anemia type: iron deficiency Plan: HGB was low, and was transfused, follow the Hgb. (2) Anemia Code(s): D64.9 - Anemia, unspecified Status: Acute Qualifiers: Anemia type: due to chronic kidney disease Chronic kidney disease stage: stage 3 (moderate) Qualified Code(s): N18.3 - Chronic kidney disease, stage 3 (moderate); D63.1 - Anemia in chronic kidney disease Plan: HGB at improved at 7.6 Plan to transfuse 1 unit of PRBC (3) Acute UTI Code(s): N39.0 - Urinary tract infection, site not specified Status: Acute Plan: On antibiotics, renal dose as appropriate
--- NOTE | 2018-03-03 13:20 | P.PNONC ---
Subjective Interval history: Patient's only complaint is she wants to go home Objective Vital Signs/Intake & Output: Vital Signs 03/02/18 16:00 03/02/18 19:39 03/02/18 20:00 Temperature 98.2 F 98.0 F Pulse Rate 70 74 71 Respiratory Rate 16 16 17 Blood Pressure 125/56 L 144/71 H Pulse Oximetry 95 96 96 03/03/18 00:00 03/03/18 04:00 03/03/18 06:10 Temperature 97.4 F L Pulse Rate 74 72 74 Respiratory Rate 18 Blood Pressure 136/70 Pulse Oximetry 94 L 95 03/03/18 08:00 03/03/18 08:05 03/03/18 09:07 Temperature 97.6 F Pulse Rate 76 75 75 Respiratory Rate 16 18 Blood Pressure 152/72 H Pulse Oximetry 93 L 03/03/18 12:00 Temperature 97.1 F L Pulse Rate 76 Respiratory Rate 18 Blood Pressure 126/68 Pulse Oximetry 93 L Intake & Output 03/02/18 03/03/18 03/03/18 18:59 06:59 18:59 Intake Total 2100 / 2100 340 / 340 Output Total 300 / 300 675 / 675 Balance 1800 / 1800 -335 / -335 Weight 84.7 kg Intake: IV 1000 / 1000 100 / 100 NS Inj 1,000 ML @ 100 mls/hr IV 1000 / 1000 .SIG .Q10H FUAD Rx#:[id number] Rocephin Inj 1,000 MG In NS Inj 100 / 100 100 ML @ 200 mls/hr IV.SIG Q24H FUAD Rx#:[id number] Oral 1100 / 1100 240 / 240 Output: Urine 300 / 300 Urine Amount (Catheter) 675 / 675 Indwelling Urethral Catheter 675 / 675 Other: # Voids 600 # Bowel Movements 3 Result Diagrams: 03/03/18 05:34 03/03/18 05:34 Laboratory Results: Laboratory Results - last 24 hr 03/03/18 03/03/18 05:34 05:34 WBC 5.7 RBC 2.56 L Hgb 8.8 L Hct 27.3 L MCV 106.5 H D MCH 34.4 H MCHC 32.3 RDW 25.4 H Plt Count 423 D MPV 8.6 Sodium 148 H Potassium 3.5 Chloride 113 H Carbon Dioxide 26.2 Anion Gap 9 BUN 9 Creatinine 1.61 H Estimated GFR 31 L Random Glucose 107 H Calcium 7.6 L Culture Results: Microbiology 02/26/18 10:45 Aerobic Blood Culture - Preliminary Blood - Line gram positive cocci Anaerobic Blood Culture - Final No growth in 5 days 02/26/18 10:50 Aerobic Blood Culture - Final Blood - Line No growth in 5 days Anaerobic Blood Culture - Final No growth in 5 days Medications: Active Medications Generic Name Dose Route Start Last Admin Trade Name Freq PRN Reason Stop Dose Admin Acetaminophen 650 mg 02/26/18 13:18 03/02/18 18:32 Tylenol PO 650 mg Q4H PRN Administration Pain 1-10/Temp elevation Albuterol 1.25 mg 03/03/18 09:00 03/03/18 09:05 Albuterol Neb (Prn) INH 1.25 mg Q4HR NEB PRN Administration SOB/WHEEZING Calcium Carbonate 1,000 mg 02/28/18 11:00 03/03/18 12:31 Tums Chew PO 1,000 mg DAILY@1100 FUAD Administration Hydrocortisone Acetate 10 mg 02/28/18 09:00 03/03/18 09:23 Cortef PO 10 mg BID FUAD Administration Ceftriaxone Sodium 1,000 mg/ 100 mls @ 200 mls/hr 02/28/18 20:00 03/02/18 22: 48 Sodium Chloride IV.SIG Infused Q24H FUAD Infusion Levothyroxine Sodium 100 mcg 03/01/18 06:00 03/03/18 06:06 Synthroid PO 100 mcg DAILY@0600 FUAD Administration Pantoprazole Sodium 20 mg 02/27/18 09:00 03/03/18 09:23 Protonix PO 20 mg DAILY FUAD Administration Sodium Chloride 2 ml 02/26/18 10:15 03/02/18 22:05 Ns Flush IV.FLUSH 2 ml PRN PRN Administration FLUSH AFTER USING IV ACCESS Objective Remarks: GENERAL: Elderly, sedentary, obese, in no distress. SKIN: Warm and dry. HEAD: Normocephalic. EYES: No scleral icterus. No injection or drainage. NECK: Supple, trachea midline. No JVD or lymphadenopathy. LYMPHATIC: No adenopathy. CARDIOVASCULAR: Regular rate and rhythm without murmurs. RESPIRATORY: Breath sounds equal bilaterally. No accessory muscle use. GASTROINTESTINAL: Abdomen soft, non-tender, nondistended. EXTREMITIES: +1 edema. No tenderness. MUSCULOSKELETAL: Poor muscle tone. NEUROLOGICAL: No obvious focal deficit. Awake, alert, and oriented x3. PSYCHIATRIC: Appropriate mood and affect; insight and judgment normal. Assessment/Plan - Plan 1: The anemia is improving. I believe the exacerbation in her hemoglobin was due to the infection, renal failure, and hypothyroidism. I spoke with her daughter. It is clear that she was not taking the thyroid medicine. I recommended that when she returned to the [place] [facility] it is imperative that someone monitor her medicines. She must take her thyroid medicine. At this point the hydroxyurea will be discontinued permanently. I suspect it will take a number of weeks for her hemoglobin to improve but with resolution of sepsis, renal failure, and thyroid replacement I anticipate she is likely to have a good result. She does have a follow-up appointment with me. 2: She has a history of DVT. She has an IVC filter in place. She is not stable on her feet and therefore not be a good candidate for full dose Coumadin at this point. I am going to start her on Lovenox as her creatinine is now improved as she is at significant risk of developing DVT. At this point I have nothing further to add and will see as needed. Thank you
--- NOTE | 2018-03-03 14:20 | P.PNPL ---
Subjective Interval history: 82 YOWF with Dementia, Pn Alert, awake, follows commands Weaned to [place] Appetite improved Anxious to go back to gardens Physical Exam Vital signs: Vital Signs 03/02/18 16:00 03/02/18 19:39 03/02/18 20:00 Temperature 98.2 F 98.0 F Pulse Rate 70 74 71 Respiratory Rate 16 16 17 Blood Pressure 125/56 L 144/71 H Pulse Oximetry 95 96 96 03/03/18 00:00 03/03/18 04:00 03/03/18 06:10 Temperature 97.4 F L Pulse Rate 74 72 74 Respiratory Rate 18 Blood Pressure 136/70 Pulse Oximetry 94 L 95 03/03/18 08:00 03/03/18 08:05 03/03/18 09:07 Temperature 97.6 F Pulse Rate 76 75 75 Respiratory Rate 16 18 Blood Pressure 152/72 H Pulse Oximetry 93 L 03/03/18 12:00 Temperature 97.1 F L Pulse Rate 76 Respiratory Rate 18 Blood Pressure 126/68 Pulse Oximetry 93 L Intake & Output 03/02/18 03/03/18 03/03/18 18:59 06:59 18:59 Intake Total 2100 / 2100 340 / 340 Output Total 300 / 300 675 / 675 Balance 1800 / 1800 -335 / -335 Weight 84.7 kg Intake: IV 1000 / 1000 100 / 100 NS Inj 1,000 ML @ 100 mls/hr IV 1000 / 1000 .SIG .Q10H FUAD Rx#:[id number] Rocephin Inj 1,000 MG In NS Inj 100 / 100 100 ML @ 200 mls/hr IV.SIG Q24H FUAD Rx#:[id number] Oral 1100 / 1100 240 / 240 Output: Urine 300 / 300 Urine Amount (Catheter) 675 / 675 Indwelling Urethral Catheter 675 / 675 Other: # Voids 600 # Bowel Movements 3 GENERAL: Elderly WF, NAD SKIN: Warm and dry. HEAD: Normocephalic. EYES: No scleral icterus. No injection or drainage. NECK: Supple, trachea midline. No JVD or lymphadenopathy. CARDIOVASCULAR: Regular rate and rhythm without murmurs, gallops, or rubs. RESPIRATORY: Breath sounds equal bilaterally. No accessory muscle use. GASTROINTESTINAL: Abdomen soft, non-tender, nondistended. MUSCULOSKELETAL: No cyanosis, or edema. BACK: Nontender without obvious deformity. No CVA tenderness. - Urinary Catheter Management Straight Cath placed during this visit: yes, but has since been removed by the nurse Reason for continuing: Hourly intake/output Insertion date: 02/27/18 Insertion time: 05:20 Removal date: 02/26/18 Removal time: 10:30 Indwelling Urethral Catheter Cath placed during this visit: yes Reason for continuing: Hourly intake/output Insertion date: 02/27/18 Insertion time: 05:00 Assessment and Plan - Plan IMPRESSION: 1. Respiratory failure. 2. Pneumonia, possible aspiration. 3. Dementia. 4. Anemia. 5. Renal insufficiency. 6. Hypokalemia. PLAN: Cont Abx Levaquin added , ID following Supplement 02 Aerosol nebs DC plans underway. SQ lovenox
[2018-03-03] MEDS: Enoxaparin Inj 40 MG/0.4 ML Syringe SQ SCH (14:35)
[2018-03-04] MEDS: Levothyroxine 100 MCG Tablet PO SCH (05:27)
[2018-03-04 06:16] LABS: Hematocrit 28.8 % (35.0-46.0); Mean Corpuscular HGB Conc 31.1 % (32.0-36.0); Mean Corpuscular Volume 109.4 fL (80.0-100.0); Mean Platelet Volume 8.9 fL (7.0-11.0); Platelet Count 422 th/mm3 (150-450); Red Blood Count 2.63 mil/mm3 (4.00-5.30); Red Cell Distribution Width 25.5 % (11.6-17.2); White Blood Count 6.1 th/mm3 (4.0-11.0)
[2018-03-04 06:37] LABS: Calcium 7.3 mg/dL (8.5-10.1); Carbon Dioxide 25.6 meq/L (21.0-32.0); Potassium 3.4 meq/L (3.5-5.1)
[2018-03-04 07:16] LABS: Total Protein 6.3 g/dL (6.4-8.2)
[2018-03-04] MEDS: Pantoprazole Sodium 20 MG DR Tablet PO SCH (09:54)
[2018-03-04] MEDS: Hydrocortisone 10 MG Tablet PO SCH ×2 (09:54→20:58)
[2018-03-04] MEDS: Enoxaparin Inj 40 MG/0.4 ML Syringe SQ SCH (09:55)
--- NOTE | 2018-03-04 10:39 | P.PNFP ---
Subjective Interval history: Patient sitting up eating this AM and denies SOB breathing comfortably with O2 NC. Results - Labs Result diagrams: 03/04/18 05:28 03/04/18 05:28 Abnormal lab results 03/04/18 03/04/18 Range/Units 05:28 05:28 RBC 2.63 L (4.00-5.30) mil/mm3 Hgb 9.0 L (11.6-15.3) gm/dL Hct 28.8 L (35.0-46.0) % MCV 109.4 H (80.0-100.0) fL MCHC 31.1 L (32.0-36.0) % RDW 25.5 H (11.6-17.2) % Sodium 148 H (136-145) meq/L Potassium 3.4 L (3.5-5.1) meq/L Chloride 111 H (98-107) meq/L Creatinine 1.50 H (0.50-1.00) mg/dL Estimated GFR 33 L (>89) mL/min Random Glucose 108 H (74-106) mg/dL Calcium 7.3 L* (8.5-10.1) mg/dL Prot Corrected Calcium 7.7 L (8.5-10.1) mg/dL Total Protein 6.3 L (6.4-8.2) g/dL Short CBC 03/04/18 Range/Units 05:28 WBC 6.1 (4.0-11.0) th/mm3 Hgb 9.0 L (11.6-15.3) gm/dL Hct 28.8 L (35.0-46.0) % Plt Count 422 (150-450) th/mm3 BMP 03/04/18 05:28 Sodium 148 H Potassium 3.4 L Chloride 111 H Carbon Dioxide 25.6 BUN 7 Creatinine 1.50 H Calcium 7.3 L* Physical Exam Vital signs: Vital Signs 03/03/18 12:00 03/03/18 12:12 03/03/18 15:17 Temperature 97.1 F L Pulse Rate 76 77 72 Respiratory Rate 18 18 Blood Pressure 126/68 Pulse Oximetry 93 L 94 L 03/03/18 16:00 03/03/18 20:00 03/04/18 00:00 Temperature 97.7 F 98.3 F 89.4 F L Pulse Rate 78 68 73 Respiratory Rate 18 18 20 Blood Pressure 146/69 H 121/62 167/80 H Pulse Oximetry 94 L 98 91 L 03/04/18 06:40 03/04/18 08:00 Temperature 97.4 F L 98 F Pulse Rate 75 133 H Respiratory Rate 18 16 Blood Pressure 166/75 H 157/104 H Pulse Oximetry 97 93 L Intake & Output 03/03/18 03/04/18 03/04/18 18:59 06:59 18:59 Intake Total 340 / 340 Output Total 650 / 650 600 / 600 Balance -650 / -650 -260 / -260 Intake: IV 100 / 100 Rocephin Inj 1,000 MG In NS Inj 100 / 100 100 ML @ 200 mls/hr IV.SIG Q24H FUAD Rx#:[id number] Oral 240 / 240 Output: Urine 650 / 650 600 / 600 Other: Date of Last Bowel Movement 03/03/18 03/04/18 # Bowel Movements 1 # Incontinent Bowel Movements 1 - Constitutional no acute distress - Routine HEENT Exam Head: Present: normocephalic Eye: Present: normal accommodation ENT: Present: mucous membranes moist - Routine Respiratory Exam Present: distant breath sounds - Routine Cardiovascular Exam Present: RRR, S1, S2 - Routine Abdominal Exam Present: soft, normoactive bowel sounds - Routine Extremities Exam Present: full ROM - Routine Skin Exam Present: intact - Routine Neurological Exam Present: alert, oriented X3 - Detailed Neurological Exam: Coma Scale Eye Opening: Spontaneous Verbal Response: Oriented Motor Response: Obey commands Ruth Coma Scale Total: 15 - Routine Psychiatric Exam Present: normal affect - Urinary Catheter Management Straight Cath placed during this visit: yes, but has since been removed by the nurse Reason for continuing: Hourly intake/output Insertion date: 02/27/18 Insertion time: 05:20 Removal date: 02/26/18 Removal time: 10:30 Indwelling Urethral Catheter Cath placed during this visit: yes Reason for continuing: Hourly intake/output Insertion date: 02/27/18 Insertion time: 05:00 Assessment and Plan - Assessment (1) Aspiration pneumonia Code(s): J69.0 - Pneumonitis due to inhalation of food and vomit Status: Acute Plan: Cont antibiotics Zosyn, Levaquin and F/U pulmonary recommendations bronchodilators, oxygen support (2) Acute UTI Code(s): N39.0 - Urinary tract infection, site not specified Status: Acute Plan: Urine grew Klebsiella pneumoniae sensitive to Zosyn. cont zosyn, ID following, cont to follow rec's (3) Hypokalemia Code(s): E87.6 - Hypokalemia Status: Acute Plan: K 3.0 this AM will supplement and recheck in the AM. (4) Anemia Code(s): D64.9 - Anemia, unspecified Status: Acute Plan: Seen by Dr Zamorano, known to patient for thrombocythemia Transfused 1 unit, Procrit started, B12, folate. cont to monitor. Renal following and function gradually improving. - Assessment and Plan 02/27/18 iiv abx pulmonary and ID consult Will get swallow eval Await for urinary sensitivity Patient voices that she had [place] disease as child ACTH pending. Will hold Seroquel for lethargy Cont to monitor 02/28/18- low urine out put reported on IVF 100/hr. B/P low throughout night 80/ 53, 51/51 this am. Renal consulted will order Ultrasound HX of Sarbjit disease, cortisol level 5.7, cortef 10mg bid ordered. Family voices she should be on levothyroxine, records reviewed from [facility], was not in in past facility. Will get Thyroid level. Hx chf, monitor fluid closely. no sign of fluid overload, will get cardiac on board if needed. Pna- on Levaquin, Zosyn, bronchodilators, oxygen support. Pulmonary following, Blood cultures negative x 24h. - Received call last evening that she ahd a chokig episodea nd complains of food in her throat. Xary done, no foreign body identified.CXR shows infiltrate vs pulmonary edema. ivf D/C as she is getting edematous. Renal functions cont to improve. UOP imroved. Sat's are maintained on 3 liters. labs pending this am, Likely get back to snf over weekend if cleared bu Pulmonary/ ID 03/03/18 - Renal and Pulm are following. She C/O SOB earlier and received albuteral neb with improvement. Renal following and GFR up to 30 + ml/min. Will cont to monitor and F/U Pulm, ID and renal recommendations. 03/04/18 - Correct K and recheck in the AM. Renal function cont to improve. Will F/U Pulm and plan return to SNF when cleared. (4) Anemia Qualifiers: Chronic kidney disease stage: stage 3 (moderate) Qualified Code(s): N18.3 - Chronic kidney disease, stage 3 (moderate); D63.1 - Anemia in chronic kidney disease
--- NOTE | 2018-03-04 11:18 | P.PNNP ---
Subjective Interval history: Sitting up in bed with family at bedside. Creatinine continues to improve at 1.50 today, good urinary output. <Virginia Rubio - Last Filed: 03/04/18 11:11> Physical Exam Vital signs: Vital Signs 03/03/18 12:00 03/03/18 12:12 03/03/18 15:17 Temperature 97.1 F L Pulse Rate 76 77 72 Respiratory Rate 18 18 Blood Pressure 126/68 Pulse Oximetry 93 L 94 L 03/03/18 16:00 03/03/18 20:00 03/04/18 00:00 Temperature 97.7 F 98.3 F 89.4 F L Pulse Rate 78 68 73 Respiratory Rate 18 18 20 Blood Pressure 146/69 H 121/62 167/80 H Pulse Oximetry 94 L 98 91 L 03/04/18 06:40 03/04/18 08:00 03/04/18 11:03 Temperature 97.4 F L 98 F Pulse Rate 75 133 H Respiratory Rate 18 16 Blood Pressure 166/75 H 157/104 H Pulse Oximetry 97 93 L 93 L Intake & Output 03/03/18 03/04/18 03/04/18 18:59 06:59 18:59 Intake Total 340 / 340 Output Total 650 / 650 600 / 600 Balance -650 / -650 -260 / -260 Intake: IV 100 / 100 Rocephin Inj 1,000 MG In NS Inj 100 / 100 100 ML @ 200 mls/hr IV.SIG Q24H FUAD Rx#:[id number] Oral 240 / 240 Output: Urine 650 / 650 600 / 600 Other: Date of Last Bowel Movement 03/03/18 03/04/18 # Bowel Movements 1 # Incontinent Bowel Movements 1 Narrative: GENERAL: Alert and oriented to self SKIN: Warm and dry. HEAD: Normocephalic. EYES: No scleral icterus. No injection or drainage. NECK: Supple, trachea midline. No JVD or lymphadenopathy. CARDIOVASCULAR: Regular rate and rhythm without murmurs, gallops, or rubs. RESPIRATORY: Breath sounds equal bilaterally. No accessory muscle use. GASTROINTESTINAL: Abdomen soft, non-tender, nondistended. MUSCULOSKELETAL: No cyanosis, or edema. BACK: Nontender without obvious deformity. No CVA tenderness. - Urinary Catheter Management Straight Cath placed during this visit: yes, but has since been removed by the nurse Reason for continuing: Hourly intake/output Insertion date: 02/27/18 Insertion time: 05:20 Removal date: 02/26/18 Removal time: 10:30 Indwelling Urethral Catheter Cath placed during this visit: yes Reason for continuing: Hourly intake/output Insertion date: 02/27/18 Insertion time: 05:00 <Virginia Rubio - Last Filed: 03/04/18 11:11> Vital signs: Intake & Output 03/05/18 03/06/18 03/06/18 18:59 06:59 18:59 Other: Date of Last Bowel Movement 03/05/18 - Urinary Catheter Management Straight Cath placed during this visit: no Indwelling Urethral Catheter Cath placed during this visit: no <Ana Lilia Bartholomew - Last Filed: 03/06/18 18:03> Assessment and Plan - Assessment (1) Acute kidney injury Code(s): N17.9 - Acute kidney failure, unspecified Status: Acute Plan: Acute kidney injury with a creatinine of 2.07 on day of consult. On admission creatinine at 2.97 Acute kidney injury possible prerenal vs ATN from poor intake, sepsis, or from hypotension Renal ultrasound: Small echogenic kidneys consistent with medical renal disease , 2.5 cm cyst in the inferior pole of the right kidney. Creatinine continue to improve, now 1.5 Encourage oral intake. Plan Oral fluids encouraged Hypocalcemia will increase oral replacement Hypokalemia, replacement added Avoid nephrotoxins including IV contrast and NSAIDS Will monitor urinary output and BMP. (2) Anemia Code(s): D64.9 - Anemia, unspecified Status: Acute Qualifiers: Anemia type: due to chronic kidney disease Chronic kidney disease stage: stage 3 (moderate) Qualified Code(s): N18.3 - Chronic kidney disease, stage 3 (moderate); D63.1 - Anemia in chronic kidney disease Plan: HGB stable and improving. (3) Acute UTI Code(s): N39.0 - Urinary tract infection, site not specified Status: Acute Plan: On antibiotics, renal dose as appropriate (4) Hypertension Code(s): I10 - Essential (primary) hypertension Status: Acute Plan: Amlodipine added. <Virginia Rubio - Last Filed: 03/04/18 11:11> - Assessment (1) Acute kidney injury Code(s): N17.9 - Acute kidney failure, unspecified Status: Acute Plan: Patient seen and examined, agree with above. Creatinine is improving. (2) Anemia Code(s): D64.9 - Anemia, unspecified Status: Acute Qualifiers: Anemia type: due to chronic kidney disease Chronic kidney disease stage: stage 3 (moderate) Qualified Code(s): N18.3 - Chronic kidney disease, stage 3 (moderate); D63.1 - Anemia in chronic kidney disease (3) Acute UTI Code(s): N39.0 - Urinary tract infection, site not specified Status: Acute (4) Hypertension Code(s): I10 - Essential (primary) hypertension Status: Acute <Ana Lilia Bartholomew - Last Filed: 03/06/18 18:03>
[2018-03-04] MEDS: amLODIPine 10 MG Tablet PO SCH (11:41)
--- NOTE | 2018-03-04 16:37 | P.PNPL ---
Subjective Interval history: 82 YOWF with Dementia, Pn Alert, awake, follows commands Weaned to [place] Appetite improved Daughter at BS Physical Exam Vital signs: Vital Signs 03/03/18 20:00 03/04/18 00:00 03/04/18 06:40 Temperature 98.3 F 89.4 F L 97.4 F L Pulse Rate 68 73 75 Respiratory Rate 18 20 18 Blood Pressure 121/62 167/80 H 166/75 H Pulse Oximetry 98 91 L 97 03/04/18 08:00 03/04/18 11:03 03/04/18 11:44 Temperature 98 F Pulse Rate 133 H 75 Respiratory Rate 16 20 Blood Pressure 157/104 H Pulse Oximetry 93 L 93 L 03/04/18 12:00 Temperature 97.2 F L Pulse Rate 76 Respiratory Rate 14 Blood Pressure 151/76 H Pulse Oximetry 95 Intake & Output 03/03/18 03/04/18 03/04/18 18:59 06:59 18:59 Intake Total 340 / 340 Output Total 650 / 650 600 / 600 Balance -650 / -650 -260 / -260 Intake: IV 100 / 100 Rocephin Inj 1,000 MG In NS Inj 100 / 100 100 ML @ 200 mls/hr IV.SIG Q24H FUAD Rx#:[id number] Oral 240 / 240 Output: Urine 650 / 650 600 / 600 Other: Date of Last Bowel Movement 03/03/18 03/04/18 # Bowel Movements 1 # Incontinent Bowel Movements 1 GENERAL: Elderly WF NAD SKIN: Warm and dry. HEAD: Normocephalic. EYES: No scleral icterus. No injection or drainage. NECK: Supple, trachea midline. No JVD or lymphadenopathy. CARDIOVASCULAR: Regular rate and rhythm without murmurs, gallops, or rubs. RESPIRATORY: Breath sounds equal bilaterally. No accessory muscle use. GASTROINTESTINAL: Abdomen soft, non-tender, nondistended. MUSCULOSKELETAL: No cyanosis, or edema. BACK: Nontender without obvious deformity. No CVA tenderness. - Urinary Catheter Management Straight Cath placed during this visit: yes, but has since been removed by the nurse Reason for continuing: Hourly intake/output Insertion date: 02/27/18 Insertion time: 05:20 Removal date: 02/26/18 Removal time: 10:30 Indwelling Urethral Catheter Cath placed during this visit: yes Reason for continuing: Hourly intake/output Insertion date: 02/27/18 Insertion time: 05:00 Assessment and Plan - Plan IMPRESSION: 1. Respiratory failure. 2. Pneumonia, possible aspiration. 3. Dementia. 4. Anemia. 5. Renal insufficiency. 6. Hypokalemia. PLAN: Cont Abx Supplement 02 Aerosol nebs DC plans underway. SQ lovenox DW pt and her daughter
[2018-03-04] MEDS: Acetaminophen 325 MG Tablet PO PRN (19:09)
[2018-03-04] MEDS: Calcium Carbonate 500 MG Tablet PO SCH (21:03)
[2018-03-05] MEDS: Levothyroxine 100 MCG Tablet PO SCH (06:15)
[2018-03-05] MEDS: Acetaminophen 325 MG Tablet PO PRN (06:47)
[2018-03-05 06:49] VITALS: BP 156/75; TEMP 98.1; O2SAT 96
[2018-03-05 07:28] LABS: Baso # (Auto) 0.1 th/mm3 (0.0-0.2); Baso % (Auto) 1.7 % (0.0-2.0); Eos # (Auto) 0.2 th/mm3 (0.0-0.4); Eos % (Auto) 2.9 % (0.0-4.0); Hematocrit 26.9 % (35.0-46.0); Hemoglobin 8.8 gm/dL (11.6-15.3); Lymph # (Auto) 0.9 th/mm3 (1.0-4.8); Lymph % (Auto) 16.5 % (9.0-44.0); Mean Corpuscular HGB Conc 32.8 % (32.0-36.0); Mean Corpuscular Hemoglobin 34.9 pg (27.0-34.0); Mean Corpuscular Volume 106.3 fL (80.0-100.0); Mean Platelet Volume 8.6 fL (7.0-11.0); Mono # (Auto) 0.2 th/mm3 (0.0-0.9); Mono % (Auto) 3.2 % (0.0-8.0); Neut # (Auto) 3.9 th/mm3 (1.8-7.7); Neut % (Auto) 75.7 % (16.0-70.0); Platelet Count 453 th/mm3 (150-450); Red Blood Count 2.53 mil/mm3 (4.00-5.30); Red Cell Distribution Width 25.2 % (11.6-17.2); White Blood Count 5.2 th/mm3 (4.0-11.0)
[2018-03-05 08:32] LABS: Eosinophils 1 % (0-4); Lymphocytes 13 % (9-44); Monocytes 5 % (0-8); Platelet Morphology Normal (Normal)
[2018-03-05] MEDS: Enoxaparin Inj 40 MG/0.4 ML Syringe SQ SCH (08:41)
[2018-03-05] MEDS: Calcium Carbonate 500 MG Tablet PO SCH (08:41)
[2018-03-05] MEDS: Pantoprazole Sodium 20 MG DR Tablet PO SCH (08:42)
[2018-03-05] MEDS: Hydrocortisone 10 MG Tablet PO SCH (08:42)
[2018-03-05] MEDS: amLODIPine 10 MG Tablet PO SCH (08:42)
--- NOTE | 2018-03-05 09:14 | P.DS ---
Date of admission: 02/26/18 13:12 Primary care physician: Woody Don DO Brief History from admission: Patient is 82-year-old male was brought from [facility]. Mental status, patient is responsible for pain stimuli, lethargic, oriented to her name only. She has history of dementia COPD CHF. Present to ER with sat's of 84 on room air. She complained about pain all over. She has diminished breath sounds in both sides Poor historian. CT head unremarkable, positive for UTI DS: Diagnosis - Discharge Diagnosis (1) Aspiration pneumonia Status: Acute (2) Acute UTI Status: Acute (3) Hypokalemia Status: Acute (4) Anemia Status: Acute DS: Summary Hospital Course: : Patient is 82-year-old male was brought from [facility]. Mental status, patient is responsible for pain stimuli, lethargic, oriented to her name only. She has history of dementia COPD CHF, with O2 sat's 84 on room air. She complained about pain all over. She has diminished breath sounds in both sides. Poor historian, CT negative, found to have UTI ,and JOSE DANIEL Pulmonary consulted for resp distress, she was treated with bronchodilators, oxygen support Urine grew klebsiella pneumonia treated with Zosyn. Renal consulted for JOSE DANIEL hypocalcemia, trated with oral calcium, IVF, Renal U/s show small echogenic kidneys consistent with medical renal disease and 2.5 cm cyst in the inferior pole of the right kidney. Heme/oncology consulted per family request know to Dr Zamorano, anemia, given 1 unit of blood, restarted on Cortysn, and levothyroxine as this was not onmed list, but known to Dr Zamorano. Blood cultures show no growth on final. - Time Spent with Patient Total time spent providing and/or coordinating discharge services: 40 Greater than 30 minutes - Quality: AMI Clinical Trial Participant: No - Quality: Stroke Symptom Onset Unknown: No - Quality: VTE Is this test being ordered to rule out VTE?: No Deep Vein Thrombosis/Pulmonary Embolism Present on Admission: No Exam Vital signs: Vital Signs 03/04/18 11:03 03/04/18 11:44 03/04/18 12:00 Temperature 97.2 F L Pulse Rate 75 76 Respiratory Rate 20 14 Blood Pressure 151/76 H Pulse Oximetry 93 L 95 03/04/18 16:00 03/04/18 17:19 03/04/18 20:00 Temperature 97.1 F L 98 F Pulse Rate 79 78 Respiratory Rate 23 18 Blood Pressure 152/74 H 134/71 Pulse Oximetry 94 L 95 94 L 03/05/18 00:00 03/05/18 06:48 Temperature 97.6 F 98.1 F Pulse Rate 76 75 Respiratory Rate 18 17 Blood Pressure 133/76 156/75 H Pulse Oximetry 95 96 Intake & Output 03/04/18 03/05/18 03/05/18 18:59 06:59 18:59 Intake Total 360 / 360 920 / 920 Output Total 250 / 250 2125 / 2125 Balance 110 / 110 -1205 / -1205 Weight 84.7 kg Intake: IV 100 / 100 Rocephin Inj 1,000 MG In NS Inj 100 / 100 100 ML @ 200 mls/hr IV.SIG Q24H FUAD Rx#:[id number] Oral 360 / 360 820 / 820 Output: Urine 250 / 250 1450 / 1450 Urine Amount (Catheter) 675 / 675 Indwelling Urethral Catheter 675 / 675 Other: # Voids 600 Date of Last Bowel Movement 03/04/18 03/04/18 # Bowel Movements 1 1 # Incontinent Bowel Movements 1 - Constitutional no acute distress - Routine HEENT Exam Head: Present: normocephalic Eye: Present: PERRL ENT: Present: mucous membranes moist - Routine Neck Exam Present: supple - Routine Respiratory Exam Present: CTA bilaterally, diminished air movement (at bases, ) - Routine Cardiovascular Exam Present: S1, S2 - Routine Abdominal Exam Present: soft, normoactive bowel sounds - Routine Extremities Exam Present: edema - Routine Skin Exam Present: dry, warm, cracked - Routine Neurological Exam Present: alert, oriented X3 Results Procedures completed during hospitalization: n/a Labs on day of discharge: Labs from last 24 hours 03/05/18 06:33 WBC 5.2 RBC 2.53 L Hgb 8.8 L Hct 26.9 L MCV 106.3 H MCH 34.9 H MCHC 32.8 RDW 25.2 H Plt Count 453 H MPV 8.6 Prelim Diff (Auto) Slide review pending Neut % (Auto) 75.7 H Lymph % (Auto) 16.5 [place] % (Auto) 3.2 Eos % (Auto) 2.9 Baso % (Auto) 1.7 Neut # (Auto) 3.9 Lymph # (Auto) 0.9 L [place] # (Auto) 0.2 Eos # (Auto) 0.2 Baso # (Auto) 0.1 WBC Differential Manual diff final Seg Neuts % (Manual) 57 Band Neuts % (Manual) 21 H Lymphocytes % (Manual) 13 Monocytes % (Manual) 5 Eosinophils % (Manual) 1 Basophils % (Manual) 3 H Abs Neuts (Manual) 4.1 Differential Comment . Platelet Estimate High H Platelet Morphology Normal - Impressions ITS Impressions Head CT 02/26/18 10:15 CONCLUSION: 1. 1.1 x 0.8 cm hyperdense mass in the right CP angle which likely reflects a meningioma. This does not have the typical appearance for hemorrhage although hemorrhage cannot be entirely excluded. Comparisons with prior exams if they can be made available would be beneficial in further evaluation. Alternatively, MRI examination with contrast may be obtained for better characterization. . Chest CT 02/27/18 13:34 CONCLUSION: 1. Chronic lung changes without evidence of consolidating airspace disease or significant edema. 2. Mild cardiomegaly 3. Old compression fractures of the thoracic spine. Abdomen/Bladder Ultrasound 02/28/18 00:00 CONCLUSION: 1. Small echogenic kidneys consistent with medical renal disease. 2. 2.5 cm cyst in the inferior pole of the right kidney. Chest X-Ray 03/01/18 20:09 CONCLUSION: Bilateral perihilar infiltrates versus pulmonary edema. Soft Tissue Neck X-Ray 03/01/18 20:09 CONCLUSION: Negative exam. Discharge Plan - Discharge Disposition Patient Disposition: Discharge to SNF - Discharge Condition Condition: Serious - Discharge Order Discharge Orders: Discharge Order (Routine); Ordered 03/05/18 Ordered By: Jayne Fishman - Discharge Details Anticipated Discharge Date: 03/05/18 Discharge Comment: DC back to [facility] - Physicians Team Primary Care Provider: Woody Don Attending Provider: Woody Don Other Providers: Romario Wilks MD ; Kenia Mcclain MD ; [facility] ; Gil Cohn MD ; Jairo Zamorano MD
[2018-03-05 10:25] LABS: INR 1.2 Ratio; Prothrombin Time 12.1 sec (9.8-11.6)
[2018-03-05 11:11] VITALS: PULSE 73; RESP 16
--- NOTE | 2018-03-05 13:06 | P.PNNP ---
Subjective Interval history: Plans for discharge to [facility] rehab today <Virginia Rubio - Last Filed: 03/05/18 13:04> Physical Exam Vital signs: Vital Signs 03/04/18 16:00 03/04/18 17:19 03/04/18 20:00 Temperature 97.1 F L 98 F Pulse Rate 79 78 Respiratory Rate 23 18 Blood Pressure 152/74 H 134/71 Pulse Oximetry 94 L 95 94 L 03/05/18 00:00 03/05/18 06:48 03/05/18 10:10 Temperature 97.6 F 98.1 F Pulse Rate 76 75 Respiratory Rate 18 17 Blood Pressure 133/76 156/75 H Pulse Oximetry 95 96 96 03/05/18 11:10 Temperature Pulse Rate 73 Respiratory Rate 16 Blood Pressure Pulse Oximetry Intake & Output 03/04/18 03/05/18 03/05/18 18:59 06:59 18:59 Intake Total 360 / 360 920 / 920 Output Total 250 / 250 2125 / 2125 Balance 110 / 110 -1205 / -1205 Weight 84.7 kg Intake: IV 100 / 100 Rocephin Inj 1,000 MG In NS Inj 100 / 100 100 ML @ 200 mls/hr IV.SIG Q24H FUAD Rx#:[id number] Oral 360 / 360 820 / 820 Output: Urine 250 / 250 1450 / 1450 Urine Amount (Catheter) 675 / 675 Indwelling Urethral Catheter 675 / 675 Other: # Voids 600 Date of Last Bowel Movement 03/04/18 03/04/18 03/05/18 # Bowel Movements 1 1 # Incontinent Bowel Movements 1 Narrative: GENERAL: Alert and oriented to self SKIN: Warm and dry. HEAD: Normocephalic. EYES: No scleral icterus. No injection or drainage. NECK: Supple, trachea midline. No JVD or lymphadenopathy. CARDIOVASCULAR: Regular rate and rhythm without murmurs, gallops, or rubs. RESPIRATORY: Breath sounds equal bilaterally. No accessory muscle use. GASTROINTESTINAL: Abdomen soft, non-tender, nondistended. MUSCULOSKELETAL: No cyanosis, or edema. BACK: Nontender without obvious deformity. No CVA tenderness. - Urinary Catheter Management Straight Cath placed during this visit: yes, but has since been removed by the nurse Reason for continuing: Hourly intake/output Insertion date: 02/27/18 Insertion time: 05:20 Removal date: 02/26/18 Removal time: 10:30 Indwelling Urethral Catheter Cath placed during this visit: yes, but has since been removed by the nurse Reason for continuing: Not indwelling catheter Insertion date: 02/27/18 Insertion time: 05:00 Removal date: 03/05/18 Removal time: 11:00 <Virginia Rubio - Last Filed: 03/05/18 13:04> - Urinary Catheter Management Straight Cath placed during this visit: no Indwelling Urethral Catheter Cath placed during this visit: no <Ana Lilia Bartholomew - Last Filed: 03/08/18 10:35> Assessment and Plan - Assessment (1) Acute kidney injury Code(s): N17.9 - Acute kidney failure, unspecified Status: Acute Plan: Acute kidney injury with a creatinine of 2.07 on day of consult. On admission creatinine at 2.97 Acute kidney injury possible prerenal vs ATN from poor intake, sepsis, or from hypotension Renal ultrasound: Small echogenic kidneys consistent with medical renal disease , 2.5 cm cyst in the inferior pole of the right kidney. Creatinine stable Encourage oral intake. Plan Plan for discharge to Rehab today Will need to be followed outpatient with Nephrology. (2) Anemia Code(s): D64.9 - Anemia, unspecified Status: Acute Qualifiers: Anemia type: due to chronic kidney disease Chronic kidney disease stage: stage 3 (moderate) Qualified Code(s): N18.3 - Chronic kidney disease, stage 3 (moderate); D63.1 - Anemia in chronic kidney disease Plan: HGB stable and improving. (3) Acute UTI Code(s): N39.0 - Urinary tract infection, site not specified Status: Acute (4) Hypertension Code(s): I10 - Essential (primary) hypertension Status: Acute Plan: Amlodipine added. <Virginia Rubio - Last Filed: 03/05/18 13:04> - Assessment (1) Acute kidney injury Code(s): N17.9 - Acute kidney failure, unspecified Status: Acute Plan: Patient seen and examined, agree with above. Creatinine is better, for D/C to SNF. Has chronic kidney disease, will need out patient follow up. (2) Anemia Code(s): D64.9 - Anemia, unspecified Status: Acute Qualifiers: Anemia type: due to chronic kidney disease Chronic kidney disease stage: stage 3 (moderate) Qualified Code(s): N18.3 - Chronic kidney disease, stage 3 (moderate); D63.1 - Anemia in chronic kidney disease (3) Acute UTI Code(s): N39.0 - Urinary tract infection, site not specified Status: Acute (4) Hypertension Code(s): I10 - Essential (primary) hypertension Status: Acute <Ana Lilia Bartholomew - Last Filed: 03/08/18 10:35> Progress Note: Quality - AMI Clinical Trial Participant: No <Virginia Rubio - Last Filed: 03/05/18 13:04>
== END 2018-03-05 12:07 ==
LOC: NEPC 10:01 → NEDA 13:12 → N07 15:38
PROVIDERS: ADMIT Family Medicine; ATTEND Family Medicine